=== PATIENT | male | born 1965 ===

== ENCOUNTER 2020-04-02 10:17 | Outpatient (REF) | payer MEDICAID, SELFPAY ==
[2020-04-02 12:33] LABS: MANUAL DIFF FLAG NO
[2020-04-02 12:41] LABS: Basophils Absolute Auto 0.1 X10*3/uL (0.0-0.2); Basophils Percent Auto 0.8 % (0-2); Hematocrit 38.9 % (42-52); Hemoglobin 12.7 g/dl (14.0-18.0); Imm Gran Abs Auto 0.01 X10*3/uL (0.00-0.03); Imm Gran Pct Auto 0.1 % (0.0-0.4); Lymphocytes Absolute Auto 1.6 X10*3/uL (1.2-4.9); Lymphocytes Percent Auto 20.4 % (20-40); Mean Corpuscular HGB Conc 32.6 g/dl (31.0-36.0); Mean Corpuscular Hemoglobin 30.5 pg (27.0-33.0); Mean Corpuscular Volume 93.3 fL (80-98); Mean Platelet Volume 11.7 fL (9.4-12.4); Monocytes Absolute Auto 0.5 X10*3/uL (0.1-1.2); Monocytes Percent Auto 5.9 % (2-11); Neutrophils Absolute Auto 5.5 X10*3/uL (2.0-8.3); Neutrophils Percent Auto 72.8 % (45-73); Platelet Count 186 X10*3/uL (160-400); Red Blood Count 4.17 X10*6/uL (4.60-5.80); Red Cell Distribution Width 13.4 % (11.0-16.0); White Blood Count 7.6 X10*3/uL (4.8-10.8)
== END 2020-04-02 10:18 | disposition home or self-care (01) ==
LOC: HO.LAB 10:17
PROVIDERS: PCP Internal Medicine Geriatric Medicine; Visit Provider Clinical Nurse Specialist Psychiatric/Mental Health, Adult
DX: Z79.899 Other long term (current) drug therapy (principal)
CPT/HCPCS: 36415; 85025

== ENCOUNTER 2020-05-02 11:16 | Outpatient (REF) | payer MEDICAID, SELFPAY ==
[2020-05-02 12:36] LABS: MANUAL DIFF FLAG NO
[2020-05-02 12:44] LABS: Basophils Absolute Auto 0.1 X10*3/uL (0.0-0.2); Basophils Percent Auto 1.1 % (0-2); Hemoglobin 13.2 g/dl (14.0-18.0); Imm Gran Abs Auto 0.01 X10*3/uL (0.00-0.03); Imm Gran Pct Auto 0.2 % (0.0-0.4); Lymphocytes Absolute Auto 1.4 X10*3/uL (1.2-4.9); Lymphocytes Percent Auto 29.2 % (20-40); Mean Corpuscular HGB Conc 31.4 g/dl (31.0-36.0); Mean Corpuscular Hemoglobin 29.4 pg (27.0-33.0); Mean Corpuscular Volume 93.5 fL (80-98); Mean Platelet Volume 10.8 fL (9.4-12.4); Monocytes Absolute Auto 0.4 X10*3/uL (0.1-1.2); Monocytes Percent Auto 7.6 % (2-11); Neutrophils Absolute Auto 2.9 X10*3/uL (2.0-8.3); Neutrophils Percent Auto 61.9 % (45-73); Platelet Count 219 X10*3/uL (160-400); Red Blood Count 4.49 X10*6/uL (4.60-5.80); Red Cell Distribution Width 13.6 % (11.0-16.0); White Blood Count 4.7 X10*3/uL (4.8-10.8)
== END 2020-05-02 11:17 | disposition home or self-care (01) ==
LOC: HO.LABR 11:16
PROVIDERS: PCP Internal Medicine Geriatric Medicine; Visit Provider Clinical Nurse Specialist Psychiatric/Mental Health, Adult
DX: Z79.899 Other long term (current) drug therapy (principal)
CPT/HCPCS: 36415; 85025

== ENCOUNTER 2020-06-18 10:05 | Outpatient (REF) | payer MEDICAID, SELFPAY ==
[2020-06-18 10:54] LABS: MANUAL DIFF FLAG NO
[2020-06-18 10:57] LABS: Basophils Absolute Auto 0.1 X10*3/uL (0.0-0.2); Hematocrit 41.7 % (42-52); Hemoglobin 13.3 g/dl (14.0-18.0); Imm Gran Abs Auto 0.01 X10*3/uL (0.00-0.03); Imm Gran Pct Auto 0.2 % (0.0-0.4); Lymphocytes Absolute Auto 1.8 X10*3/uL (1.2-4.9); Lymphocytes Percent Auto 30.4 % (20-40); Mean Corpuscular HGB Conc 31.9 g/dl (31.0-36.0); Mean Corpuscular Volume 94.1 fL (80-98); Mean Platelet Volume 11.3 fL (9.4-12.4); Monocytes Absolute Auto 0.4 X10*3/uL (0.1-1.2); Monocytes Percent Auto 7.1 % (2-11); Neut%MD 61.3 %; Neutrophils Absolute Auto 3.7 X10*3/uL (2.0-8.3); Neutrophils Percent Auto 61.3 % (45-73); Platelet Count 196 X10*3/uL (160-400); Red Blood Count 4.43 X10*6/uL (4.60-5.80); Red Cell Distribution Width 13.5 % (11.0-16.0)
== END 2020-06-18 10:06 | disposition home or self-care (01) ==
LOC: HO.LAB 10:05
PROVIDERS: PCP Internal Medicine Geriatric Medicine; Visit Provider Clinical Nurse Specialist Psychiatric/Mental Health, Adult
DX: Z79.899 Other long term (current) drug therapy (principal)
CPT/HCPCS: 36415; 85025; 85048

== ENCOUNTER 2020-07-25 16:29 | Outpatient (REF) | payer MEDICAID, SELFPAY ==
[2020-07-25 17:17] LABS: MANUAL DIFF FLAG NO
[2020-07-25 17:21] LABS: Basophils Absolute Auto 0.1 X10*3/uL (0.0-0.2); Basophils Percent Auto 0.8 % (0-2); Hematocrit 41.8 % (42-52); Hemoglobin 13.5 g/dl (14.0-18.0); Imm Gran Abs Auto 0.01 X10*3/uL (0.00-0.03); Imm Gran Pct Auto 0.1 % (0.0-0.4); Lymphocytes Absolute Auto 1.9 X10*3/uL (1.2-4.9); Lymphocytes Percent Auto 27.1 % (20-40); Mean Corpuscular HGB Conc 32.3 g/dl (31.0-36.0); Mean Corpuscular Hemoglobin 29.7 pg (27.0-33.0); Mean Corpuscular Volume 92.1 fL (80-98); Mean Platelet Volume 10.8 fL (9.4-12.4); Monocytes Absolute Auto 0.5 X10*3/uL (0.1-1.2); Monocytes Percent Auto 6.7 % (2-11); Neut%MD 65.3 %; Neutrophils Absolute Auto 4.6 X10*3/uL (2.0-8.3); Neutrophils Percent Auto 65.3 % (45-73); Platelet Count 200 X10*3/uL (160-400); Red Blood Count 4.54 X10*6/uL (4.60-5.80); Red Cell Distribution Width 13.4 % (11.0-16.0); WBCANC 7.1 X10*3/uL; White Blood Count 7.1 X10*3/uL (4.8-10.8)
== END 2020-07-25 16:30 | disposition home or self-care (01) ==
LOC: HO.LAB 16:29
PROVIDERS: Visit Provider Clinical Nurse Specialist Psychiatric/Mental Health, Adult
DX: Z79.899 Other long term (current) drug therapy (principal)
CPT/HCPCS: 36415; 85025; 85048

== ENCOUNTER 2020-08-29 10:17 | Outpatient (REF) | payer MEDICAID, SELFPAY ==
[2020-08-29 11:08] LABS: MANUAL DIFF FLAG NO
[2020-08-29 11:17] LABS: Basophils Absolute Auto 0.1 X10*3/uL (0.0-0.2); Basophils Percent Auto 0.9 % (0-2); Eosinophils Absolute Auto 0.1 X10*3/uL (0.0-0.4); Eosinophils Percent Auto 2.2 % (0-4); Hematocrit 41.3 % (42-52); Hemoglobin 13.3 g/dl (14.0-18.0); Imm Gran Abs Auto 0.01 X10*3/uL (0.00-0.03); Imm Gran Pct Auto 0.2 % (0.0-0.4); Lymphocytes Absolute Auto 1.7 X10*3/uL (1.2-4.9); Mean Corpuscular HGB Conc 32.2 g/dl (31.0-36.0); Mean Corpuscular Hemoglobin 29.7 pg (27.0-33.0); Mean Corpuscular Volume 92.2 fL (80-98); Mean Platelet Volume 10.8 fL (9.4-12.4); Monocytes Absolute Auto 0.4 X10*3/uL (0.1-1.2); Monocytes Percent Auto 6.8 % (2-11); Neut%MD 58.9 %; Neutrophils Absolute Auto 3.2 X10*3/uL (2.0-8.3); Neutrophils Percent Auto 58.9 % (45-73); Platelet Count 201 X10*3/uL (160-400); Red Blood Count 4.48 X10*6/uL (4.60-5.80); Red Cell Distribution Width 13.4 % (11.0-16.0); WBCANC 5.5 X10*3/uL; White Blood Count 5.5 X10*3/uL (4.8-10.8)
== END 2020-08-29 10:18 | disposition home or self-care (01) ==
LOC: HO.LABR 10:17
PROVIDERS: PCP Internal Medicine Geriatric Medicine; Visit Provider Clinical Nurse Specialist Psychiatric/Mental Health, Adult
DX: Z79.899 Other long term (current) drug therapy (principal)
CPT/HCPCS: 36415; 85025; 85048

== ENCOUNTER 2020-09-25 14:59 | Outpatient (REF) | payer MEDICAID, SELFPAY ==
[2020-09-25 15:46] LABS: MANUAL DIFF FLAG NO
[2020-09-25 15:53] LABS: Basophils Absolute Auto 0.1 X10*3/uL (0.0-0.2); Hematocrit 41.5 % (42-52); Hemoglobin 13.4 g/dl (14.0-18.0); Imm Gran Abs Auto 0.02 X10*3/uL (0.00-0.03); Imm Gran Pct Auto 0.3 % (0.0-0.4); Lymphocytes Absolute Auto 2.1 X10*3/uL (1.2-4.9); Lymphocytes Percent Auto 30.8 % (20-40); Mean Corpuscular HGB Conc 32.3 g/dl (31.0-36.0); Mean Corpuscular Hemoglobin 29.8 pg (27.0-33.0); Mean Corpuscular Volume 92.2 fL (80-98); Mean Platelet Volume 10.8 fL (9.4-12.4); Monocytes Absolute Auto 0.4 X10*3/uL (0.1-1.2); Monocytes Percent Auto 5.6 % (2-11); Neutrophils Absolute Auto 4.2 X10*3/uL (2.0-8.3); Neutrophils Percent Auto 62.3 % (45-73); Platelet Count 205 X10*3/uL (160-400); Red Cell Distribution Width 13.2 % (11.0-16.0); White Blood Count 6.8 X10*3/uL (4.8-10.8)
== END 2020-09-25 15:00 | disposition home or self-care (01) ==
LOC: HO.LABR 14:59
PROVIDERS: Visit Provider Clinical Nurse Specialist Psychiatric/Mental Health, Adult
DX: Z79.899 Other long term (current) drug therapy (principal)
CPT/HCPCS: 36415; 85025

== ENCOUNTER 2020-10-25 10:37 | Outpatient (REF) | payer MEDICAID, SELFPAY ==
[2020-10-25 11:30] LABS: MANUAL DIFF FLAG NO
[2020-10-25 11:42] LABS: Basophils Absolute Auto 0.1 X10*3/uL (0.0-0.2); Basophils Percent Auto 0.6 % (0-2); Hematocrit 40.4 % (42-52); Hemoglobin 13.2 g/dl (14.0-18.0); Imm Gran Abs Auto 0.02 X10*3/uL (0.00-0.03); Imm Gran Pct Auto 0.3 % (0.0-0.4); Lymphocytes Percent Auto 24.9 % (20-40); Mean Corpuscular HGB Conc 32.7 g/dl (31.0-36.0); Mean Corpuscular Volume 91.8 fL (80-98); Mean Platelet Volume 10.9 fL (9.4-12.4); Monocytes Absolute Auto 0.4 X10*3/uL (0.1-1.2); Monocytes Percent Auto 5.6 % (2-11); Neutrophils Absolute Auto 5.4 X10*3/uL (2.0-8.3); Neutrophils Percent Auto 68.6 % (45-73); Platelet Count 197 X10*3/uL (160-400); Red Cell Distribution Width 13.3 % (11.0-16.0); White Blood Count 7.8 X10*3/uL (4.8-10.8)
== END 2020-10-25 10:38 | disposition home or self-care (01) ==
LOC: HO.LABR 10:37
PROVIDERS: PCP Internal Medicine Geriatric Medicine; Visit Provider Clinical Nurse Specialist Psychiatric/Mental Health, Adult
DX: Z79.899 Other long term (current) drug therapy (principal)
CPT/HCPCS: 36415; 85025

== ENCOUNTER 2020-11-21 09:35 | Outpatient (REF) | payer MEDICAID, SELFPAY ==
[2020-11-21 10:08] LABS: MANUAL DIFF FLAG NO
[2020-11-21 10:18] LABS: Basophils Absolute Auto 0.1 X10*3/uL (0.0-0.2); Basophils Percent Auto 1.1 % (0-2); Eosinophils Absolute Auto 0.1 X10*3/uL (0.0-0.4); Eosinophils Percent Auto 2.1 % (0-4); Hematocrit 38.2 % (42-52); Hemoglobin 12.2 g/dl (14.0-18.0); Imm Gran Abs Auto 0.03 X10*3/uL (0.00-0.03); Imm Gran Pct Auto 0.5 % (0.0-0.4); Lymphocytes Absolute Auto 1.9 X10*3/uL (1.2-4.9); Lymphocytes Percent Auto 32.9 % (20-40); Mean Corpuscular HGB Conc 31.9 g/dl (31.0-36.0); Mean Corpuscular Hemoglobin 29.5 pg (27.0-33.0); Mean Corpuscular Volume 92.5 fL (80-98); Mean Platelet Volume 10.7 fL (9.4-12.4); Monocytes Absolute Auto 0.5 X10*3/uL (0.1-1.2); Monocytes Percent Auto 8.3 % (2-11); Neutrophils Absolute Auto 3.1 X10*3/uL (2.0-8.3); Neutrophils Percent Auto 55.1 % (45-73); Platelet Count 200 X10*3/uL (160-400); Red Blood Count 4.13 X10*6/uL (4.60-5.80); Red Cell Distribution Width 13.4 % (11.0-16.0); White Blood Count 5.7 X10*3/uL (4.8-10.8)
== END 2020-11-21 09:36 | disposition home or self-care (01) ==
LOC: HO.LABR 09:35
PROVIDERS: PCP Internal Medicine Geriatric Medicine; Visit Provider Clinical Nurse Specialist Psychiatric/Mental Health, Adult
DX: Z79.899 Other long term (current) drug therapy (principal)
CPT/HCPCS: 36415; 85025

== ENCOUNTER 2021-01-15 11:04 | Outpatient (REF) | payer MEDICAID, SELFPAY ==
[2021-01-15 11:29] LABS: MANUAL DIFF FLAG NO
[2021-01-15 11:38] LABS: Basophils Absolute Auto 0.1 X10*3/uL (0.0-0.2); Basophils Percent Auto 0.7 % (0-2); Hematocrit 41.8 % (42-52); Hemoglobin 13.6 g/dl (14.0-18.0); Imm Gran Abs Auto 0.02 X10*3/uL (0.00-0.03); Imm Gran Pct Auto 0.2 % (0.0-0.4); Lymphocytes Absolute Auto 2.3 X10*3/uL (1.2-4.9); Lymphocytes Percent Auto 27.4 % (20-40); Mean Corpuscular HGB Conc 32.5 g/dl (31.0-36.0); Mean Corpuscular Hemoglobin 29.6 pg (27.0-33.0); Mean Corpuscular Volume 91.1 fL (80-98); Mean Platelet Volume 10.9 fL (9.4-12.4); Monocytes Absolute Auto 0.5 X10*3/uL (0.1-1.2); Monocytes Percent Auto 6.3 % (2-11); Neutrophils Absolute Auto 5.4 X10*3/uL (2.0-8.3); Neutrophils Percent Auto 65.4 % (45-73); Platelet Count 221 X10*3/uL (160-400); Red Blood Count 4.59 X10*6/uL (4.60-5.80); Red Cell Distribution Width 13.4 % (11.0-16.0); White Blood Count 8.2 X10*3/uL (4.8-10.8)
== END 2021-01-15 11:05 | disposition home or self-care (01) ==
LOC: HO.LABR 11:04
PROVIDERS: PCP Internal Medicine Geriatric Medicine; Visit Provider Clinical Nurse Specialist Psychiatric/Mental Health, Adult
DX: Z79.899 Other long term (current) drug therapy (principal)
CPT/HCPCS: 36415; 85025

== ENCOUNTER 2021-02-12 11:49 | Outpatient (REF) | payer MEDICAID, SELFPAY ==
[2021-02-12 12:34] LABS: MANUAL DIFF FLAG NO
[2021-02-12 12:38] LABS: Basophils Absolute Auto 0.1 X10*3/uL (0.0-0.2); Basophils Percent Auto 0.8 % (0-2); Hematocrit 41.5 % (42-52); Hemoglobin 13.2 g/dl (14.0-18.0); Imm Gran Abs Auto 0.03 X10*3/uL (0.00-0.03); Imm Gran Pct Auto 0.4 % (0.0-0.4); Lymphocytes Absolute Auto 2.2 X10*3/uL (1.2-4.9); Lymphocytes Percent Auto 25.9 % (20-40); Mean Corpuscular HGB Conc 31.8 g/dl (31.0-36.0); Mean Corpuscular Hemoglobin 29.6 pg (27.0-33.0); Mean Platelet Volume 10.7 fL (9.4-12.4); Monocytes Absolute Auto 0.4 X10*3/uL (0.1-1.2); Monocytes Percent Auto 4.9 % (2-11); Neutrophils Absolute Auto 5.8 X10*3/uL (2.0-8.3); Platelet Count 197 X10*3/uL (160-400); Red Blood Count 4.46 X10*6/uL (4.60-5.80); Red Cell Distribution Width 13.7 % (11.0-16.0); White Blood Count 8.5 X10*3/uL (4.8-10.8)
== END 2021-02-12 11:50 | disposition home or self-care (01) ==
LOC: HO.LABR 11:49
PROVIDERS: PCP Internal Medicine Geriatric Medicine; Visit Provider Clinical Nurse Specialist Psychiatric/Mental Health, Adult
DX: Z79.899 Other long term (current) drug therapy (principal)
CPT/HCPCS: 36415; 85025

== ENCOUNTER 2021-03-14 09:31 | Outpatient (REF) | payer MEDICAID, SELFPAY ==
[2021-03-14 09:51] LABS: MANUAL DIFF FLAG NO
[2021-03-14 10:52] LABS: Basophils Absolute Auto 0.1 X10*3/uL (0.0-0.2); Basophils Percent Auto 0.6 % (0-2); Imm Gran Abs Auto 0.03 X10*3/uL (0.00-0.03); Imm Gran Pct Auto 0.4 % (0.0-0.4); Lymphocytes Absolute Auto 2.1 X10*3/uL (1.2-4.9); Lymphocytes Percent Auto 26.5 % (20-40); Mean Corpuscular HGB Conc 33.3 g/dl (31.0-36.0); Mean Corpuscular Hemoglobin 30.4 pg (27.0-33.0); Mean Corpuscular Volume 91.3 fL (80-98); Mean Platelet Volume 11.4 fL (9.4-12.4); Monocytes Absolute Auto 0.5 X10*3/uL (0.1-1.2); Monocytes Percent Auto 6.3 % (2-11); Neutrophils Absolute Auto 5.4 X10*3/uL (2.0-8.3); Neutrophils Percent Auto 66.2 % (45-73); Platelet Count 200 X10*3/uL (160-400); Red Blood Count 4.27 X10*6/uL (4.60-5.80); Red Cell Distribution Width 14.2 % (11.0-16.0); White Blood Count 8.1 X10*3/uL (4.8-10.8)
[2021-03-14 11:27] LABS: Alanine Aminotransferase 25 U/L (0-40); Albumin Level 3.9 g/dL (3.5-5.0); Alkaline Phosphatase 103 U/L (39-117); Anion Gap 11 (12-20); Aspartate Amino Transferase 25 U/L (5-37); Bilirubin Total 0.6 mg/dL (0.0-1.0); Blood Urea Nitrogen 10 mg/dL (9-16); Calcium 8.9 mg/dL (8.4-10.2); Carbon Dioxide 27 mmol/L (22-29); Chloride 106 mmol/L (96-108); Cholesterol 103 mg/dL; Estimated Glomerular Filt Rate > 60; Glucose Random 161 mg/dL (60-115); HDL Cholesterol 32 mg/dL; LDL Cholesterol Calculated 37 mg/dl; Potassium 4.2 mmol/L (3.3-5.1); Sodium 140 mmol/L (135-145); Total Protein 6.3 g/dL (6.5-8.0); Triglycerides 171 mg/dL
== END 2021-03-14 09:32 | disposition home or self-care (01) ==
LOC: HO.LAB 09:31
PROVIDERS: Absent Provider Internal Medicine Geriatric Medicine; PCP Internal Medicine Geriatric Medicine; Visit Provider Clinical Nurse Specialist Psychiatric/Mental Health, Adult
DX: E11.9 Type 2 diabetes mellitus without complications (principal); Z79.899 Other long term (current) drug therapy
CPT/HCPCS: 36415; 80053; 80061; 85025

== ENCOUNTER 2021-04-11 16:37 | Outpatient (REF) | payer MEDICAID, SELFPAY ==
[2021-04-11 16:47] LABS: MANUAL DIFF FLAG NO
[2021-04-11 17:53] LABS: Basophils Absolute Auto 0.1 X10*3/uL (0.0-0.2); Basophils Percent Auto 0.6 % (0-2); Hematocrit 40.7 % (42.0-52.0); Imm Gran Abs Auto 0.02 X10*3/uL (0.00-0.03); Imm Gran Pct Auto 0.3 % (0.0-0.4); Lymphocytes Absolute Auto 2.8 X10*3/uL (1.2-4.9); Lymphocytes Percent Auto 35.8 % (20-40); Mean Corpuscular HGB Conc 31.9 g/dl (31.0-36.0); Mean Corpuscular Hemoglobin 29.7 pg (27.0-33.0); Mean Corpuscular Volume 92.9 fL (80.0-98.0); Mean Platelet Volume 10.8 fL (9.4-12.4); Monocytes Absolute Auto 0.4 X10*3/uL (0.1-1.2); Monocytes Percent Auto 5.4 % (2-11); Neut%MD 57.9 %; Neutrophils Absolute Auto 4.5 x10*3/uL (2.0-8.3); Neutrophils Percent Auto 57.9 % (45-73); Platelet Count 226 X10*3/uL (160-400); Red Blood Count 4.38 X10*6/uL (4.60-5.80); Red Cell Distribution Width 13.8 % (11.0-16.0); WBCANC 7.7 X10*3/uL; White Blood Count 7.7 X10*3/uL (4.8-10.8)
== END 2021-04-11 16:38 | disposition home or self-care (01) ==
LOC: HO.LABR 16:37
PROVIDERS: PCP Internal Medicine Geriatric Medicine; Visit Provider Clinical Nurse Specialist Psychiatric/Mental Health, Adult
DX: Z79.899 Other long term (current) drug therapy (principal)
CPT/HCPCS: 36415; 85025

== ENCOUNTER 2021-05-07 10:13 | Outpatient (REF) | payer MEDICAID, SELFPAY ==
[2021-05-07 10:24] LABS: MANUAL DIFF FLAG NO
[2021-05-07 10:38] LABS: Basophils Absolute Auto 0.1 X10*3/uL (0.0-0.2); Basophils Percent Auto 0.9 % (0-2); Hematocrit 41.2 % (42.0-52.0); Hemoglobin 13.3 g/dl (14.0-18.0); Imm Gran Abs Auto 0.01 X10*3/uL (0.00-0.03); Imm Gran Pct Auto 0.1 % (0.0-0.4); Lymphocytes Absolute Auto 1.5 X10*3/uL (1.2-4.9); Lymphocytes Percent Auto 20.7 % (20-40); Mean Corpuscular HGB Conc 32.3 g/dl (31.0-36.0); Mean Corpuscular Volume 92.8 fL (80.0-98.0); Mean Platelet Volume 10.1 fL (9.4-12.4); Monocytes Absolute Auto 0.4 X10*3/uL (0.1-1.2); Neut%MD 72.3 %; Neutrophils Absolute Auto 5.3 x10*3/uL (2.0-8.3); Neutrophils Percent Auto 72.3 % (45-73); Platelet Count 216 X10*3/uL (160-400); Red Blood Count 4.44 X10*6/uL (4.60-5.80); WBCANC 7.4 X10*3/uL; White Blood Count 7.4 X10*3/uL (4.8-10.8)
== END 2021-05-07 10:14 | disposition home or self-care (01) ==
LOC: HO.LAB 10:13
PROVIDERS: Visit Provider Clinical Nurse Specialist Psychiatric/Mental Health, Adult
DX: Z79.899 Other long term (current) drug therapy (principal)
CPT/HCPCS: 36415; 85025

== ENCOUNTER 2021-07-09 09:26 | Outpatient (REF) | payer MEDICAID, SELFPAY ==
[2021-07-09 09:52] LABS: MANUAL DIFF FLAG NO
[2021-07-09 10:04] LABS: Basophils Absolute Auto 0.1 X10*3/uL (0.0-0.2); Basophils Percent Auto 0.9 % (0-2); Hematocrit 41.9 % (42.0-52.0); Hemoglobin 13.5 g/dl (14.0-18.0); Imm Gran Abs Auto 0.04 X10*3/uL (0.00-0.03); Imm Gran Pct Auto 0.4 % (0.0-0.4); Lymphocytes Absolute Auto 2.2 X10*3/uL (1.2-4.9); Lymphocytes Percent Auto 23.8 % (20-40); Mean Corpuscular HGB Conc 32.2 g/dl (31.0-36.0); Mean Corpuscular Hemoglobin 29.9 pg (27.0-33.0); Mean Corpuscular Volume 92.9 fL (80.0-98.0); Mean Platelet Volume 10.7 fL (9.4-12.4); Monocytes Absolute Auto 0.5 X10*3/uL (0.1-1.2); Monocytes Percent Auto 5.3 % (2-11); Neut%MD 69.6 %; Neutrophils Absolute Auto 6.4 x10*3/uL (2.0-8.3); Neutrophils Percent Auto 69.6 % (45-73); Platelet Count 200 X10*3/uL (160-400); Red Blood Count 4.51 X10*6/uL (4.60-5.80); Red Cell Distribution Width 13.5 % (11.0-16.0); WBCANC 9.1 X10*3/uL; White Blood Count 9.1 X10*3/uL (4.8-10.8)
== END 2021-07-09 09:27 | disposition home or self-care (01) ==
LOC: HO.LABR 09:26
PROVIDERS: PCP Internal Medicine Geriatric Medicine; Visit Provider Clinical Nurse Specialist Psychiatric/Mental Health, Adult
DX: Z79.899 Other long term (current) drug therapy (principal)
CPT/HCPCS: 36415; 85025

== ENCOUNTER 2021-08-04 09:51 | Outpatient (REF) | payer MEDICAID, SELFPAY ==
[2021-08-04 10:19] LABS: MANUAL DIFF FLAG NO
[2021-08-04 10:59] LABS: Basophils Absolute Auto 0.1 X10*3/uL (0.0-0.2); Basophils Percent Auto 1.1 % (0-2); Hematocrit 42.6 % (42.0-52.0); Hemoglobin 13.3 g/dl (14.0-18.0); Imm Gran Abs Auto 0.02 X10*3/uL (0.00-0.03); Imm Gran Pct Auto 0.3 % (0.0-0.4); Lymphocytes Absolute Auto 1.7 X10*3/uL (1.2-4.9); Lymphocytes Percent Auto 25.9 % (20-40); Mean Corpuscular HGB Conc 31.2 g/dl (31.0-36.0); Mean Corpuscular Hemoglobin 29.2 pg (27.0-33.0); Mean Corpuscular Volume 93.6 fL (80.0-98.0); Mean Platelet Volume 11.1 fL (9.4-12.4); Monocytes Absolute Auto 0.4 X10*3/uL (0.1-1.2); Neutrophils Absolute Auto 4.2 x10*3/uL (2.0-8.3); Neutrophils Percent Auto 66.7 % (45-73); Platelet Count 187 X10*3/uL (160-400); Red Blood Count 4.55 X10*6/uL (4.60-5.80); Red Cell Distribution Width 13.5 % (11.0-16.0); White Blood Count 6.4 X10*3/uL (4.8-10.8)
== END 2021-08-04 09:52 | disposition home or self-care (01) ==
LOC: HO.LABR 09:51
PROVIDERS: PCP Internal Medicine Geriatric Medicine; Visit Provider Clinical Nurse Specialist Psychiatric/Mental Health, Adult
DX: Z79.899 Other long term (current) drug therapy (principal)
CPT/HCPCS: 36415; 85025

== ENCOUNTER 2021-09-04 09:33 | Outpatient (REF) | payer MEDICAID, SELFPAY ==
[2021-09-04 09:56] LABS: MANUAL DIFF FLAG NO
[2021-09-04 10:17] LABS: Basophils Absolute Auto 0.1 X10*3/uL (0.0-0.2); Basophils Percent Auto 1.6 % (0-2); Hemoglobin 13.1 g/dl (14.0-18.0); Imm Gran Abs Auto 0.01 X10*3/uL (0.00-0.03); Imm Gran Pct Auto 0.2 % (0.0-0.4); Lymphocytes Absolute Auto 2.1 X10*3/uL (1.2-4.9); Lymphocytes Percent Auto 37.6 % (20-40); Mean Corpuscular Hemoglobin 29.1 pg (27.0-33.0); Mean Corpuscular Volume 91.1 fL (80.0-98.0); Mean Platelet Volume 10.7 fL (9.4-12.4); Monocytes Absolute Auto 0.4 X10*3/uL (0.1-1.2); Monocytes Percent Auto 7.5 % (2-11); Neutrophils Percent Auto 53.1 % (45-73); Platelet Count 190 X10*3/uL (160-400); Red Cell Distribution Width 13.5 % (11.0-16.0); White Blood Count 5.6 X10*3/uL (4.8-10.8)
== END 2021-09-04 09:34 | disposition home or self-care (01) ==
LOC: HO.LABR 09:33
PROVIDERS: PCP Internal Medicine Geriatric Medicine; Visit Provider Clinical Nurse Specialist Psychiatric/Mental Health, Adult
DX: Z79.899 Other long term (current) drug therapy (principal)
CPT/HCPCS: 36415; 85025

== ENCOUNTER 2021-10-17 09:33 | Outpatient (REF) | payer MEDICAID, SELFPAY ==
[2021-10-22 17:02] LABS: Clozapine (Clozaril) 673 mcg/L; Norclozapine 219 mcg/L (25-400)
== END 2021-10-17 09:34 | disposition home or self-care (01) ==
LOC: HO.LAB 09:33
PROVIDERS: PCP Internal Medicine Geriatric Medicine; Visit Provider Clinical Nurse Specialist Psychiatric/Mental Health, Adult
DX: Z79.899 Other long term (current) drug therapy (principal)
CPT/HCPCS: 36415; 80159

== ENCOUNTER 2021-11-05 10:25 | Outpatient (REF) | payer MEDICAID, SELFPAY ==
[2021-11-05 10:49] LABS: MANUAL DIFF FLAG NO
[2021-11-05 11:50] LABS: Basophils Absolute Auto 0.1 X10*3/uL (0.0-0.2); Hematocrit 41.2 % (42.0-52.0); Hemoglobin 13.2 g/dl (14.0-18.0); Imm Gran Abs Auto 0.02 X10*3/uL (0.00-0.03); Imm Gran Pct Auto 0.4 % (0.0-0.4); Lymphocytes Absolute Auto 1.7 X10*3/uL (1.2-4.9); Lymphocytes Percent Auto 35.2 % (20-40); Mean Corpuscular Hemoglobin 29.2 pg (27.0-33.0); Mean Corpuscular Volume 91.2 fL (80.0-98.0); Mean Platelet Volume 11.5 fL (9.4-12.4); Monocytes Absolute Auto 0.3 X10*3/uL (0.1-1.2); Monocytes Percent Auto 5.3 % (2-11); Neutrophils Absolute Auto 2.9 x10*3/uL (2.0-8.3); Neutrophils Percent Auto 58.1 % (45-73); Platelet Count 197 X10*3/uL (160-400); Red Blood Count 4.52 X10*6/uL (4.60-5.80); Red Cell Distribution Width 13.9 % (11.0-16.0)
== END 2021-11-05 10:26 | disposition home or self-care (01) ==
LOC: HO.LABR 10:25
PROVIDERS: PCP Internal Medicine Geriatric Medicine; Visit Provider Clinical Nurse Specialist Psychiatric/Mental Health, Adult
DX: Z79.899 Other long term (current) drug therapy (principal)
CPT/HCPCS: 36415; 85025

== ENCOUNTER 2021-12-02 16:29 | Outpatient (REF) | payer MEDICAID, SELFPAY ==
[2021-12-02 16:46] LABS: MANUAL DIFF FLAG NO
[2021-12-02 17:05] LABS: Basophils Absolute Auto 0.1 X10*3/uL (0.0-0.2); Basophils Percent Auto 0.9 % (0-2); Hematocrit 40.5 % (42.0-52.0); Hemoglobin 13.3 g/dl (14.0-18.0); Imm Gran Abs Auto 0.02 X10*3/uL (0.00-0.03); Imm Gran Pct Auto 0.2 % (0.0-0.4); Lymphocytes Percent Auto 24.8 % (20-40); Mean Corpuscular HGB Conc 32.8 g/dl (31.0-36.0); Mean Corpuscular Hemoglobin 29.5 pg (27.0-33.0); Mean Corpuscular Volume 89.8 fL (80.0-98.0); Mean Platelet Volume 10.8 fL (9.4-12.4); Monocytes Absolute Auto 0.5 X10*3/uL (0.1-1.2); Neutrophils Absolute Auto 5.5 x10*3/uL (2.0-8.3); Neutrophils Percent Auto 68.1 % (45-73); Platelet Count 189 X10*3/uL (160-400); Red Blood Count 4.51 X10*6/uL (4.60-5.80); Red Cell Distribution Width 13.7 % (11.0-16.0)
== END 2021-12-02 16:30 | disposition home or self-care (01) ==
LOC: HO.LABR 16:29
PROVIDERS: PCP Internal Medicine Geriatric Medicine; Visit Provider Clinical Nurse Specialist Psychiatric/Mental Health, Adult
DX: Z79.899 Other long term (current) drug therapy (principal)
CPT/HCPCS: 36415; 85025

== ENCOUNTER 2021-12-11 10:58 | Emergency (ER) | payer MEDICAID, SELFPAY ==
[2021-12-11 11:26] VITALS: BP 104/77; PULSE 95; RESP 18; TEMP 36.8; O2SAT 97; BMI 29.9
--- NOTE | 2021-12-11 14:15 | ED_ITS ---
HPI - Animal Bite General Chief Complaint: Animal Bite Stated Complaint: ? bit by bat Time Seen by Provider: 12/11/21 13:22 Source: patient Mode of arrival: ambulatory History of Present Illness HPI narrative: 56-year-old male with no significant past medical history presenting to the ED complaining of bad exposure 2-3 days ago. Reports about was flying around his home, denies known a bite/scratch. Patient admits he was able to kill the bat. Tetanus out of date MD complaint: possible animal exposure Onset (ago): day(s) Related Data Allergies Allergy/AdvReac Type Severity Reaction Status Date / Time No Known Allergies Allergy Mild NONE Verified 12/11/21 11:25 Review of Systems Review of Systems: Constitutional: No Fever, No Chills ENT/Mouth: No Ear Pain, No Nasal Congestion, No sore throat, No Rhinorrhea, No Swallowing Difficulty Cardiovascular: No Chest Pain, No SOB Respiratory: No Cough, No Sputum, No Wheezing Gastrointestinal: No Nausea, No Vomiting, No Diarrhea, No Constipation, No Abdominal pain Genitourinary: No Dysuria, No Urinary Frequency, No Hematuria Musculoskeletal: No joint pain, No Myalgias, No Joint Swelling Skin: No Skin Lesions, No rash Neuro: No Weakness, No Numbness, No Paresthesias Yes all other systems are reviewed and are negative Constitutional: Constitutional: Reports as per HPI [facility] Past Medical History Attestation statement: The following information was validated with the patient. Social History Social History Advance Directives: No Advance Directives Information Provided: No Physical Exam ED Vital Signs: Vital Signs - 24 hr 12/11/21 11:26 Temperature 98.2 F Pulse Rate 95 Respiratory Rate 18 Blood Pressure 104/77 Pulse Oximetry 97 Oxygen Delivery Method Room Air BMI result Body Mass Index 29.9 Const General: cooperative, healthy appearing and no acute distress Orientation/consciousness: patient oriented x3 Limitations: no limitations HENMT Head: Yes normal to inspection and Yes atraumatic Ears: hearing grossly normal bilaterally General nose exam: Normal external nose present Face and sinus: Yes normal facial exam Eyes General: appearance normal, both eyes and all related structures EOM: EOMs intact bilaterally Neck Neck: Yes normal visual inspection and Yes no meningeal signs Resp Effort & Inspection: normal respiratory effort and no respiratory distress Auscultation: clear to auscultation bilaterally Cardio Rate: regular rate Heart sounds: S1 normal heart sound present and S2 normal heart sound present Skin Rashes: no rashes Wounds: no wounds Neuro General: patient oriented x3, tone normal and no meningeal signs Gait exam (Neuro): Normal gait present Extrem General: Yes normal to inspection MDM - Animal Bite MDM Narrative Medical decision making narrative: 56-year-old male with no significant past medical history presenting to the ED complaining of bad exposure 2-3 days ago. On exam vital signs stable, NAD/nontoxic-appearing, asymptomatic at present. No appreciable bite wound. Will give rabies immune globulin, vaccine, and update tetanus Differential Diagnosis Differential diagnosis: Likely bite by animal and rabies contact Medical Records Attestation: I reviewed the patient's medical records. Lab Data Attestation: I reviewed the patient's lab results. Discharge Plan Discharge Clinical Impression: Bite by animal Patient Disposition: Home, Self-Care Instructions: Rabies (ED) Additional Instructions: You need to return to medical day stay on 12/14, 12/18, and 12/25 for the remainder your rabies vaccinations MEDICAL DAY STAY [phone] YOUR TETANUS WAS ALSO UPDATED TODAY IN THE EMERGENCY DEPARTMENT PLEASE FOLLOW-UP WITH HER DOCTOR NEEDED
[2021-12-11] MEDS: Diphth,Pertus(ACell),Tet Adult 0.5 ML SYRINGE IM (15:00)
[2021-12-11] MEDS: Rabies Vaccine (PCEC)/PF 1 ML VIAL IM (15:03)
[2021-12-11] MEDS: Rabies Immune Globulin/PF 900 UNIT/3 ML VIAL 1738 UNIT IM (15:06)
== END 2021-12-11 15:42 | disposition home or self-care (01) ==
PROVIDERS: Emergency Provider Emergency Medicine Emergency Medical Services; PCP Internal Medicine Geriatric Medicine
DX: T14.8XXA Other injury of unspecified body region, initial encounter (principal); W55.81XA Bitten by other mammals, initial encounter; Y93.9 Activity, unspecified; Y92.039 Unspecified place in apartment as the place of occurrence of the external cause; Y99.9 Unspecified external cause status; Z20.3 Contact with and (suspected) exposure to rabies
CPT/HCPCS: 90375; 90471; 90472; 90675; 90715; 96372; 99283; 99284

== ENCOUNTER 2021-12-15 13:55 | Outpatient (REF) | payer MEDICAID, SELFPAY | END 2021-12-15 13:56 | disposition home or self-care (01) | LOC: HO.MDS 13:55 | PROVIDERS: Visit Provider Physician Assistant | DX: Z29.14 Encounter for prophylactic rabies immune globulin (principal); Z20.3 Contact with and (suspected) exposure to rabies | CPT/HCPCS: 90471; 90675 ==

== ENCOUNTER 2021-12-19 14:23 | Outpatient (REF) | payer MEDICAID, SELFPAY | END 2021-12-19 14:24 | disposition home or self-care (01) | LOC: HO.MDS 14:23 | PROVIDERS: Visit Provider Physician Assistant | DX: Z29.14 Encounter for prophylactic rabies immune globulin (principal); T14.8XXD Other injury of unspecified body region, subsequent encounter; W53.81XD Bitten by other rodent, subsequent encounter; Z20.3 Contact with and (suspected) exposure to rabies | CPT/HCPCS: 90471; 90675 ==

== ENCOUNTER 2021-12-26 09:05 | Outpatient (REF) | payer MEDICAID, SELFPAY | END 2021-12-26 09:06 | disposition home or self-care (01) | LOC: HO.MDS 09:05 | PROVIDERS: Visit Provider Physician Assistant | DX: Z29.14 Encounter for prophylactic rabies immune globulin (principal); T14.8XXD Other injury of unspecified body region, subsequent encounter; W53.81XD Bitten by other rodent, subsequent encounter; Z20.3 Contact with and (suspected) exposure to rabies | CPT/HCPCS: 90471; 90675 ==

== ENCOUNTER 2022-01-22 12:29 | Outpatient (REF) | payer MEDICAID, SELFPAY ==
[2022-01-22 13:23] LABS: Basophils Absolute Auto 0.1 X10*3/uL (0.0-0.2); Basophils Percent Auto 1.1 % (0-2); Hematocrit 39.9 % (42.0-52.0); Hemoglobin 13.1 g/dl (14.0-18.0); Imm Gran Abs Auto 0.03 X10*3/uL (0.00-0.03); Imm Gran Pct Auto 0.3 % (0.0-0.4); Lymphocytes Absolute Auto 2.5 X10*3/uL (1.2-4.9); Lymphocytes Percent Auto 28.2 % (20-40); MANUAL DIFF FLAG NO; Mean Corpuscular HGB Conc 32.8 g/dl (31.0-36.0); Mean Corpuscular Hemoglobin 29.8 pg (27.0-33.0); Mean Corpuscular Volume 90.7 fL (80.0-98.0); Mean Platelet Volume 11.1 fL (9.4-12.4); Monocytes Absolute Auto 0.4 X10*3/uL (0.1-1.2); Monocytes Percent Auto 4.8 % (2-11); Neut%MD 65.6 %; Neutrophils Absolute Auto 5.9 x10*3/uL (2.0-8.3); Neutrophils Percent Auto 65.6 % (45-73); Platelet Count 179 X10*3/uL (160-400)
== END 2022-01-22 12:30 | disposition home or self-care (01) ==
LOC: HO.LABR 12:29
PROVIDERS: PCP Internal Medicine Geriatric Medicine; Visit Provider Clinical Nurse Specialist Psychiatric/Mental Health, Adult
DX: Z79.899 Other long term (current) drug therapy (principal)
CPT/HCPCS: 36415; 85025

== ENCOUNTER 2022-02-16 09:54 | Outpatient (REF) | payer MEDICAID, SELFPAY ==
[2022-02-16 10:07] LABS: MANUAL DIFF FLAG NO
[2022-02-16 10:55] LABS: Basophils Absolute Auto 0.1 X10*3/uL (0.0-0.2); Hematocrit 42.1 % (42.0-52.0); Hemoglobin 13.3 g/dl (14.0-18.0); Imm Gran Abs Auto 0.02 X10*3/uL (0.00-0.03); Imm Gran Pct Auto 0.3 % (0.0-0.4); Lymphocytes Absolute Auto 1.8 X10*3/uL (1.2-4.9); Lymphocytes Percent Auto 28.8 % (20-40); Mean Corpuscular HGB Conc 31.6 g/dl (31.0-36.0); Mean Corpuscular Hemoglobin 29.2 pg (27.0-33.0); Mean Corpuscular Volume 92.3 fL (80.0-98.0); Mean Platelet Volume 11.4 fL (9.4-12.4); Monocytes Absolute Auto 0.4 X10*3/uL (0.1-1.2); Monocytes Percent Auto 6.9 % (2-11); Platelet Count 191 X10*3/uL (160-400); Red Blood Count 4.56 X10*6/uL (4.60-5.80); Red Cell Distribution Width 13.8 % (11.0-16.0); WBCANC 6.3 X10*3/uL; White Blood Count 6.3 X10*3/uL (4.8-10.8)
== END 2022-02-16 09:55 | disposition home or self-care (01) ==
LOC: HO.LABR 09:54
PROVIDERS: PCP Internal Medicine Geriatric Medicine; Visit Provider Clinical Nurse Specialist Psychiatric/Mental Health, Adult
DX: Z79.899 Other long term (current) drug therapy (principal)
CPT/HCPCS: 36415; 85025

== ENCOUNTER 2022-03-24 09:27 | Outpatient (REF) | payer MEDICAID, SELFPAY ==
[2022-03-24 09:49] LABS: MANUAL DIFF FLAG NO
[2022-03-24 10:13] LABS: Basophils Absolute Auto 0.1 X10*3/uL (0.0-0.2); Basophils Percent Auto 1.1 % (0-2); Hematocrit 41.5 % (42.0-52.0); Hemoglobin 13.1 g/dl (14.0-18.0); Imm Gran Abs Auto 0.01 X10*3/uL (0.00-0.03); Imm Gran Pct Auto 0.2 % (0.0-0.4); Lymphocytes Absolute Auto 1.8 X10*3/uL (1.2-4.9); Lymphocytes Percent Auto 30.9 % (20-40); Mean Corpuscular HGB Conc 31.6 g/dl (31.0-36.0); Mean Corpuscular Hemoglobin 28.8 pg (27.0-33.0); Mean Corpuscular Volume 91.2 fL (80.0-98.0); Monocytes Absolute Auto 0.3 X10*3/uL (0.1-1.2); Monocytes Percent Auto 5.8 % (2-11); Neutrophils Absolute Auto 3.5 x10*3/uL (2.0-8.3); Platelet Count 186 X10*3/uL (160-400); Red Blood Count 4.55 X10*6/uL (4.60-5.80); Red Cell Distribution Width 13.8 % (11.0-16.0); White Blood Count 5.7 X10*3/uL (4.8-10.8)
== END 2022-03-24 09:28 | disposition home or self-care (01) ==
LOC: HO.LABR 09:27
PROVIDERS: PCP Internal Medicine Geriatric Medicine; Visit Provider Clinical Nurse Specialist Psychiatric/Mental Health, Adult
DX: Z79.899 Other long term (current) drug therapy (principal)
CPT/HCPCS: 36415; 85025

== ENCOUNTER 2022-04-23 09:20 | Outpatient (REF) | payer MEDICAID, SELFPAY ==
[2022-04-23 09:41] LABS: MANUAL DIFF FLAG NO
[2022-04-23 10:32] LABS: Basophils Absolute Auto 0.1 X10*3/uL (0.0-0.2); Basophils Percent Auto 1.1 % (0-2); Eosinophils Absolute Auto 0.1 X10*3/uL (0.0-0.4); Eosinophils Percent Auto 1.8 % (0-4); Hemoglobin 13.3 g/dl (14.0-18.0); Imm Gran Abs Auto 0.02 X10*3/uL (0.00-0.03); Imm Gran Pct Auto 0.4 % (0.0-0.4); Lymphocytes Absolute Auto 2.1 X10*3/uL (1.2-4.9); Lymphocytes Percent Auto 37.6 % (20-40); Mean Corpuscular HGB Conc 31.7 g/dl (31.0-36.0); Mean Corpuscular Hemoglobin 29.2 pg (27.0-33.0); Mean Corpuscular Volume 92.1 fL (80.0-98.0); Mean Platelet Volume 11.2 fL (9.4-12.4); Monocytes Absolute Auto 0.4 X10*3/uL (0.1-1.2); Monocytes Percent Auto 6.4 % (2-11); Neutrophils Absolute Auto 2.9 x10*3/uL (2.0-8.3); Neutrophils Percent Auto 52.7 % (45-73); Platelet Count 188 X10*3/uL (160-400); Red Blood Count 4.56 X10*6/uL (4.60-5.80); Red Cell Distribution Width 13.7 % (11.0-16.0); White Blood Count 5.5 X10*3/uL (4.8-10.8)
== END 2022-04-23 09:21 | disposition home or self-care (01) ==
LOC: HO.LABR 09:20
PROVIDERS: PCP Internal Medicine Geriatric Medicine; Visit Provider Clinical Nurse Specialist Psychiatric/Mental Health, Adult
DX: Z79.899 Other long term (current) drug therapy (principal)
CPT/HCPCS: 36415; 85025

== ENCOUNTER 2022-06-11 11:38 | Outpatient (REF) | payer MEDICAID, SELFPAY ==
[2022-06-11 11:53] LABS: MANUAL DIFF FLAG NO
[2022-06-11 12:40] LABS: Basophils Absolute Auto 0.1 X10*3/uL (0.0-0.2); Basophils Percent Auto 0.6 % (0-2); Hemoglobin 13.4 g/dl (14.0-18.0); Imm Gran Abs Auto 0.02 X10*3/uL (0.00-0.03); Imm Gran Pct Auto 0.3 % (0.0-0.4); Lymphocytes Absolute Auto 1.3 X10*3/uL (1.2-4.9); Lymphocytes Percent Auto 17.1 % (20-40); Mean Corpuscular HGB Conc 32.7 g/dl (31.0-36.0); Mean Corpuscular Hemoglobin 29.8 pg (27.0-33.0); Mean Corpuscular Volume 91.1 fL (80.0-98.0); Mean Platelet Volume 10.7 fL (9.4-12.4); Monocytes Absolute Auto 0.5 X10*3/uL (0.1-1.2); Monocytes Percent Auto 6.8 % (2-11); Neutrophils Absolute Auto 5.8 x10*3/uL (2.0-8.3); Neutrophils Percent Auto 75.2 % (45-73); Platelet Count 219 X10*3/uL (160-400); Red Cell Distribution Width 13.7 % (11.0-16.0); White Blood Count 7.8 X10*3/uL (4.8-10.8)
== END 2022-06-11 11:39 | disposition home or self-care (01) ==
LOC: HO.LAB 11:38
PROVIDERS: PCP Internal Medicine Geriatric Medicine; Visit Provider Clinical Nurse Specialist Psychiatric/Mental Health, Adult
DX: Z79.899 Other long term (current) drug therapy (principal)
CPT/HCPCS: 36415; 85025

== ENCOUNTER 2022-07-15 10:55 | Outpatient (REF) | payer MEDICAID, SELFPAY ==
[2022-07-15 11:15] LABS: MANUAL DIFF FLAG NO
[2022-07-15 11:16] LABS: Basophils Absolute Auto 0.1 X10*3/uL (0.0-0.2); Basophils Percent Auto 0.7 % (0-2); Hematocrit 41.1 % (42.0-52.0); Hemoglobin 13.5 g/dl (14.0-18.0); Imm Gran Abs Auto 0.03 X10*3/uL (0.00-0.03); Imm Gran Pct Auto 0.3 % (0.0-0.4); Lymphocytes Absolute Auto 1.9 X10*3/uL (1.2-4.9); Lymphocytes Percent Auto 19.9 % (20-40); Mean Corpuscular HGB Conc 32.8 g/dl (31.0-36.0); Mean Corpuscular Hemoglobin 29.8 pg (27.0-33.0); Mean Corpuscular Volume 90.7 fL (80.0-98.0); Mean Platelet Volume 10.2 fL (9.4-12.4); Monocytes Absolute Auto 0.5 X10*3/uL (0.1-1.2); Monocytes Percent Auto 5.1 % (2-11); Platelet Count 213 X10*3/uL (160-400); Red Blood Count 4.53 X10*6/uL (4.60-5.80); Red Cell Distribution Width 13.7 % (11.0-16.0); White Blood Count 9.4 X10*3/uL (4.8-10.8)
== END 2022-07-15 10:56 | disposition home or self-care (01) ==
LOC: HO.LABR 10:55
PROVIDERS: PCP Internal Medicine Geriatric Medicine; Visit Provider Clinical Nurse Specialist Psychiatric/Mental Health, Adult
DX: Z79.899 Other long term (current) drug therapy (principal)
CPT/HCPCS: 36415; 85025

== ENCOUNTER 2022-07-24 09:34 | Emergency (ER) | payer MEDICAID, SELFPAY ==
--- NOTE | ~2022-07-24 | XR_ITS ---
EXAMINATION: XR KNEE, RIGHT CLINICAL INFORMATION: Right knee pain. COMPARISON: None TECHNIQUE: Four views of the right knee. FINDINGS: Bones and soft tissues are normal. No fracture or joint effusion. Alignment is anatomic. Joint spaces are well maintained. No abnormal soft tissue calcification. XR/XR knee RT 4V IMPRESSION: Unremarkable right knee.
[2022-07-24 09:37] VITALS: BP 130/81; PULSE 101; RESP 18; TEMP 36.7; O2SAT 96; BMI 29.3
--- NOTE | 2022-07-24 10:41 | ED_ITS ---
HPI - General Adult General Chief complaint: Extremity Injury, Lower Stated complaint: R leg injury Time Seen by Provider: 07/24/22 10:40 Source: patient Mode of arrival: ambulatory Limitations: no limitations History of Present Illness HPI narrative: Patient is a 57 year old assigned male at with no reported medical history presenting to the emergency department today with right knee pain. Patient states that 4 days ago he slipped on some ice and his right knee has hurt ever since. Patient denies hitting his head and denies any loss of consciousness. Patient denies any dizziness, lightheadedness, abdominal pain, nausea, vomiting, fever, chills, blurry vision, double vision, loss of vision, chest pain, difficulty breathing, shortness of breath, back pain, night sweats, pain with urination, increased urinary frequency, increased urinary urgency, blood in his urine or stool, syncope or a near syncopal episode, bowel incontinence, bladder incontinence, bowel retention, bladder retention, or any other complaints at this time. Onset (ago): day(s) (4) Location: right and lower extremity Radiation: non-radiation Severity: mild Severity scale (1-10): 3 Quality: dull Pain Consistency: constant Relieving factors: none Exacerbating factors: movement Associated symptoms: denies other symptoms Treatments prior to arrival: none Related Data Previous Rx's Medication Instructions Recorded acetaminophen 500 mg tablet 500 mg PO Q6H PRN pain #14 tabs 07/24/22 ibuprofen 800 mg tablet 800 mg PO Q6H PRN pain #14 tabs 07/24/22 Allergies Allergy/AdvReac Type Severity Reaction Status Date / Time No Known Allergies Allergy Mild NONE Verified 12/11/21 11:25 Review of Systems Constitutional: Constitutional: Reports no additional constitutional complaints, Denies chills, Denies fever(s) and Denies night sweats Eyes: Eyes: Reports no additional eye complaints, Denies blurry vision, Denies change in vision, Denies diplopia, Denies eye discharge, Denies loss of vision and Denies eye pain ENT: Denies dizziness Cardiovascular: Cardiovascular: Reports no additional cardiovascular complaints, Denies chest pain, Denies lightheadedness, Denies Loss of Consciousness and Denies dyspnea Respiratory: Respiratory: Reports no additional respiratory complaints and Denies dyspnea Gastrointestinal: Gastrointestinal: Reports no additional gastrointestinal complaints, Denies abdominal pain, Denies melena, Denies hematochezia, Denies change in bowel habits and Denies change in stool character Genitourinary: Genitourinary: Reports no additional male genitourinary complaints, Denies hematuria, Denies oliguria, Denies difficulty urinating, Denies dysuria, Denies urinary frequency, Denies urinary hesitancy, Denies urinary incontinence and Denies urinary urgency Musculoskeletal: Musculoskeletal: Reports no additional musculoskeletal complaints, Denies numbness and Denies tingling Comments: right knee pain Neurologic: Denies dizziness, Denies loss of vision, Denies numbness and Denies tingling Psychiatric: Psychiatric: Reports no additional psychiatric complaints Endocrine: Endocrine: Reports no additional endocrine complaints Hematologic/Lymphatic: Hematologic/Lymphatic: Reports no additional hematologic/lymphatic complaints Allergic/Immunologic: Allergic/Immunologic: Reports no additional allergic/immunologic complaints PMFSH Past Medical History Attestation statement: The following information was validated with the patient. Source: old records reviewed and nursing notes reviewed Social History Social History Smoked in Last 30 Days: No Use of substances other than those prescribed or required for medical reasons: No Any prior treatment program specific to substance use: No Advance Directives: No Physical Exam ED Vital Signs: Vital Signs - 24 hr 07/24/22 09:37 Temperature 98.0 F Pulse Rate 101 H Respiratory Rate 18 Blood Pressure 130/81 Pulse Oximetry 96 Oxygen Delivery Method Room Air BMI result Body Mass Index 29.3 Const General: cooperative, no acute distress, alert and awake Nutritional Appearance: well nourished Orientation/consciousness: patient oriented x3 Limitations: no limitations [facility] Head: Yes normal to inspection and Yes atraumatic Ears: hearing grossly normal bilaterally and external ears normal General nose exam: Normal external nose present, no nasal discharge noted and no epistaxis Face and sinus: Yes normal facial exam, No abrasion and No laceration Mouth: Normal oral and palatal mucosa present, no drooling and no muffled voice Eyes General: appearance normal, both eyes and all related structures Periorbital: periorbital findings normal Eyelids: Yes eyelids normal Conjunctivae: conjunctivae normal Pupils: Equal, round and reactive pupils present EOM: EOMs intact bilaterally Neck Neck: Yes normal visual inspection, Yes full ROM and Yes no lymphadenopathy Chest Chest palpation & inspection: normal inspection of the chest Resp Effort & Inspection: normal respiratory effort and able to speak in complete sentences Auscultation: clear to auscultation bilaterally Cardio Rate: regular rate Rhythm: regular rhythm GI Inspection: Yes normal to inspection Palpation (GI): Soft to palpation, not firm, nontender, no guarding and not rigid Neuro General: patient oriented x3 and moves all extremities Cranial nerves: Yes Equal, round and reactive pupils present Cognition (Neuro): normal cognition Motor exam (neuro): 5/5 motor strength present throughout Sensory Exam: Normal double simultaneous stimulation for sensation Coordination: [id number] test normal Extrem Other: pain with anterior drawer test General: Yes normal to inspection, Yes full ROM and Yes capillary refill normal Psych Appearance: grossly normal Mental Status: mental status grossly normal Affect: normal affect Attitude: cooperative Thought process: Normal thought process present Thought content: Normal thought content present Insight: Good insight present (Psych) Procedures Orthopedic Splinting/Casting Injury #1: Side: right Lower Extremity Immobilizer: knee immobilizer Medical Decision Making Medical Decision Making MDM Narrative: Patient is a 57 year old assigned male at with no reported medical history presenting to the emergency department today with right knee pain. Patient's physical exam showed a positive right anterior drawer test. Patient's right knee x-ray showed no acute process. I explained my physical exam findings as well as all test results to the patient and the patient's caregiver. I answered all questions asked by the patient and the patient's caregiver. Patient's right knee was placed in an immobilzer, without incident. I stressed the importance of the patient taking his medication as prescribed. I stressed the importance of the patient following up with his primary care provider and an orthopedic provider. I stressed the importance of the patient returning to the emergency department immediately if his symptoms were to worsen or if he were to develop any dizziness, shortness of breath, difficulty breathing, chest pain, blurry vision, loss of vision, nausea, vomiting, abdominal pain, fever, chills, back pain, or any other complaints. Patient and the patient's caregiver verbalized agreement and understanding with this treatment plan and discharge. Differential Diagnosis Differential Diagnoses: The differential diagnosis associated with the presentation includes ACL injury, right knee pain Independent Interpretation I performed an independent interpretation of an: Plain X-Ray Interpretation: My interpretation is in agreement with the radiologist's impression of this imaging study. EXAMINATION: XR KNEE, RIGHT? CLINICAL INFORMATION: Right knee pain.? COMPARISON: None? TECHNIQUE: Four views of the right knee. FINDINGS: Bones and soft tissues are normal. No fracture or joint effusion. Alignment is anatomic. Joint spaces are well maintained. No abnormal soft tissue calcification.? XR/XR knee RT 4V IMPRESSION: Unremarkable right knee. Dictated By: Diogo Marcus MD Signed By: Electronically signed by Diogo Marcus MD 07/24/22 0187 Discharge Plan Discharge Clinical Impression: Acute knee pain Patient Disposition: Home, Self-Care Instructions: Crutch Instructions (ED), Knee Pain (ED) Additional Instructions: Follow up with your primary care provider and an orthopedic provider. Return to the emergency department immediately if your symptoms worsen or if you develop any dizziness, shortness of breath, difficulty breathing, chest pain, blurry vision, loss of vision, nausea, vomiting, abdominal pain, fever, chills, back pain, or any other complaints. Prescriptions: New acetaminophen 500 mg tablet 500 mg PO Q6H PRN (Reason: pain) Qty: 14 0RF ibuprofen 800 mg tablet 800 mg PO Q6H PRN (Reason: pain) Qty: 14 0RF Referrals: [facility] [Provider Group] (Call to establish and follow up with an orthopedic provider.) Lucien Morales MD [Primary Care Provider] - Interventions: ED Discharge Assessment Last Done: 07/24/22 11:55 Discharge Date/Time: 07/24/22 11:55 Print Language: [place]
== END 2022-07-24 11:55 | disposition home or self-care (01) ==
PROVIDERS: Emergency Provider Emergency Medicine Emergency Medical Services; PCP Internal Medicine Geriatric Medicine
DX: S89.91XA Unspecified injury of right lower leg, initial encounter (principal); X58.XXXA Exposure to other specified factors, initial encounter; Y93.9 Activity, unspecified; Y92.9 Unspecified place or not applicable; Y99.9 Unspecified external cause status
CPT/HCPCS: 29505; 73564; 99283; 99284

== ENCOUNTER 2022-08-27 16:14 | Outpatient (REF) | payer MEDICAID, SELFPAY ==
--- NOTE | ~2022-08-27 | US_ITS ---
EXAMINATION: US VENOUS ULTRASOUND WITH DOPPLER LOWER EXTREMITY, RIGHT CLINICAL INFORMATION: Edema COMPARISON: None available. TECHNIQUE: Ultrasound of the deep veins is performed from the hip to the calf with compression sonography and color and pulse Doppler assessment. Spectral analysis with color-flow imaging is performed. FINDINGS: Occlusive right lower extremity deep venous thrombus extending from the proximal femoral vein to the popliteal vein and into the posterior tibial veins of the calf. Mild right subcutaneous edema. The contralateral left common femoral vein demonstrates compressibility and normal respiratory variation. There are abnormally enlarged left inguinal nodes including a 2.2 x 1.3 x 1.9 cm rounded left inguinal node with loss of fatty hilum and a 3.1 x 1.1 x 1.3 cm irregular left inguinal node. US/US venous duplex LE RT IMPRESSION: 1. Occlusive right lower extremity deep venous thrombus extending from the proximal femoral vein to the popliteal vein and into the posterior tibial veins of the calf. 2. There are abnormally enlarged left inguinal nodes including a 2.2 cm rounded left inguinal node with loss of fatty hilum and a 3.1 cm irregular left inguinal node. Recommend further evaluation with contrast-enhanced CT abdomen pelvis. 3. Mild right subcutaneous edema. These critical results were discussed with ordering provider [facility] by telephone at 08/27/2022 5:25 PM and it was ascertained that the content and urgency of the report was understood at the time of direct communication.
== END 2022-08-27 16:15 | disposition home or self-care (01) ==
LOC: HO.US 16:14
PROVIDERS: Absent Provider Internal Medicine Geriatric Medicine; PCP Internal Medicine Geriatric Medicine; Visit Provider Registered Nurse
DX: R22.41 Localized swelling, mass and lump, right lower limb (principal)
CPT/HCPCS: 93971

== ENCOUNTER 2022-08-27 17:08 | Observation (INO) | payer MEDICAID, SELFPAY ==
--- NOTE | ~2022-08-27 | CT_ITS ---
EXAMINATION: CTA CHEST CT ABDOMEN AND PELVIS WITH CONTRAST CLINICAL INFORMATION: Lower extremity DVT. Concern for malignancy. COMPARISON: Chest x-ray 04/30/2017 TECHNIQUE: A noncontrast localizer was performed, followed by the administration of 85 mL Omnipaque [address] of the chest was then performed. Coronal and sagittal reformatted and 3-D technique MIP images of the chest were completed at the CT scanner and reviewed on the PACS workstation. No adverse effects were reported. Images were then performed through the abdomen and pelvis. Coronal and sagittal reformatted images performed at CT scanner by technologist. [This CT examination was performed using dose optimization techniques as appropriate, variously including the following: *Automated exposure control *Adjustment of mA and/or kV according to patient size (this includes techniques or standardized protocols for targeted exams where dose is matched to indication/reason for exam; i.e. extremities or head) *Use of iterative reconstruction technique] DLP: 915 mGy-cm. FINDINGS: CTA CHEST Vascular: The main pulmonary artery, secondary and tertiary branches of the pulmonary artery are normally opacified with no evidence of pulmonary embolism. The aorta and great vessels are unremarkable. Mediastinum: No mediastinal mass. No significant lymphadenopathy. There is no pericardial effusion. CORONARY ARTERIES: Volume of coronary calcification:None Lungs: The lungs are clear. No nodule or infiltrate. Central bronchial airways open. Fluid: There is no pericardial effusion. There is no pleural effusion. Axilla: No significant lymphadenopathy. CT SCAN ABDOMEN/PELVIS: Liver, Gallbladder and Biliary Tree: The liver is normal in size, shape, and attenuation. No focal hepatic lesion or biliary ductal dilatation is present. The gallbladder is unremarkable with no evidence of radiopaque gallstones, gallbladder wall thickening, or obvious pericholecystic inflammatory changes. Pancreas: There is fatty atrophy of the pancreas. There is edema and fluid surrounding the pancreatic head and uncinate process consistent with a mild to moderate pancreatitis. No pancreatic duct dilatation. No pancreatic calcification. Spleen: Unremarkable. Adrenal Glands: Unremarkable. Kidneys and Ureters: The kidneys are normal in size, shape, and attenuation. No hydronephrosis, hydroureter, or calculi seen. No perinephric stranding. Bladder: Unremarkable. Gastrointestinal Tract: The small and large bowel are unremarkable. The appendix is unremarkable. Abdominal Wall: No significant hernia is appreciated. Lymph Nodes: Normal. Vascular: Unremarkable. Pelvic Viscera: Unremarkable. Osseous Structures: Multilevel degenerative spondylosis of the spine. No acute osseous abnormality. CT/CT abdomen pelvis w IV con IMPRESSION: 1. No evidence of pulmonary embolism. No acute change of chest. 2. CT scan abdomen pelvis: Edema and fluid surrounding the pancreatic head and uncinate process consistent with a mild to moderate pancreatitis.
[2022-08-27 17:38] LABS: MANUAL DIFF FLAG NO
[2022-08-27 17:39] LABS: Basophils Absolute Auto 0.1 X10*3/uL (0.0-0.2); Hematocrit 37.3 % (42.0-52.0); Hemoglobin 11.9 g/dl (14.0-18.0); Imm Gran Abs Auto 0.02 X10*3/uL (0.00-0.03); Imm Gran Pct Auto 0.3 % (0.0-0.4); Lymphocytes Absolute Auto 2.5 X10*3/uL (1.2-4.9); Mean Corpuscular HGB Conc 31.9 g/dl (31.0-36.0); Mean Corpuscular Hemoglobin 28.7 pg (27.0-33.0); Mean Corpuscular Volume 89.9 fL (80.0-98.0); Mean Platelet Volume 9.9 fL (9.4-12.4); Monocytes Absolute Auto 0.4 X10*3/uL (0.1-1.2); Monocytes Percent Auto 5.4 % (2-11); Neutrophils Absolute Auto 4.2 x10*3/uL (2.0-8.3); Neutrophils Percent Auto 58.3 % (45-73); Platelet Count 229 X10*3/uL (160-400); Red Blood Count 4.15 X10*6/uL (4.60-5.80); Red Cell Distribution Width 13.3 % (11.0-16.0); White Blood Count 7.2 X10*3/uL (4.8-10.8)
[2022-08-27 17:47] VITALS: BP 148/92; PULSE 92; RESP 20; TEMP 36.9; O2SAT 98; BMI 28.7
[2022-08-27 17:47] LABS: Prothrombin Time 11.2 SEC (10.0-13.1)
[2022-08-27 17:49] LABS: Partial Thromboplastin Time 38.6 SEC (26.0-36.4)
[2022-08-27 18:00] LABS: Alanine Aminotransferase 18 U/L (0-40); Albumin Level 3.7 g/dL (3.5-5.0); Alkaline Phosphatase 131 U/L (39-117); Anion Gap 14 (12-20); Aspartate Amino Transferase 20 U/L (5-37); Bilirubin Direct < 0.2 mg/dL (0.0-0.5); Bilirubin Total 0.5 mg/dL (0.0-1.0); Blood Urea Nitrogen 8 mg/dL (9-16); Calcium 8.8 mg/dL (8.4-10.2); Carbon Dioxide 27 mmol/L (22-29); Chloride 106 mmol/L (96-108); Creatinine Clr Calc Pharmacy 116.7; Estimated Glomerular Filt Rate > 60; Glucose Random 107 mg/dL (60-115); Magnesium 1.8 mg/dL (1.6-2.6); Potassium 4.5 mmol/L (3.3-5.1); Sodium 142 mmol/L (135-145); Total Protein 6.4 g/dL (6.5-8.0)
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
[2022-08-27] MEDS: Enoxaparin Sodium 100 MG/ML SYRINGE 90 MG SUBCUT (20:33)
[2022-08-27] MEDS: iohexoL 350 MG/ML 100 ML INFUS..BTL IV (21:27)
[2022-08-27 21:54] VITALS: BP 128/83; PULSE 86; RESP 17; TEMP 36.9; O2SAT 98
[2022-08-27 22:23] LABS: COVID-19 Test Negative (Negative); IDNOW Serial# 55D5AD1C
--- NOTE | 2022-08-27 23:05 | PM.IMHP ---
History of Present Illness Date of Service: 08/27/22 Chief Complaint: Leg swelling 57-year-old male with past medical history of intellectual disability, GERD, diabetes, daily smoker, presents to the hospital with complaints of right lower extremity swelling that is been going on for the past 3-4 weeks. Reports the leg has progressively worsened in swelling, not painful, no recent injury or trauma. No recent immobility. Patient denies any chest pain, no shortness of breast, no palpitations, no fever chills, no abdominal pain nausea or vomiting, no diarrhea constipation, no urinary symptoms. States being hungry and he is wants to eat. On arrival to the ED patient hemodynamically stable no significant abnormal vitals Labs are significant for WBC count of 7.2, labs otherwise unremarkable, Venous duplex shows occlusive right lower extremity deep venous thrombus extending from the proximal femoral vein to the popliteal vein and into the posterior tibial veins of the calf There is also abnormally enlarged left inguinal nodes including a 2.2 cm rounded left inguinal node with loss of fatty hilum and a 3.1 cm irregular left inguinal node. This was discussed with vascular surgery who recommended CT angiogram of the abdomen pelvic, as well as chest, as well as starting on Lovenox and admitting for further evaluation Review of Systems Review of Systems: Yes all other systems are reviewed and are negative [facility] Medical History (Updated 08/27/22 @ 23:34 by CLAIRE Gregorio) Intellectual disability Social History Advance Directives: No Advance Directives Information Provided: Yes Meds Allergies Allergy/AdvReac Type Severity Reaction Status Date / Time No Known Allergies Allergy Mild NONE Verified 12/11/21 11:25 Home Medications Medication Instructions Recorded Confirmed Last Taken Type aspirin 81 mg tablet,delayed 81 mg PO DAILY 08/27/22 08/27/22 Unknown History release atorvastatin 20 mg tablet 20 mg PO DAILY 08/27/22 08/27/22 Unknown History clonazepam 1 mg tablet 1 mg PO BID 08/27/22 08/27/22 Unknown History clozapine 100 mg tablet See Rx Instructions .Route .COMPLEX 08/27/22 08/27/22 Unknown History docusate sodium 100 mg capsule 100 mg PO DAILY PRN Constipation 08/27/22 08/27/22 Unknown History metformin 850 mg tablet 850 mg PO BID 08/27/22 08/27/22 Unknown History montelukast 10 mg tablet 10 mg PO QPM 08/27/22 08/27/22 Unknown History omeprazole 20 mg capsule,delayed 20 mg PO DAILY 08/27/22 08/27/22 Unknown History release Physical Exam Vital Signs and Narrative: Vital Signs: Last Vital Signs Temp 98.4 F 08/27/22 21:54 Pulse 86 08/27/22 21:54 Resp 17 08/27/22 21:54 BP 128/83 08/27/22 21:54 Pulse Ox 98 08/27/22 21:54 O2 Del Method Room Air 08/27/22 21:54 BMI result Body Mass Index 28.7 Const: Other: Patient is alert and oriented to self and place Answers questions appropriately General: cooperative and no acute distress Eyes: General: appearance normal, both eyes and all related structures Resp: Effort & Inspection: normal respiratory effort Auscultation: clear to auscultation bilaterally Cardio: Rate: regular rate Rhythm: regular rhythm GI: Palpation (GI): Soft to palpation Auscultation: normal bowel sounds Skin: General skin exam: no rashes or lesions noted Neuro: Cognition (Neuro): normal cognition Extrem: Other: Right lower extremity swelling of to the thigh area, no tenderness erythema General: Yes edema Results Labs 08/27/22 17:31 08/27/22 17:31 Labs: Laboratory Results - last 24 hr 08/27/22 08/27/22 08/27/22 17:31 17:31 17:31 MCV 89.9 MCH 28.7 MCHC 31.9 RDW 13.3 Plt Count 229 MPV 9.9 Immature Gran % (Auto) 0.3 Neut % (Auto) 58.3 Lymph % (Auto) 35.0 [place] % (Auto) 5.4 Eos % (Auto) 0.0 Baso % (Auto) 1.0 Lymph # (Auto) 2.5 [place] # (Auto) 0.4 Eos # (Auto) 0.0 Baso # (Auto) 0.1 Abs Immat Gran (auto) 0.02 Absolute Neuts (auto) 4.2 Absolute Nucleated RBC 0.000 Nucleated RBC % (auto) 0.0 PT 11.2 INR 1.0 APTT 38.6 H Anion Gap 14 Estim Creat Clear Calc 116.7 Estimated GFR > 60 Random Glucose 107 Calcium 8.8 Magnesium 1.8 Total Bilirubin 0.5 Direct Bilirubin < 0.2 AST 20 ALT 18 Alkaline Phosphatase 131 H Total Protein 6.4 L Albumin 3.7 COVID-19 (MARY) COVID-19 Clin Com 08/27/22 22:00 MCV MCH MCHC RDW Plt Count MPV Immature Gran % (Auto) Neut % (Auto) Lymph % (Auto) [place] % (Auto) Eos % (Auto) Baso % (Auto) Lymph # (Auto) [place] # (Auto) Eos # (Auto) Baso # (Auto) Abs Immat Gran (auto) Absolute Neuts (auto) Absolute Nucleated RBC Nucleated RBC % (auto) PT INR APTT Anion Gap Estim Creat Clear Calc Estimated GFR Random Glucose Calcium Magnesium Total Bilirubin Direct Bilirubin AST ALT Alkaline Phosphatase Total Protein Albumin COVID-19 (MARY) Negative COVID-19 Clin Com See Note Assessment and Plan (1) Acute DVT (deep venous thrombosis): Status: Acute (2) Enlarged lymph nodes: Status: Acute Plan 57-year-old male with past medical history of intellectual disability, presents with right leg swelling found to have extensive DVT # DVT right lower extremity acute - no evidence of PE - hemodynamically stable - vascular surgery wants patient to be treated with Lovenox given the extensive thrombus and further workup for underlying etiology including abdominal pelvic CT -will start patient on Lovenox 1 mg b.i.d. - monitor respiratory status # enlarged lymph nodes - venous duplex showed enlarged lymph nodes - no evidence of acute malignancy in the abdomen CT nor chest CT - will need further follow-up outpatient possible biopsy # diabetes - hold metformin - low-dose sliding scale insulin - diabetic diet # continue home medications DVT prophylaxis: Lovenox Time Spent With Patient Time: Total time managing care of this patient today ____ minutes. Quality Stroke Does the patient have a stroke diagnosis?: No VTE Prior VTE?: No VTE Risk Level:: Medical - moderate - high VTE Device Contraindication: Treatment Not Indicated VTE Drug Contraindication: N/A - Med Ordered
[2022-08-27 23:50] LABS: Lipase 40 U/L (8-78)
[2022-08-28 00:27] VITALS: BP 116/77; PULSE 78; RESP 20; O2SAT 97
[2022-08-28] MEDS: Montelukast Sodium 10 MG TABLET PO (00:49)
[2022-08-28] MEDS: clonazePAM 1 MG TABLET PO ×2 (00:49→08:07)
[2022-08-28] MEDS: cloZAPine 100 MG TABLET 500 MG PO (00:58)
[2022-08-28 02:48] VITALS: BP 128/80; PULSE 90; RESP 15; TEMP 36.7; O2SAT 95
[2022-08-28 03:19] LABS: Glucose, Whole Blood 91 mg/dL (60-115)
--- NOTE | 2022-08-28 03:58 | MHC.EDTECH ---
pt came over from [facility], pt saying he doesnt need to be here that in the morning he wants breakfast and to see the doctor so he can be discharged, i said ok, vitals were taken a urinal was given and a pitcher of water, he is resting
[2022-08-28 06:12] LABS: Alanine Aminotransferase 17 U/L (0-40); Albumin Level 3.3 g/dL (3.5-5.0); Alkaline Phosphatase 123 U/L (39-117); Anion Gap 12 (12-20); Aspartate Amino Transferase 17 U/L (5-37); Bilirubin Total 0.4 mg/dL (0.0-1.0); Blood Urea Nitrogen 11 mg/dL (9-16); Calcium 8.6 mg/dL (8.4-10.2); Carbon Dioxide 25 mmol/L (22-29); Chloride 109 mmol/L (96-108); Estimated Glomerular Filt Rate > 60; Glucose Random 92 mg/dL (60-115); Potassium 4.1 mmol/L (3.3-5.1); Sodium 142 mmol/L (135-145); Total Protein 5.9 g/dL (6.5-8.0)
[2022-08-28 06:13] LABS: Prothrombin Time 11.9 SEC (10.0-13.1)
--- NOTE | 2022-08-28 06:17 | MHC.EDTECH ---
pt is resting still inquiring about his breakfast and the doctor so he can leave
[2022-08-28 07:10] LABS: Glucose, Whole Blood 104 mg/dL (60-115)
--- NOTE | 2022-08-28 07:38 | PHA.MEDREC ---
Addendum entered by Gretchen Cruz [facility] 08/28/22 07:55: Patient got last dose of Clozaril yesterday morning, spoke to dee with [facility]. Original Note: Pharmacy Consult ? Medication Reconciliation Pharmacy has reviewed the medication reconciliation completed by Kaur. Destiney Finn, KarleneD
[2022-08-28] MEDS: Atorvastatin Calcium 20 MG TABLET PO (08:06)
[2022-08-28] MEDS: Omeprazole 20 MG CAPSULE.DR PO (08:07)
[2022-08-28] MEDS: Aspirin Enteric Coated 81 MG TABLET.DR PO (08:07)
[2022-08-28] MEDS: 0.9 % Sodium Chloride Flush 3 ML SYRINGE IVFLUSH (08:08)
[2022-08-28] MEDS: cloZAPine 100 MG TABLET 200 MG PO (08:17)
[2022-08-28] MEDS: Nicotine 14 MG PATCH.TD24 TRANSDERMA (08:17)
[2022-08-28 08:34] VITALS: BP 136/72; PULSE 83; RESP 20; TEMP 36.6; O2SAT 96
[2022-08-28] MEDS: Enoxaparin Sodium 100 MG/ML SYRINGE 90 MG SUBCUT (09:47)
[2022-08-28 10:01] VITALS: BMI 28.6
[2022-08-28 10:04] VITALS: BMI 28.6
--- NOTE | 2022-08-28 10:40 | MHC.CM.PN ---
Addendum entered by Alexandra Padilla 08/28/22 15:03: Pt medically cleared for D/C home, no services, [facility] will continue to follow pt in the community. [facility] will transport pt home. Original Note: MARTINEZ delivered 08/28. Pt arrived to ED with concern for DVT. Pt lives in apt alone, followed by [facility]. Pt eager to return home. [facility] Mariano and nurse Teresa updated by this CM and are aware of D/C plan. Pt to D/C today with elikay (coupon given to pt). [facility] to transport pt back to his apt. No HCP, pt declined. PCP: Lucien Name Vax: rudi x 1, pfizer x 1
--- NOTE | 2022-08-28 10:49 | P.CONGS_ITS ---
History of Present Illness Consult details Consult date: 08/28/22 Reason for consult: other (DVT) Narrative: Pleasant 57-year-old gentleman presents to the hospital with acute swelling of the right lower extremity. He reports that this had been actually going on for few weeks. He attributes the swelling toe fall. At the current time he denies any pain discomfort and in general feels fairly well. He is anxious to go home. He has been maintained on anticoagulation since his admission. Reports no discomfort no shortness of breath peer Review of Systems Review of Systems: Yes all other systems are reviewed and are negative Constitutional: Constitutional: Reports no additional constitutional complaints ENT: Reports Normal hearing present Cardiovascular: Cardiovascular: Denies chest pain, Denies chest pain at rest, Denies chest pain with activity and Denies pedal edema Respiratory: Respiratory: Denies cough Gastrointestinal: Gastrointestinal: Denies abdominal pain Musculoskeletal: Musculoskeletal: Denies abnormal gait, Denies muscle cramps and Denies radiating pain into limb Integumentary/Breasts: Skin/Breast: Denies skin ulcer and Denies wounds Neurologic: Reports Normal hearing present and Denies abnormal gait Psychiatric: Psychiatric: Reports no additional psychiatric complaints [facility] Past Medical History Medical History (Updated 08/27/22 @ 23:34 by CLAIRE Gregorio) Intellectual disability Social History Social History Household Members: None Housing: Apartment Do you presently have visiting nurse or other home services: No Patient Tobacco Use Status: Current someday Tobacco user Tobacco use type: Cigarette Smoked in Last 30 Days: Yes e-Cigarette/Vaping Use: Currently Using Patient Interested in Nicotine Replacement: Yes Patient Given Instructions on How to Stop Smoking: Yes Date Education Initiated: 08/28/22 Second Hand Smoke Exposure: Yes Use of substances other than those prescribed or required for medical reasons: No Currently Displaying Signs/Symptoms of Drug Intoxication Withdrawal: No Any prior treatment program specific to substance use: No Have you been hit, kicked, punched, or otherwise hurt by someone within the past year? If so, by whom?: No Do you feel safe in your current relationship?: Yes Is there a partner from a previous relationship who is making you feel unsafe now?: No Are you made to feel afraid or neglected: No Advance Directives: No Advance Directives Information Provided: Yes Do you have thoughts of harming others: None Do you have a plan to hurt others: No Plan Recently lost weight without trying: No Eating poorly because of decreased appetite: No Nutrition Risks: No Nutritional Risk Poor oral hygiene: No service: No Current occupational status: disabled Meds Allergies Allergy/AdvReac Type Severity Reaction Status Date / Time No Known Allergies Allergy Mild NONE Verified 12/11/21 11:25 Active Medications: Current Medications Acetaminophen (Acetaminophen 325 Mg Tablet) 650 mg PO Q6H PRN PRN Reason: Pain, Mild (Pain Scale 1-3) Aspirin (Aspirin Enteric Coated 81 Mg Tablet.) 81 mg PO DAILY [facility] Last Admin: 08/28/22 08:07 Dose: 81 mg Atorvastatin Calcium (Atorvastatin Calcium 20 Mg Tablet) 20 mg PO DAILY [facility] Last Admin: 08/28/22 08:06 Dose: 20 mg Clonazepam (Clonazepam 1 Mg Tablet) 1 mg PO BID [facility] Last Admin: 08/28/22 08:07 Dose: 1 mg Clozapine (Clozapine 100 Mg Tablet) 200 mg PO DAILY [facility] Last Admin: 08/28/22 08:17 Dose: 200 mg Clozapine (Clozapine 100 Mg Tablet) 500 mg PO BEDTIME [facility] Docusate Sodium (Docusate Sodium 100 Mg Capsule) 100 mg PO DAILY PRN PRN Reason: Constipation Docusate Sodium (Docusate Sodium 100 Mg Capsule) 100 mg PO DAILY PRN PRN Reason: Constipation Enoxaparin Sodium (Enoxaparin Sodium 100 Mg/Ml Syringe) 90 mg 1 mg/kg (90 mg) SUBCUT Q12H [facility] Last Admin: 08/28/22 09:47 Dose: 90 mg Glucose (Glucose Gel 15 Gm Gel..Gram.) 15 gm PO Q15M PRN; Protocol PRN Reason: per Hypoglycemia Standing Ord. Dextrose (D10) 250 mls @ 750 mls/hr IV Q15M PRN; Protocol PRN Reason: per Hypoglycemia Standing Ord. Insulin Human Lispro (Insulin Lispro 100 Unit/Ml 3 Ml Vial) 0.1 - 10 unit SUBCUT QIDACHS [facility]; Protocol Last Admin: 08/28/22 07:34 Dose: Not Given Montelukast Sodium (Montelukast Sodium 10 Mg Tablet) 10 mg PO BEDTIME [facility] Last Admin: 08/28/22 00:49 Dose: 10 mg Nicotine (Nicotine 14 Mg Patch.Td24) 14 mg TRANSDERMA DAILY [facility] Last Admin: 08/28/22 08:17 Dose: 14 mg Omeprazole (Omeprazole 20 Mg Capsule.) 20 mg PO DAILY [facility] Last Admin: 08/28/22 08:07 Dose: 20 mg Ondansetron HCl (Ondansetron Hcl 4 Mg/2 Ml Vial) 4 mg IVPUSH Q8H PRN PRN Reason: Nausea and Vomiting Pharmacy Consult (Consult Rx Perform Med Rec) 1 each MISCELLANE ONCE PRN PRN Reason: Consult order Sodium Chloride (0.9 % Sodium Chloride Flush 3 Ml Syringe) 3 ml IVFLUSH QSHIFT [facility] Last Admin: 08/28/22 08:08 Dose: 3 ml Home Medications Medication Instructions Recorded Confirmed Last Taken Type aspirin 81 mg tablet,delayed 81 mg PO DAILY 08/27/22 08/27/22 Unknown History release atorvastatin 20 mg tablet 20 mg PO DAILY 08/27/22 08/27/22 Unknown History clonazepam 1 mg tablet 1 mg PO BID 08/27/22 08/27/22 Unknown History clozapine 100 mg tablet See Rx Instructions .Route .COMPLEX 08/27/22 08/27/22 Unknown History docusate sodium 100 mg capsule 100 mg PO DAILY PRN Constipation 08/27/22 08/27/22 Unknown History metformin 850 mg tablet 850 mg PO BID 08/27/22 08/27/22 Unknown History montelukast 10 mg tablet 10 mg PO QPM 08/27/22 08/27/22 Unknown History omeprazole 20 mg capsule,delayed 20 mg PO DAILY 08/27/22 08/27/22 Unknown History release Physical Exam Vital Signs: Vital Signs: Last Vital Signs Temp 98 F 08/28/22 08:34 Pulse 83 08/28/22 08:34 Resp 20 08/28/22 08:34 BP 136/72 08/28/22 08:34 Pulse Ox 96 08/28/22 08:34 O2 Del Method Room Air 08/28/22 08:34 BMI result Body Mass Index 28.6 Const: General: cooperative, healthy appearing and comfortable Orientation/consciousness: oriented to person, oriented to place and oriented to time HEENT: Head: Yes normal to inspection Neck: Neck: Yes normal visual inspection Carotids: no bruits Chest: Chest palpation & inspection: normal inspection of the chest Resp: Effort & Inspection: normal respiratory effort and able to speak in complete sentences Auscultation: clear to auscultation bilaterally, no crackles, no rales, no rhonchi and no wheezes Cardio: Rate: regular rate Rhythm: regular rhythm Heart sounds: S1 normal heart sound present and S2 normal heart sound present Bruits: no carotid bruits Peripheral pulses: Peripheral pulses 2+ throughout GI: Inspection: Yes normal to inspection Skin: Wounds: no wounds Hair: normal Neuro: General: oriented to person, oriented to place and oriented to time Cranial nerves: Yes CN's II-XII intact bilaterally and Yes Normal hearing present Cognition (Neuro): normal cognition Motor exam (neuro): 5/5 motor strength present throughout Extrem: Other: venous exam: +1 edema of the right lower extremity General: No clubbing, No cyanosis and Yes edema Psych: Appearance: grossly normal Mental Status: mental status grossly normal Speech and movement: Normal speech and movement present Results Labs 08/27/22 17:31 08/28/22 05:46 Labs: Abnormal lab results 08/27/22 08/27/22 08/27/22 Range/Units 17:31 17:31 17:31 RBC 4.15 L (4.60-5.80) X10*6/uL Hgb 11.9 L (14.0-18.0) g/dl Hct 37.3 L (42.0-52.0) % APTT 38.6 H (26.0-36.4) SEC Chloride (96-108) mmol/L BUN 8 L (9-16) mg/dL Alkaline Phosphatase 131 H (39-117) U/L Total Protein 6.4 L (6.5-8.0) g/dL Albumin (3.5-5.0) g/dL 08/28/22 Range/Units 05:46 RBC (4.60-5.80) X10*6/uL Hgb (14.0-18.0) g/dl Hct (42.0-52.0) % APTT (26.0-36.4) SEC Chloride 109 H (96-108) mmol/L BUN (9-16) mg/dL Alkaline Phosphatase 123 H (39-117) U/L Total Protein 5.9 L (6.5-8.0) g/dL Albumin 3.3 L (3.5-5.0) g/dL Short CBC 08/27/22 Range/Units 17:31 WBC 7.2 (4.8-10.8) X10*3/uL Hgb 11.9 L (14.0-18.0) g/dl Hct 37.3 L (42.0-52.0) % Plt Count 229 (160-400) X10*3/uL BMP 08/27/22 08/28/22 17:31 05:46 Sodium 142 142 Potassium 4.5 4.1 Chloride 106 109 H Carbon Dioxide 27 25 BUN 8 L 11 Creatinine 0.81 0.75 Calcium 8.8 8.6 Liver Function 08/27/22 08/28/22 Range/Units 17:31 05:46 Total Bilirubin 0.5 0.4 (0.0-1.0) mg/dL Direct Bilirubin < 0.2 (0.0-0.5) mg/dL AST 20 17 (5-37) U/L ALT 18 17 (0-40) U/L Alkaline Phosphatase 131 H 123 H (39-117) U/L Albumin 3.7 3.3 L (3.5-5.0) g/dL All other labs normal. Imaging Additional studies: Venous ultrasound of the right lower extremity demonstrates DVT from the femoral on down to the popliteal with some concern of tibial vein clot. Assessment and Plan (1) Acute DVT (deep venous thrombosis): Status: Acute Plan In short patient has new onset DVT. Unclear etiology of this. I would recommend formal anticoagulation. I do not believe this is occlusive and does not have an iliofemoral component to this. In addition he was not on anticoagulation at the time of clot. He is currently asymptomatic from this. I would recommend formal anticoagulation with no intervention at this time. We did discuss the importance of staying on his anticoagulants and the importance of ambulation. He can follow up with us on an as-needed basis. He does not require office follow-up with us. Thank you for allowing us to assist in his care. If there are any questions or concerns please do not hesitate to contact us. Time Spent With Patient Time: Total time managing care of this patient today ____ minutes. Procedures Date of Service Date of Service: 08/28/22
[2022-08-28 11:56] LABS: Glucose, Whole Blood 120 mg/dL (60-115)
--- NOTE | 2022-08-28 15:35 | PM.DS ---
DS: Providers Provider Date of Service: 08/28/22 Date of admission: 08/27/22 22:56 Primary care physician: Lucien Morales MD Consults: 08/28/22 07:40 Consult to Vascular Surgery Routine Consulting Provider: Sammy Cota Reason for consultation: extensive dvt DS: Diagnosis Discharge Diagnosis (1) Acute DVT (deep venous thrombosis): Status: Acute DS: Summary Hospital Course Hospital Course: Date of Service: 08/27/22 Chief Complaint: Leg swelling 57-year-old male with past medical history of intellectual disability,? GERD, diabetes, daily smoker, presents to the hospital with complaints of right lower extremity swelling that is been going on for the past 3-4 weeks.? Reports the leg has progressively worsened in swelling, not painful, no recent injury or trauma.? No recent immobility.? Patient denies any chest pain, no shortness of breast, no palpitations, no fever chills, no abdominal pain nausea or vomiting, no diarrhea constipation, no urinary symptoms.? States being hungry and he is wants to eat.? On arrival to the ED patient hemodynamically stable no significant abnormal vitals Labs are significant for WBC count of 7.2, labs otherwise unremarkable, Venous duplex shows occlusive right lower extremity deep venous thrombus extending from the proximal femoral vein to the popliteal vein and into the posterior tibial veins of the calf There is also abnormally enlarged left inguinal nodes including a 2.2 cm rounded left inguinal node with loss of fatty hilum and a 3.1 cm irregular left inguinal node. ?This was discussed with vascular surgery who recommended CT angiogram of the abdomen pelvic, as well as chest, as well as starting on Lovenox and admitting for further evaluation 57-year-old male with past medical history of intellectual disability, presents with right leg swelling found to have extensive DVT # admitted to medical floor with a diagnosis of DVT right lower extremity new onset of unclear etiology, no evidence of PE, hemodynamically stable on arrival, initially treated with Lovenox due to extensive thrombus, subsequently seen by vascular surgery Dr. Cota he did not recommend any acute intervention recommended oral anticoagulation , since patient denies any discomfort feeling better denies shortness of breath, no chest pain Will discharge him home with strong recommendation to follow-up with PCP-recommended complete abstinence from smoking # enlarged lymph nodes - venous duplex showed enlarged left inguinal lymph nodes, no evidence of acute malignancy in the abdomen CT, nor chest CT recommend outpatient follow-up with primary care physician with repeat imaging studies biopsy if needed # diabetes continue home medication and diabetic diet Time Spent with Patient Time attestation: Total time managing care of this patient today ____ minutes. Discharge coordination time: Greater than 30 minutes Quality: Safe Use of Opioids Does Pt have an Active Cancer Diagnosis on the Problem List?: No Quality: Stroke Does the patient have a stroke diagnosis?: No Physical Exam Vital Signs: Vital Signs: Last Vital Signs Temp 98 F 08/28/22 08:34 Pulse 83 08/28/22 08:34 Resp 20 08/28/22 08:34 BP 136/72 08/28/22 08:34 Pulse Ox 96 08/28/22 08:34 O2 Del Method Room Air 08/28/22 08:34 BMI result Body Mass Index 28.6 Const: Other: General awake alert, in no acute distress. Neck supple, no JVD. CVS regular rate rhythm, Respiratory lungs clear to auscultation, no respiratory distress, no wheeze, no rhonchi. Gastrointestinal abdomen soft, nontender, bowel sounds audible, no no guarding , no rigidity. Extremities right lower extremity edema. Neuro nonfocal Skin no rash DS: Data Data Completed and Pending Labs on day of discharge: Laboratory Results - last 24 hr 08/27/22 08/27/22 08/27/22 17:31 17:31 17:31 WBC 7.2 RBC 4.15 L Hgb 11.9 L Hct 37.3 L MCV 89.9 MCH 28.7 MCHC 31.9 RDW 13.3 Plt Count 229 MPV 9.9 Immature Gran % (Auto) 0.3 Neut % (Auto) 58.3 Lymph % (Auto) 35.0 [place] % (Auto) 5.4 Eos % (Auto) 0.0 Baso % (Auto) 1.0 Lymph # (Auto) 2.5 [place] # (Auto) 0.4 Eos # (Auto) 0.0 Baso # (Auto) 0.1 Abs Immat Gran (auto) 0.02 Absolute Neuts (auto) 4.2 Absolute Nucleated RBC 0.000 Nucleated RBC % (auto) 0.0 PT 11.2 INR 1.0 APTT 38.6 H Sodium 142 Potassium 4.5 Chloride 106 Carbon Dioxide 27 Anion Gap 14 BUN 8 L Creatinine 0.81 Estim Creat Clear Calc 116.7 Estimated GFR > 60 POC Glucose Random Glucose 107 Calcium 8.8 Magnesium 1.8 Total Bilirubin 0.5 Direct Bilirubin < 0.2 AST 20 ALT 18 Alkaline Phosphatase 131 H Total Protein 6.4 L Albumin 3.7 Lipase 40 COVID-19 ([facility]) COVID-19 [employer] 08/27/22 08/28/22 08/28/22 22:00 03:15 05:46 WBC RBC Hgb Hct MCV MCH MCHC RDW Plt Count MPV Immature Gran % (Auto) Neut % (Auto) Lymph % (Auto) [place] % (Auto) Eos % (Auto) Baso % (Auto) Lymph # (Auto) [place] # (Auto) Eos # (Auto) Baso # (Auto) Abs Immat Gran (auto) Absolute Neuts (auto) Absolute Nucleated RBC Nucleated RBC % (auto) PT 11.9 INR 1.0 APTT Sodium Potassium Chloride Carbon Dioxide Anion Gap BUN Creatinine Estim Creat Clear Calc Estimated GFR POC Glucose 91 Random Glucose Calcium Magnesium Total Bilirubin Direct Bilirubin AST ALT Alkaline Phosphatase Total Protein Albumin Lipase COVID-19 ([facility]) Negative COVID-19 [employer] See Note 08/28/22 08/28/22 08/28/22 05:46 07:04 11:35 WBC RBC Hgb Hct MCV MCH MCHC RDW Plt Count MPV Immature Gran % (Auto) Neut % (Auto) Lymph % (Auto) [place] % (Auto) Eos % (Auto) Baso % (Auto) Lymph # (Auto) [place] # (Auto) Eos # (Auto) Baso # (Auto) Abs Immat Gran (auto) Absolute Neuts (auto) Absolute Nucleated RBC Nucleated RBC % (auto) PT INR APTT Sodium 142 Potassium 4.1 Chloride 109 H Carbon Dioxide 25 Anion Gap 12 BUN 11 Creatinine 0.75 Estim Creat Clear Calc 126.0 Estimated GFR > 60 POC Glucose 104 120 H Random Glucose 92 Calcium 8.6 Magnesium Total Bilirubin 0.4 Direct Bilirubin AST 17 ALT 17 Alkaline Phosphatase 123 H Total Protein 5.9 L Albumin 3.3 L Lipase COVID-19 ([facility]) COVID-19 Clin Com Discharge Plan Discharge Patient Disposition: Home, Self-Care Discharge Diagnosis: Acute right lower extremity DVT Enlarged left inguinal lymph nodes Referrals: Name,MD Lucien [Primary Care Provider] - 1 Week Discharge Medications: New nicotine 14 mg/24 hr Patch 24 Hour 14 mg transdermal DAILY Qty: 30 0RF Eliquis 5 mg tablet 5 mg PO BID Qty: 60 0RF Rx Instructions: Take Eliquis 5 mg 2 tablets twice daily for 7 days Then take Eliquis 5 mg 1 tablet twice daily. Continued acetaminophen 500 mg tablet 500 mg PO Q6H PRN (Reason: pain) Qty: 14 0RF atorvastatin 20 mg tablet 20 mg PO DAILY clozapine 100 mg tablet See Rx Instructions .ROUTE .COMPLEX Rx Instructions: take two (2) tablets by mouth every morning and take five (5) tablets by mouth at bedtime. clonazepam 1 mg tablet 1 mg PO BID docusate sodium 100 mg capsule 100 mg PO DAILY PRN (Reason: Constipation) omeprazole 20 mg capsule,delayed release(DR/EC) 20 mg PO DAILY montelukast 10 mg tablet 10 mg PO QPM Held metformin 850 mg tablet 850 mg PO BID Hold Instructions: Resume on 08/30/22. Discontinued ibuprofen 800 mg tablet 800 mg PO Q6H PRN (Reason: pain) Qty: 14 0RF aspirin 81 mg tablet,delayed release (DR/EC) 81 mg PO DAILY Discharge Orders: Discharge Order (Routine); Ordered 08/28/22 Ordered By: Edmar Ventura Diet: Low fat, low cholesterol Activity on Discharge: As tolerated Stand Alone Forms: Patient Portal Discharge page Care Plan Goals: Left inguinal lymph nodes, recommend full follow-up with PCP, CTA chest and CT abdomen and pelvis showed no abnormality Take Eliquis 5 mg 2 tablets twice daily for 7 days followed by Eliquis 5 mg 1 tablet twice daily Strongly recommend to abstain from smoking use nicotine patch Activity as tolerated Return to check with worsening swelling shortness of breath lightheadedness or dizziness Health Concerns: Take all home medications ,stop aspirin Plan of Treatment: Follow-up with primary care physician call for appointment in next 1-2 weeks Assessment: As above Discharge Date/Time: 08/28/22 14:00
== END 2022-08-28 14:00 | disposition home or self-care (01) ==
LOC: HO.ED 22:23 → HO.EDOVER 23:40 → HO.IMC 08-28 07:27
PROVIDERS: Physician Assistant; Admitting Provider Internal Medicine; Emergency Provider Emergency Medicine; PCP Internal Medicine Geriatric Medicine; Visit Provider Hospitalist
DX: I82.401 Acute embolism and thrombosis of unspecified deep veins of right lower extremity (principal); R59.9 Enlarged lymph nodes, unspecified; I10 Essential (primary) hypertension; E11.9 Type 2 diabetes mellitus without complications; F17.200 Nicotine dependence, unspecified, uncomplicated; F79 Unspecified intellectual disabilities; Z20.822 Contact with and (suspected) exposure to COVID-19
CPT/HCPCS: 36415; 71275; 74177; 80048; 80053; 80076; 82947; 83690; 83735; 85025; 85610; 85730; 87635; 96372; 99222; 99284; J1650; Q9967

== ENCOUNTER 2022-10-07 09:53 | Outpatient (REF) | payer MEDICAID, SELFPAY ==
[2022-10-07 10:16] LABS: MANUAL DIFF FLAG NO
[2022-10-07 10:44] LABS: Basophils Absolute Auto 0.1 X10*3/uL (0.0-0.2); Basophils Percent Auto 1.1 % (0-2); Eosinophils Percent Auto 0.2 % (0-4); Hematocrit 38.6 % (42.0-52.0); Hemoglobin 12.3 g/dl (14.0-18.0); Imm Gran Abs Auto 0.02 X10*3/uL (0.00-0.03); Imm Gran Pct Auto 0.4 % (0.0-0.4); Lymphocytes Absolute Auto 1.9 X10*3/uL (1.2-4.9); Lymphocytes Percent Auto 35.4 % (20-40); Mean Corpuscular HGB Conc 31.9 g/dl (31.0-36.0); Mean Corpuscular Hemoglobin 28.6 pg (27.0-33.0); Mean Corpuscular Volume 89.8 fL (80.0-98.0); Monocytes Absolute Auto 0.4 X10*3/uL (0.1-1.2); Monocytes Percent Auto 6.6 % (2-11); Neutrophils Percent Auto 56.3 % (45-73); Platelet Count 158 X10*3/uL (160-400); Red Cell Distribution Width 14.1 % (11.0-16.0); White Blood Count 5.3 X10*3/uL (4.8-10.8)
== END 2022-10-07 09:54 | disposition home or self-care (01) ==
LOC: HO.LAB 09:53
PROVIDERS: Visit Provider Clinical Nurse Specialist Psychiatric/Mental Health, Adult
DX: Z79.899 Other long term (current) drug therapy (principal)
CPT/HCPCS: 36415; 85025

== ENCOUNTER 2022-11-11 11:00 | Outpatient (REF) | payer MEDICAID, SELFPAY ==
[2022-11-11 13:26] LABS: Neutrophils Absolute Auto 3.1 x10*3/uL (2.0-8.3); White Blood Count 6.1 X10*3/uL (4.8-10.8)
== END 2022-11-11 11:01 | disposition home or self-care (01) ==
LOC: HO.LABR 11:00
PROVIDERS: PCP Internal Medicine Geriatric Medicine; Referring Provider Internal Medicine Geriatric Medicine; Visit Provider Clinical Nurse Specialist Psychiatric/Mental Health, Adult
DX: R59.9 Enlarged lymph nodes, unspecified (principal); Z79.899 Other long term (current) drug therapy
CPT/HCPCS: 36415; 85048; 99202

== ENCOUNTER 2022-12-01 13:28 | Outpatient (REF) | payer MEDICAID, SELFPAY ==
[2022-12-01 13:45] LABS: MANUAL DIFF FLAG NO
[2022-12-01 14:07] LABS: Basophils Absolute Auto 0.1 X10*3/uL (0.0-0.2); Eosinophils Absolute Auto 0.1 X10*3/uL (0.0-0.4); Eosinophils Percent Auto 1.8 % (0-4); Hematocrit 40.8 % (42.0-52.0); Hemoglobin 12.8 g/dl (14.0-18.0); Imm Gran Abs Auto 0.01 X10*3/uL (0.00-0.03); Imm Gran Pct Auto 0.2 % (0.0-0.4); Lymphocytes Absolute Auto 2.6 X10*3/uL (1.2-4.9); Lymphocytes Percent Auto 42.7 % (20-40); Mean Corpuscular HGB Conc 31.4 g/dl (31.0-36.0); Mean Corpuscular Hemoglobin 28.3 pg (27.0-33.0); Mean Corpuscular Volume 90.3 fL (80.0-98.0); Mean Platelet Volume 12.7 fL (9.4-12.4); Monocytes Absolute Auto 0.3 X10*3/uL (0.1-1.2); Monocytes Percent Auto 5.3 % (2-11); Platelet Count 138 X10*3/uL (160-400); Red Blood Count 4.52 X10*6/uL (4.60-5.80); Red Cell Distribution Width 14.6 % (11.0-16.0); White Blood Count 6.1 X10*3/uL (4.8-10.8)
[2022-12-01 18:41] LABS: Prostate Specific Antigen 0.71 ng/mL (<0.05-4.0)
== END 2022-12-01 13:29 | disposition home or self-care (01) ==
LOC: HO.LABR 13:28
PROVIDERS: Internal Medicine Geriatric Medicine; Visit Provider Clinical Nurse Specialist Psychiatric/Mental Health, Adult
DX: Z12.5 Encounter for screening for malignant neoplasm of prostate (principal); Z79.899 Other long term (current) drug therapy
CPT/HCPCS: 36415; 84153; 85025

== ENCOUNTER 2023-02-15 10:36 | Outpatient (REF) | payer MEDICAID, SELFPAY ==
[2023-02-15 10:49] LABS: MANUAL DIFF FLAG NO
[2023-02-15 11:07] LABS: Basophils Percent Auto 0.6 % (0-2); Hematocrit 41.3 % (42.0-52.0); Hemoglobin 13.4 g/dl (14.0-18.0); Imm Gran Abs Auto 0.02 X10*3/uL (0.00-0.03); Imm Gran Pct Auto 0.3 % (0.0-0.4); Lymphocytes Absolute Auto 1.9 X10*3/uL (1.2-4.9); Lymphocytes Percent Auto 29.4 % (20-40); Mean Corpuscular HGB Conc 32.4 g/dl (31.0-36.0); Mean Corpuscular Hemoglobin 30.1 pg (27.0-33.0); Mean Corpuscular Volume 92.8 fL (80.0-98.0); Mean Platelet Volume 11.5 fL (9.4-12.4); Monocytes Absolute Auto 0.4 X10*3/uL (0.1-1.2); Monocytes Percent Auto 5.5 % (2-11); Neutrophils Absolute Auto 4.2 x10*3/uL (2.0-8.3); Neutrophils Percent Auto 64.2 % (45-73); Platelet Count 194 X10*3/uL (160-400); Red Blood Count 4.45 X10*6/uL (4.60-5.80); Red Cell Distribution Width 14.7 % (11.0-16.0); White Blood Count 6.6 X10*3/uL (4.8-10.8)
== END 2023-02-15 10:37 | disposition home or self-care (01) ==
LOC: HO.LABR 10:36
PROVIDERS: Visit Provider Clinical Nurse Specialist Psychiatric/Mental Health, Adult
DX: Z79.899 Other long term (current) drug therapy (principal)
CPT/HCPCS: 36415; 85025

== ENCOUNTER 2023-03-13 12:43 | Emergency (ER) | payer MEDICAID, SELFPAY ==
--- NOTE | ~2023-03-13 | XR_ITS ---
EXAMINATION: Left foot 3 views Left ankle 3 views CLINICAL INFORMATION: Pain status post injury COMPARISON: None. TECHNIQUE: 3 views of the left ankle 3 views of the left foot FINDINGS: Left ankle: Mild lateral soft tissue swelling. The ankle mortise is intact. No discrete fracture. Left foot: Mild lateral soft tissue swelling no discrete fracture. No ankle joint effusion. Calcaneal spurs. XR/XR foot LT min 3V IMPRESSION: Mild lateral soft tissue swelling along the ankle and foot without discrete fracture.
--- NOTE | ~2023-03-13 | XR_ITS ---
EXAMINATION: Left foot 3 views Left ankle 3 views CLINICAL INFORMATION: Pain status post injury COMPARISON: None. TECHNIQUE: 3 views of the left ankle 3 views of the left foot FINDINGS: Left ankle: Mild lateral soft tissue swelling. The ankle mortise is intact. No discrete fracture. Left foot: Mild lateral soft tissue swelling no discrete fracture. No ankle joint effusion. Calcaneal spurs. XR/XR ankle LT min 3V IMPRESSION: Mild lateral soft tissue swelling along the ankle and foot without discrete fracture.
[2023-03-13 13:30] VITALS: BP 131/89; PULSE 86; RESP 16; TEMP 36.9; O2SAT 96; BMI 22.0
--- NOTE | 2023-03-13 14:05 | ED.GENADULT ---
HPI - General Adult General Chief complaint: General Medical Stated complaint: SEC 12 BY [facility] D/T PT UNABLE TO URINE & L FOOT LAC Time Seen by Provider: 03/13/23 13:55 Source: patient, EMS and other (N) Mode of arrival: EMS Limitations: altered mental status History of Present Illness HPI narrative: 57 yo male with history of schizoaffective disorder, bipolar disorder, who presents to the ER on a section 12 from [facility] for concerns of inability to care for self. [facility] reports they were concerned he was not eating at home and he was having difficultly urinating. Patient states he has been compliant with his psych meds, they are in a box and he takes them BID. He denies any urinary issues or issues with PO intake. He states he has plenty of food at home and goes to the grocery store regularly. No SI, HI, AH, VH. Patient's only complaint is left ankle and foot pain. He states he sprained it a couple of days ago. MD complaint: left ankle pain Onset (ago): day(s) Severity: moderate Quality: aching Pain Consistency: intermittent Relieving factors: rest Exacerbating factors: movement Associated symptoms: denies other symptoms Treatments prior to arrival: none Related Data Home Medications Medication Instructions Recorded Confirmed atorvastatin 20 mg tablet 20 mg PO DAILY 08/27/22 11/11/22 clonazepam 1 mg tablet 1 mg PO BID 08/27/22 11/11/22 clozapine 100 mg tablet See Rx Instructions .Route .COMPLEX 08/27/22 11/11/22 docusate sodium 100 mg capsule 100 mg PO DAILY PRN Constipation 08/27/22 11/11/22 metformin 850 mg tablet 850 mg PO BID 08/27/22 11/11/22 montelukast 10 mg tablet 10 mg PO QPM 08/27/22 11/11/22 omeprazole 20 mg capsule,delayed 20 mg PO DAILY 08/27/22 11/11/22 release Previous Rx's Medication Instructions Recorded acetaminophen 500 mg tablet 500 mg PO Q6H PRN pain #14 tabs 07/24/22 apixaban 5 mg tablet (Eliquis) 5 mg PO BID #60 tabs 08/28/22 nicotine 14 mg/24 hr daily 14 mg transdermal DAILY #30 ea 08/28/22 transdermal patch Allergies Allergy/AdvReac Type Severity Reaction Status Date / Time No Known Allergies Allergy Mild NONE Verified 11/11/22 11:20 Review of Systems Review of Systems: Yes all other systems are reviewed and are negative [facility] Past Medical History Medical History (Updated 03/13/23 @ 16:22 by CLAIRE Burks) Intellectual disability Social History Social History Household Members: None Housing: Apartment Do you presently have visiting nurse or other home services: No Patient Tobacco Use Status: Current someday Tobacco user Tobacco use type: Cigarette Smoked in Last 30 Days: Yes e-Cigarette/Vaping Use: Currently Using Second Hand Smoke Exposure: Yes Use of substances other than those prescribed or required for medical reasons: No Advance Directives: No service: No Current occupational status: disabled Physical Exam ED Vital Signs: Vital Signs - 24 hr 03/13/23 13:30 03/13/23 16:02 Temperature 98.5 F Pulse Rate 86 87 Respiratory Rate 16 16 Blood Pressure 131/89 130/74 Pulse Oximetry 96 97 Oxygen Delivery Method Room Air Room Air BMI result Body Mass Index 22.0 Appearance: Alert. Oriented X3. No acute distress. Head: normocephalic, atraumatic. Eyes: Pupils equal, round and reactive to light. ENT: Pharynx normal. No tonsillar swelling or exudate. Neck: Normal inspection. Neck supple. CVS: Normal heart rate and rhythm. Pulses normal. Respiratory: No respiratory distress. Breath sounds normal. Abdomen: Soft and nontender. +BS x4 Skin: Skin warm and dry. Normal skin color. Normal skin turgor. No rashes. Extremities: Left lateral ankle and top of the foot with moderate soft tissue swellign and tenderness. normal ROM of the foot and ankle. NV intact. Neuro/psych: Oriented X 3. No motor deficit. No sensory deficit. CN II-XII intact. Normal speech and cognition. Well kempt. appropriate thought process, makes eye contact. Medical Decision Making Medical Decision Making MDM Narrative: 57-year-old male with history of schizoaffective presenting to the ER on a Section 12 for concerns of caring for self. There was concerns in the community for issues with nausea, decreased p.o. intake, difficulty urinating. Patient urinated here without any issue. He is eating and drinking well. He states he has not had any nausea or vomiting at home. He has plenty of food in his home and goes to the grocery store regularly. He states his only complaint is left ankle and foot pain and swelling after he sprained it a couple of days ago. X-rays performed chart show any acute fractures. Basic lab workup was unremarkable. U tox and alcohol are negative. He denies any and all substance use. He reports compliance to the psych meds. He has outpatient follow-up. He is not in crisis at this time. No need to continue a section 12. At this time stable for discharge home with outpatient follow-up Differential Diagnosis Differential Diagnoses: The differential diagnosis associated with the presentation includes Ankle sprain, ankle fracture, foot contusion, foot fracture No evidence of acute decompensated psychiatric disease such as decompensated schizoaffective disorder or bipolar disorder, not in crisis, not suicidal or homicidal. Admission/Observation Consideration of admission/observation: Escalation of care including admission/observation considered Lab Data MDM Lab Attestation statement: I reviewed the patient's lab results. 03/13/23 14:27 03/13/23 14:27 Labs: Lab Results 03/13/23 03/13/23 Range/Units 14:17 14:27 WBC 4.3 L (4.8-10.8) X10*3/uL RBC 4.22 L (4.60-5.80) X10*6/uL Hgb 12.7 L (14.0-18.0) g/dl Hct 39.1 L (42.0-52.0) % MCV 92.7 (80.0-98.0) fL MCH 30.1 (27.0-33.0) pg MCHC 32.5 (31.0-36.0) g/dl RDW 14.6 (11.0-16.0) % Plt Count 178 (160-400) X10*3/uL MPV 10.6 (9.4-12.4) fL Immature Gran % (Auto) 0.2 (0.0-0.4) % Neut % (Auto) 47.3 (45-73) % Lymph % (Auto) 45.1 H (20-40) % [place] % (Auto) 6.5 (2-11) % Eos % (Auto) 0.0 (0-4) % Baso % (Auto) 0.9 (0-2) % Lymph # (Auto) 1.9 (1.2-4.9) X10*3/uL [place] # (Auto) 0.3 (0.1-1.2) X10*3/uL Eos # (Auto) 0.0 (0.0-0.4) X10*3/uL Baso # (Auto) 0.0 (0.0-0.2) X10*3/uL Abs Immat Gran (auto) 0.01 (0.00-0.03) X10*3/uL Absolute Neuts (auto) 2.0 (2.0-8.3) x10*3/uL Absolute Nucleated RBC 0.000 (0.0-0.012) X10*3/uL Nucleated RBC % (auto) 0.0 (0.0-0.2) /100WBC Sodium 139 (135-145) mmol/L Potassium 4.0 (3.3-5.1) mmol/L Chloride 105 (96-108) mmol/L Carbon Dioxide 26 (22-29) mmol/L Anion Gap 12 (12-20) BUN 7 L (9-16) mg/dL Creatinine 0.74 (0.5-1.4) mg/dL Estim Creat Clear Calc 107.6 Estimated GFR > 60 POC Glucose 100 (60-115) mg/dL Random Glucose 88 (60-115) mg/dL Calcium 8.4 (8.4-10.2) mg/dL Magnesium 1.5 L (1.6-2.6) mg/dL Total Bilirubin 0.4 (0.0-1.0) mg/dL Direct Bilirubin 0.3 (0.0-0.5) mg/dL AST 38 H (5-37) U/L ALT 33 (0-40) U/L Alkaline Phosphatase 140 H (39-117) U/L Total Protein 5.4 L (6.5-8.0) g/dL Albumin 2.7 L (3.5-5.0) g/dL Urine Color Yellow Urine Appearance Clear Urine pH 6.5 (5.0-9.0) Ur Specific [place] 1.010 (1.005-1.025) Urine Protein Negative (Neg-Trace) mg/dL Urine Glucose (UA) >=1000 H (Negative) mg/dL Urine Ketones Negative (Negative) mg/dL Urine Blood Negative (Negative) Urine Nitrite Negative (Negative) Ur Leukocyte Esterase Trace H (Negative) Urine RBC 0-2 (0-2) /HPF Urine WBC 0-5 (0-5) /HPF Ur Squamous Epith Cells 0-2 (0-2) /HPF Urine Bacteria None Seen (None Seen) Hyaline Casts 0-2 (0-2) /LPF Urine Opiates Screen Not Detected (Not Detect) Urine Fentanyl Screen Not Detected (Not Detect) Ur Barbiturates Screen Not Detected (Not Detect) Ur Phencyclidine Scrn Not Detected (Not Detect) Ur Amphetamines Screen Not Detected (Not Detect) U Benzodiazepines Scrn Not Detected (Not Detect) Urine Cocaine Screen Not Detected (Not Detect) U Marijuana (THC) Screen Not Detected (Not Detect) Ethyl Alcohol < 10 mg/dL Independent Interpretation I performed an independent interpretation of an: Plain X-Ray Interpretation: No evidence of acute fracture, agree with radiologist read Radiology Impression Discussion of test interpretation with radiology: I have reviewed the radiologist's reading. Radiologist Impression: EXAMINATION: Left foot 3 views Left ankle 3 views CLINICAL INFORMATION: Pain status post injury COMPARISON: None. TECHNIQUE: 3 views of the left ankle 3 views of the left foot FINDINGS: Left ankle: Mild lateral soft tissue swelling. The ankle mortise is intact. No discrete fracture. Left foot: Mild lateral soft tissue swelling no discrete fracture. No ankle joint effusion. Calcaneal spurs. XR/XR ankle LT min 3V IMPRESSION: Mild lateral soft tissue swelling along the ankle and foot without discrete fracture. Independent Historian Clinical information obtained from an independent historian. History obtained from or confirmed by: EMS Prescription Management I considered prescription management with: Pain Medication Chronic Conditions Patient?s care impacted by: Other (Schizoaffective disorder) Social Determinants Patient?s care significantly limited by Social Determinants of Health including: Other Social Determinant of Health Critical Care Time Critical Care Time Critical Care Time: No Discharge Plan Discharge Clinical Impression: Ankle sprain Qualifiers: Encounter type: initial encounter Involved ligament of ankle: unspecified ligament Laterality: left Qualified Code(s): S93.402A - Sprain of unspecified ligament of left ankle, initial encounter Patient Disposition: Home, Self-Care Instructions: Ankle Sprain (DC) Additional Instructions: Your x-ray today did not show any broken bones Rest your ankle and elevate your foot when possible. Recommend EMILIANO wrap for support and compression. Use ice several times per day for the next 48 hours. You may bear weight as tolerated. Take Motrin and/or Tylenol as needed for pain. Follow up with your doctor as soon as possible If you develop new or worsening symptoms call 911 or come back to the ER for further evaluation. Prescriptions: No Action acetaminophen 500 mg tablet 500 mg PO Q6H PRN (Reason: pain) Qty: 14 0RF atorvastatin 20 mg tablet 20 mg PO DAILY clozapine 100 mg tablet See Rx Instructions .ROUTE .COMPLEX Rx Instructions: take two (2) tablets by mouth every morning and take five (5) tablets by mouth at bedtime. clonazepam 1 mg tablet 1 mg PO BID metformin 850 mg tablet 850 mg PO BID Hold Instructions: Resume on 08/30/22. docusate sodium 100 mg capsule 100 mg PO DAILY PRN (Reason: Constipation) omeprazole 20 mg capsule,delayed release(DR/EC) 20 mg PO DAILY montelukast 10 mg tablet 10 mg PO QPM nicotine 14 mg/24 hr Patch 24 Hour 14 mg transdermal DAILY Qty: 30 0RF Eliquis 5 mg tablet 5 mg PO BID Qty: 60 0RF Rx Instructions: Take Eliquis 5 mg 2 tablets twice daily for 7 days Then take Eliquis 5 mg 1 tablet twice daily.
[2023-03-13 14:21] LABS: Glucose, Whole Blood 100 mg/dL (60-115)
[2023-03-13 14:31] LABS: MANUAL DIFF FLAG NO
[2023-03-13 14:32] LABS: Basophils Percent Auto 0.9 % (0-2); Hematocrit 39.1 % (42.0-52.0); Hemoglobin 12.7 g/dl (14.0-18.0); Imm Gran Abs Auto 0.01 X10*3/uL (0.00-0.03); Imm Gran Pct Auto 0.2 % (0.0-0.4); Lymphocytes Absolute Auto 1.9 X10*3/uL (1.2-4.9); Lymphocytes Percent Auto 45.1 % (20-40); Mean Corpuscular HGB Conc 32.5 g/dl (31.0-36.0); Mean Corpuscular Hemoglobin 30.1 pg (27.0-33.0); Mean Corpuscular Volume 92.7 fL (80.0-98.0); Mean Platelet Volume 10.6 fL (9.4-12.4); Monocytes Absolute Auto 0.3 X10*3/uL (0.1-1.2); Monocytes Percent Auto 6.5 % (2-11); Neutrophils Percent Auto 47.3 % (45-73); Platelet Count 178 X10*3/uL (160-400); Red Blood Count 4.22 X10*6/uL (4.60-5.80); Red Cell Distribution Width 14.6 % (11.0-16.0); White Blood Count 4.3 X10*3/uL (4.8-10.8)
[2023-03-13 14:38] LABS: Appearance Urine Clear; Color Urine Yellow; Glucose Urine UA >=1000 mg/dL (Negative); Leukocyte Esterase Urine Trace (Negative); Nitrite Urine Negative (Negative); PH 6.5 (5.0-9.0); UMIC TRIGGER UACC YES; Urine Blood Negative (Negative); Urine Ketones Negative (Negative); Urine Protein Negative (Neg-Trace)
--- NOTE | 2023-03-13 14:38 | PC.NURSE ---
giorgi degroot pa came to bed to eval- pt answering all questions appropriately still, aox4. states he has been eating this week and voiding w/o issues. pt voided in urinal 300cc- sample sent. +VS on monitor. talks w/o distress. blood sent to lab. pa aware section 12 expires at 1430 from yesterday. no si/hi/ah/vh/ch/self harm behaviors.
[2023-03-13 14:43] LABS: Bacteria Urine None Seen (None Seen); Hyaline Casts Urine 0-2 /LPF (0-2); RBC Urine 0-2 /HPF (0-2); Squamous Epithelial Cell Urine 0-2 /HPF (0-2); WBC Urine 0-5 /HPF (0-5)
--- NOTE | 2023-03-13 14:53 | PC.NURSE ---
pt remains aox4. eating/drinking po fluids well. no distress noted. bladder scanned 0 cc s/p void 200cc clear yellow urine w/o odor.
[2023-03-13 14:56] LABS: Amphetamine Screen Urine Not Detected (Not Detect); Barbiturates, Urine Not Detected (Not Detect); Benzodiazepines Screen Urine Not Detected (Not Detect); Cannabinoid Screen Urine Not Detected (Not Detect); Cocaine Screen Urine Not Detected (Not Detect); Fentanyl, urine Not Detected (Not Detect); Opiate Screen Urine Not Detected (Not Detect); Phencyclidine Screen Urine Not Detected (Not Detect)
[2023-03-13 15:18] LABS: Alanine Aminotransferase 33 U/L (0-40); Albumin Level 2.7 g/dL (3.5-5.0); Alkaline Phosphatase 140 U/L (39-117); Anion Gap 12 (12-20); Aspartate Amino Transferase 38 U/L (5-37); Bilirubin Direct 0.3 mg/dL (0.0-0.5); Bilirubin Total 0.4 mg/dL (0.0-1.0); Blood Urea Nitrogen 7 mg/dL (9-16); Calcium 8.4 mg/dL (8.4-10.2); Carbon Dioxide 26 mmol/L (22-29); Chloride 105 mmol/L (96-108); Creatinine Clr Calc Pharmacy 107.6; Estimated Glomerular Filt Rate > 60; Ethanol < 10 mg/dL; Glucose Random 88 mg/dL (60-115); Magnesium 1.5 mg/dL (1.6-2.6); Sodium 139 mmol/L (135-145); Total Protein 5.4 g/dL (6.5-8.0)
[2023-03-13 16:02] VITALS: BP 130/74; PULSE 87; RESP 16; O2SAT 97
== END 2023-03-13 16:43 | disposition home or self-care (01) ==
PROVIDERS: Physician Assistant; Emergency Provider Internal Medicine
DX: S93.402A Sprain of unspecified ligament of left ankle, initial encounter (principal); X58.XXXA Exposure to other specified factors, initial encounter; F25.0 Schizoaffective disorder, bipolar type; F17.210 Nicotine dependence, cigarettes, uncomplicated; Z86.718 Personal history of other venous thrombosis and embolism; Y93.9 Activity, unspecified; Y92.9 Unspecified place or not applicable; Y99.9 Unspecified external cause status; Z79.84 Long term (current) use of oral hypoglycemic drugs; Z79.899 Other long term (current) drug therapy; Z79.01 Long term (current) use of anticoagulants
CPT/HCPCS: 36415; 73610; 73630; 80048; 80076; 80307; 81001; 82947; 83735; 85025; 99283; 99284

== ENCOUNTER 2023-05-13 10:07 | Outpatient (REF) | payer MEDICAID, SELFPAY ==
[2023-05-13 10:21] LABS: MANUAL DIFF FLAG NO
[2023-05-13 10:44] LABS: Basophils Absolute Auto 0.1 X10*3/uL (0.0-0.2); Basophils Percent Auto 1.2 % (0-2); Hematocrit 41.2 % (42.0-52.0); Hemoglobin 13.5 g/dl (14.0-18.0); Imm Gran Abs Auto 0.01 X10*3/uL (0.00-0.03); Imm Gran Pct Auto 0.2 % (0.0-0.4); Lymphocytes Absolute Auto 2.8 X10*3/uL (1.2-4.9); Lymphocytes Percent Auto 55.7 % (20-40); Mean Corpuscular HGB Conc 32.8 g/dl (31.0-36.0); Mean Corpuscular Hemoglobin 30.1 pg (27.0-33.0); Mean Corpuscular Volume 91.8 fL (80.0-98.0); Mean Platelet Volume 11.7 fL (9.4-12.4); Monocytes Absolute Auto 0.4 X10*3/uL (0.1-1.2); Monocytes Percent Auto 6.9 % (2-11); Neutrophils Absolute Auto 1.8 x10*3/uL (2.0-8.3); Platelet Count 160 X10*3/uL (160-400); Red Blood Count 4.49 X10*6/uL (4.60-5.80); Red Cell Distribution Width 16.6 % (11.0-16.0); White Blood Count 5.1 X10*3/uL (4.8-10.8)
== END 2023-05-13 10:08 | disposition home or self-care (01) ==
LOC: HO.LAB 10:07
PROVIDERS: Visit Provider Clinical Nurse Specialist Psychiatric/Mental Health, Adult
DX: Z79.899 Other long term (current) drug therapy (principal)
CPT/HCPCS: 36415; 85025

== ENCOUNTER 2023-06-28 08:03 | Outpatient (REF) | payer MEDICAID, SELFPAY ==
--- NOTE | ~2023-06-28 | CT_ITS ---
EXAMINATION: CT ABDOMEN AND PELVIS WITH CONTRAST CLINICAL INFORMATION: Chronic vomiting and severe weight loss. COMPARISON: CT abdomen and pelvis dated 08/27/2022. TECHNIQUE: Multidetector volumetric images were obtained from the superior aspect of the liver through the pubic symphysis following administration 85 mL of Omnipaque 350 intravenous contrast. Sagittal and coronal reformatted images were obtained on the technologist's workstation. Oral contrast: Yes This CT examination was performed using dose optimization techniques as appropriate, variously including the following: *Automated exposure control *Adjustment of mA and/or kV according to patient size (this includes techniques or standardized protocols for targeted exams where dose is matched to indication/reason for exam; i.e. extremities or head) *Use of iterative reconstruction technique DLP: 270 mGy-cm FINDINGS: LUNG BASES: The visualized lung bases are unremarkable. LIVER, GALLBLADDER, AND BILIARY TREE: The liver is normal in size, shape and markedly diminished in attenuation, with pericholecystic sparing. No focal hepatic lesion or biliary ductal dilatation is present. The gallbladder is unremarkable with no evidence of radiopaque gallstones, gallbladder wall thickening, or obvious pericholecystic inflammatory changes. PANCREAS: Unremarkable. SPLEEN: Unremarkable. ADRENAL GLANDS: Unremarkable. KIDNEYS AND URETERS: The kidneys are normal in size, shape, and attenuation. No hydronephrosis, hydroureter, or calculi seen. No perinephric stranding. BLADDER: Unremarkable. GASTROINTESTINAL TRACT: There is a large stool burden, suggesting possible constipation. No obstruction, free intraperitoneal air or abscess is seen. There is no focal bowel wall thickening. The vermiform appendix appears normal. ABDOMINAL WALL: No significant hernia is appreciated. LYMPH NODES: Normal. VASCULAR: There is mild aortoiliac atherosclerotic calcification. No abdominal aortic aneurysm or dissection is seen. PELVIC VISCERA: The prostate and seminal vesicles are unremarkable. There are coarse central prostate calcifications. OSSEOUS STRUCTURES: There is multi-level thoracolumbar spondylosis. There are degenerative changes of the hips. No acute or aggressive osseous finding is noted. CT/CT abdomen pelvis w IV con IMPRESSION: 1. Findings suggest constipation. No bowel obstruction, free intraperitoneal air or abscess is seen. 2. There is no urinary calculus or obstruction. 3. No abdominopelvic mass, free fluid or lymphadenopathy is seen. 4. There is diffuse hepatic steatosis. 5. There are degenerative changes of the spine and hips. No acute or aggressive osseous finding is seen. Fleischner guidelines were followed.
[2023-06-28] MEDS: iohexoL 350 MG/ML 75 ML INFUS..BTL 85 ML IV (10:57)
[2023-06-28] MEDS: Barium Sulfate Oral (Mocha) 450 ML ORAL.SUSP 900 ML PO (10:57)
[2023-06-29 08:51] LABS: Creatinine POC 0.7 mg/dL (0.5-1.4); GFR POC > 60
== END 2023-06-28 08:04 | disposition home or self-care (01) ==
LOC: HO.CT 08:03
PROVIDERS: PCP Internal Medicine Geriatric Medicine; Visit Provider Internal Medicine Geriatric Medicine
DX: R11.10 Vomiting, unspecified (principal); R63.4 Abnormal weight loss
CPT/HCPCS: 74177; 82565; Q9967

== ENCOUNTER 2023-07-15 10:22 | Outpatient (REF) | payer MEDICAID, SELFPAY ==
--- NOTE | ~2023-07-15 | XR_ITS ---
EXAMINATION: XR chest 2V CLINICAL INFORMATION: Reason for Exam unintentional wt loss, smoker, abdominal ct negative , recent hx of dvt COMPARISON: 04/30/2017 TECHNIQUE: 2 views of the chest FINDINGS: Clear lungs. No pneumothorax or pleural effusion. Normal cardiomediastinal silhouette. XR/XR chest 2V Impression: * Clear lungs.
[2023-07-15 10:41] LABS: MANUAL DIFF FLAG NO
[2023-07-15 11:40] LABS: Basophils Absolute Auto 0.1 X10*3/uL (0.0-0.2); Basophils Percent Auto 1.4 % (0-2); Hematocrit 39.1 % (42.0-52.0); Hemoglobin 12.9 g/dl (14.0-18.0); Imm Gran Abs Auto 0.01 X10*3/uL (0.00-0.03); Imm Gran Pct Auto 0.2 % (0.0-0.4); Lymphocytes Absolute Auto 2.3 X10*3/uL (1.2-4.9); Mean Corpuscular Hemoglobin 31.2 pg (27.0-33.0); Mean Corpuscular Volume 94.7 fL (80.0-98.0); Mean Platelet Volume 11.8 fL (9.4-12.4); Monocytes Absolute Auto 0.3 X10*3/uL (0.1-1.2); Monocytes Percent Auto 7.3 % (2-11); Neut%MD 40.1 %; Neutrophils Absolute Auto 1.8 x10*3/uL (2.0-8.3); Neutrophils Percent Auto 40.1 % (45-73); Platelet Count 145 X10*3/uL (160-400); Red Blood Count 4.13 X10*6/uL (4.60-5.80); Red Cell Distribution Width 16.7 % (11.0-16.0); WBCANC 4.4 X10*3/uL; White Blood Count 4.4 X10*3/uL (4.8-10.8)
[2023-07-15 12:32] LABS: Prostate Specific Antigen 0.62 ng/mL (<0.05-4.0)
== END 2023-07-15 10:23 | disposition home or self-care (01) ==
LOC: HO.LAB 10:22
PROVIDERS: Absent Provider Internal Medicine Geriatric Medicine; PCP Internal Medicine Geriatric Medicine; Referring Provider Clinical Nurse Specialist Psychiatric/Mental Health, Adult; Visit Provider Nurse Practitioner Family
DX: R63.4 Abnormal weight loss (principal); Z12.5 Encounter for screening for malignant neoplasm of prostate; Z79.899 Other long term (current) drug therapy
CPT/HCPCS: 36415; 71046; 84153; 85025

== ENCOUNTER 2023-08-03 14:20 | Outpatient (REF) | payer MEDICAID, SELFPAY ==
[2023-08-03 16:53] LABS: Estimated Average Glucose 105 mg/dL; Hemoglobin A1c % 5.3 % (<6.0)
[2023-08-03 17:40] LABS: Alanine Aminotransferase 50 U/L (0-40); Albumin Level 2.7 g/dL (3.5-5.0); Alkaline Phosphatase 181 U/L (39-117); Anion Gap 8 (12-20); Aspartate Amino Transferase 54 U/L (5-37); Bilirubin Direct 0.3 mg/dL (0.0-0.5); Bilirubin Total 0.7 mg/dL (0.0-1.0); Blood Urea Nitrogen 12 mg/dL (9-16); Calcium 8.2 mg/dL (8.4-10.2); Carbon Dioxide 27 mmol/L (22-29); Chloride 109 mmol/L (96-108); Estimated Glomerular Filt Rate > 60; Glucose Random 111 mg/dL (60-115); Iron 73 mcg/dL (45-160); Percent Iron Saturation 44 % (15-50); Sodium 140 mmol/L (135-145); Total Iron Binding Capacity 166 mcg/dL (228-428); Total Protein 5.5 g/dL (6.5-8.0); Unsaturated Iron Binding 93 ug/dL
[2023-08-04 04:30] LABS: Hepatitis A Antibody IgM 0.24 Index (0-0.79); ~Hepatitis A Antibody IgM Nonreactive (Nonreactive)
[2023-08-04 04:55] LABS: HBS Num1 0.01 mIU/mL (0-7.99); HBc Num1 0.07 S/CO (0.00-0.79); HBsAGNum1 0.46 S/CO (0.00-0.99); HIV AB/AG Nonreactive (Nonreactive); Hepatitis B Core Antibody Nonreactive (Nonreactive); Hepatitis B Surface Antigen Negative (Negative); ~HepC Num1 0.11 S/CO (0.00-0.79); ~Hepatitis B Surface Antibody NONREACTIVE (Nonreactive); ~Hepatitis C Antibody Nonreactive (Nonreactive)
== END 2023-08-03 14:21 | disposition home or self-care (01) ==
LOC: HO.LAB 14:20
PROVIDERS: PCP Internal Medicine Geriatric Medicine; Visit Provider Nurse Practitioner Family
DX: R63.4 Abnormal weight loss (principal); R74.01 Elevation of levels of liver transaminase levels; K21.9 Gastro-esophageal reflux disease without esophagitis; R79.89 Other specified abnormal findings of blood chemistry; E11.9 Type 2 diabetes mellitus without complications; R11.0 Nausea; Z79.01 Long term (current) use of anticoagulants; K62.89 Other specified diseases of anus and rectum; D50.9 Iron deficiency anemia, unspecified; K66.0 Peritoneal adhesions (postprocedural) (postinfection); R10.9 Unspecified abdominal pain
CPT/HCPCS: 36415; 80053; 82248; 83036; 83540; 84134; 86704; 86706; 86709; 86803; 87340; 87389; 99212

== ENCOUNTER 2023-08-03 14:20 | Outpatient (AMB) | payer MEDICAID, SELFPAY ==
--- NOTE | 2023-08-03 14:26 | A.OFFVIS_ITS ---
Intake Vital Signs 08/03/23 14:44 Height 5 ft 9 in Weight 129 lb 3.054 oz BMI 19.1 BP 122/66 Blood Pressure Location Rt brachial Position Sitting Pulse 101 H Pulse Source Pulse Oximeter Intake Visit Reasons: 30 lb weight loss, nausea Intake Note: Pt presents to the office today for a new patient visit for 30lb weight loss and nausea. Pt is accompanied by his precision layout worker from [facility]. She states that he had issues with nausea/vomiting/ and diarrhea months ago that he would complain about it but she states he hasn't complained about it lately. They are mostly concerned about his weight loss. Allergies No Known Allergies Allergy (Mild, Verified 08/03/23 14:45) NONE HPI 30 lb weight loss, nausea HPI Details 58 years old male with past medical hist ory of DVT, currently on Eliquis, hyperlipidemia, anxiety, diabetes, GERD, lymphadenopathy is here today for initial consultation. Patient was sent to us for evaluating of his recent unintentional weight loss. Per patient staff patient has lost about 30 lb in past few weeks. Patient is alert and oriented to self, lives alone however has staff looking after him from [facility]. Patient's PCP thought that this could be related to Jardiance so currently this is on hold. Patient was having nausea and vomiting, however since the medication was stopped patient is not having any more nausea or vomiting, however he continues to lose weight. Patient reports that he eats 3 meals a day. Drinks plenty fluids. Patient's concern today is rectal pain. Patient reports that he has rectal pain and is unable to sit for a long period of time. Patient denies any fever or chills. Denies any melena or hematochezia. Patient is taking stool softener on as needed basis to help him go to the bathroom. Patient denies any dyspepsia, dysphagia or odynophagia. [facility] Medical History Intellectual disability Social History (Updated 08/03/23 @ 14:49 by Evelia Abreu MA) Household Members: None Housing: Apartment Do you presently have visiting nurse or other home services: No Patient Tobacco Use Status: Current someday Tobacco user Tobacco use type: Cigarette Cigarettes Per Day: 10 e-Cigarette/Vaping Use: Currently Using Second Hand Smoke Exposure: Yes service: No Current occupational status: disabled Physical Exam Vital Signs: Last Vital Signs Pulse 101 H 08/03/23 14:44 BP 122/66 08/03/23 14:44 BMI result Body Mass Index 19.1 Const General: no acute distress Nutritional Appearance: underweight Orientation/consciousness: patient oriented x3 Resp Effort & Inspection: normal respiratory effort, able to speak in complete sentences, no tracheal deviation and symmetric chest movement Auscultation: clear to auscultation bilaterally Cardio Rate: regular rate GI Inspection: No distended Palpation (GI): Soft to palpation, not firm, nontender and No hepatosplenomegaly present Auscultation: normal bowel sounds Rectal Exam - Male: Yes other (Coccyx Adhesions) General: Yes no CVA tenderness Back/Spine/Pelvis Back: no CVA tenderness Skin General skin exam: elasticity normal, turgor normal and dry skin Neuro General: patient oriented x3 Psych Appearance: grossly normal Assessment & Plan Assessment & Plan (1) Weight loss, unintentional: Code(s): R63.4 - Abnormal weight loss (2) Anemia: Code(s): D64.9 - Anemia, unspecified Qualifiers: Iron deficiency anemia type: unspecified iron deficiency Anemia type: iron deficiency Qualified Code(s): D50.9 - Iron deficiency anemia, unspecified (3) Perirectal adhesions: Code(s): K66.0 - Peritoneal adhesions (postprocedural) (postinfection) Plan Patient is very hyper focused on his rectal pain. After exam noted adhesion on his coccyx area not close to his rectum. Patient will be sent for evaluation by General surgery. Patient will continue taking Colace daily. Will send her for abdominal ultrasound, more lab work. He will return in 3 weeks and we will discuss going for colonoscopy. In the past patient has refused colonoscopy. Was sent for colonoscopy by his PCP 1 year ago. Patient never had colonoscopy in the past. Patient was encouraged to drink protein shakes in between meals. Both patient and his precision layout worker are agreeable to plan of care and verbalizes understanding of instructions. They were given patient has and all questions answered. Thank you for allowing me to participate in his care Orders: Orders HIV Ab/Ag Today R79.89 - Other specified abnormal findings of blood chemistry Hemoglobin A1c Today E11.9 - Type 2 diabetes mellitus without complications IRON PROFILE Today D64.9 - Anemia, unspecified Hepatitis A,B,C Profile Today R79.89 - Other specified abnormal findings of blood chemistry Liver Panel Today R74.01 - Elevation of levels of liver transaminase levels US abdomen complete Today R10.9 - Unspecified abdominal pain Comprehensive Met. Panel Today K21.9 - Gastro-esophageal reflux disease without esophagitis Prealbumin Today D64.9 - Anemia, unspecified, R63.4 - Abnormal weight loss Referrals General Surgery Referral K66.0 - Peritoneal adhesions (postprocedural) (postinfection) Coding Level of Care Code New Pt Level 4 (19357) Diagnoses Weight loss, unintentional R63.4 Iron deficiency anemia, unspecified iron deficiency anemia type D50.9 Iron deficiency anemia type: unspecified iron deficiency Anemia type: iron deficiency Perirectal adhesions K66.0 Time Spent (min) 45 Comment 30 minutes spent with patient and additional 15 minutes spent reviewing his records
[2023-08-03 14:44] VITALS: BP 122/66; PULSE 101; BMI 19.1
== END 2023-08-03 15:20 | disposition home or self-care (01) ==
PROVIDERS: PCP Internal Medicine Geriatric Medicine; Visit Provider Nurse Practitioner Family
DX: R63.4 Abnormal weight loss (principal); D50.9 Iron deficiency anemia, unspecified; K66.0 Peritoneal adhesions (postprocedural) (postinfection)
CPT/HCPCS: 99204

== ENCOUNTER 2023-08-11 10:19 | Outpatient (REF) | payer MEDICAID, SELFPAY ==
[2023-08-11 10:38] LABS: MANUAL DIFF FLAG NO
[2023-08-11 10:58] LABS: Basophils Absolute Auto 0.1 X10*3/uL (0.0-0.2); Basophils Percent Auto 2.1 % (0-2); Hematocrit 36.7 % (42.0-52.0); Hemoglobin 12.2 g/dl (14.0-18.0); Imm Gran Abs Auto 0.01 X10*3/uL (0.00-0.03); Imm Gran Pct Auto 0.3 % (0.0-0.4); Lymphocytes Absolute Auto 1.5 X10*3/uL (1.2-4.9); Lymphocytes Percent Auto 40.1 % (20-40); Mean Corpuscular HGB Conc 33.2 g/dl (31.0-36.0); Mean Corpuscular Volume 96.3 fL (80.0-98.0); Monocytes Absolute Auto 0.3 X10*3/uL (0.1-1.2); Monocytes Percent Auto 6.9 % (2-11); Neut%MD 48.9 %; Neutrophils Absolute Auto 1.9 x10*3/uL (2.0-8.3); Neutrophils Percent Auto 50.6 % (45-73); Platelet Count 148 X10*3/uL (160-400); Red Blood Count 3.81 X10*6/uL (4.60-5.80); Red Cell Distribution Width 15.3 % (11.0-16.0); White Blood Count 3.8 X10*3/uL (4.8-10.8)
[2023-08-11 11:36] LABS: Alanine Aminotransferase 47 U/L (0-40); Albumin Level 2.6 g/dL (3.5-5.0); Alkaline Phosphatase 168 U/L (39-117); Anion Gap 12 (12-20); Aspartate Amino Transferase 45 U/L (5-37); Bilirubin Total 0.6 mg/dL (0.0-1.0); Blood Urea Nitrogen 10 mg/dL (9-16); Calcium 8.1 mg/dL (8.4-10.2); Carbon Dioxide 25 mmol/L (22-29); Chloride 107 mmol/L (96-108); Estimated Glomerular Filt Rate > 60; Glucose Random 162 mg/dL (60-115); Potassium 4.1 mmol/L (3.3-5.1); Sodium 140 mmol/L (135-145); Total Protein 5.1 g/dL (6.5-8.0)
[2023-08-11 11:52] LABS: TSH reflex Free T4 0.76 uIU/mL (0.32-4.0)
[2023-08-11 11:53] LABS: HIV AB/AG Nonreactive (Nonreactive); HIV Num 1 0.07 S/CO (0.00-0.99); ~HepC Num1 0.11 S/CO (0.00-0.79); ~Hepatitis C Antibody Nonreactive (Nonreactive)
== END 2023-08-11 10:20 | disposition home or self-care (01) ==
LOC: HO.LABR 10:19
PROVIDERS: Nurse Practitioner Family; PCP Internal Medicine Geriatric Medicine; Visit Provider Clinical Nurse Specialist Psychiatric/Mental Health, Adult
DX: R63.4 Abnormal weight loss (principal); Z79.899 Other long term (current) drug therapy
CPT/HCPCS: 36415; 80053; 84443; 85025; 85048; 86803; 87389

== ENCOUNTER 2023-08-19 10:16 | Emergency (ER) | payer MEDICAID, SELFPAY ==
--- NOTE | 2023-08-19 | ECG_ITS ---
Test Reason : DIZZENESS Blood Pressure : / mmHG Vent. Rate : 099 BPM Atrial Rate : 099 BPM P-R Int : 128 ms QRS Dur : 084 ms QT Int : 342 ms P-R-T Axes : 081 070 061 degrees QTc Int : 438 ms Normal sinus rhythm Normal ECG When compared with ECG of 09-JAN-2009 17:32, Questionable change in QRS duration Referred By: Generic ED Physician Electronically Signed By:Isra Clifton
--- NOTE | ~2023-08-19 | XR_ITS ---
EXAMINATION: XR CHEST CLINICAL INFORMATION: Weakness COMPARISON: None available. TECHNIQUE: 2 views of the chest were obtained. FINDINGS: The lungs are hyperinflated but clear of acute process. The heart size and pulmonary vascularity is normal. No gross bony abnormality seen. XR/XR chest 2V IMPRESSION: Hyperinflated lungs without acute process.
[2023-08-19 10:28] VITALS: BP 96/63; PULSE 103; RESP 16; TEMP 37.2; O2SAT 100; BMI 18.2
[2023-08-19 10:52] LABS: MANUAL DIFF FLAG NO
[2023-08-19 10:59] LABS: Basophils Absolute Auto 0.1 X10*3/uL (0.0-0.2); Basophils Percent Auto 1.4 % (0-2); Hematocrit 36.8 % (42.0-52.0); Hemoglobin 12.4 g/dl (14.0-18.0); Imm Gran Abs Auto 0.01 X10*3/uL (0.00-0.03); Imm Gran Pct Auto 0.2 % (0.0-0.4); Lymphocytes Percent Auto 46.3 % (20-40); Mean Corpuscular HGB Conc 33.7 g/dl (31.0-36.0); Mean Corpuscular Hemoglobin 31.9 pg (27.0-33.0); Mean Corpuscular Volume 94.6 fL (80.0-98.0); Mean Platelet Volume 11.2 fL (9.4-12.4); Monocytes Absolute Auto 0.3 X10*3/uL (0.1-1.2); Monocytes Percent Auto 6.1 % (2-11); Platelet Count 136 X10*3/uL (160-400); Red Blood Count 3.89 X10*6/uL (4.60-5.80); Red Cell Distribution Width 15.3 % (11.0-16.0); White Blood Count 4.4 X10*3/uL (4.8-10.8)
[2023-08-19 11:09] LABS: Anion Gap 11 (12-20); Bilirubin Total 0.5 mg/dL (0.0-1.0); Blood Urea Nitrogen 15 mg/dL (9-16); Calcium 7.9 mg/dL (8.4-10.2); Carbon Dioxide 28 mmol/L (22-29); Chloride 106 mmol/L (96-108); Creatinine Clr Calc Pharmacy 93.3; Estimated Glomerular Filt Rate > 60; Glucose Random 156 mg/dL (60-115); Potassium 4.1 mmol/L (3.3-5.1); Sodium 141 mmol/L (135-145)
[2023-08-19 11:10] LABS: Alanine Aminotransferase 37 U/L (0-40); Albumin Level 2.5 g/dL (3.5-5.0); Alkaline Phosphatase 167 U/L (39-117); Aspartate Amino Transferase 42 U/L (5-37); Total Protein 5.1 g/dL (6.5-8.0)
[2023-08-19 11:58] LABS: Troponin-I High Sensitivity < 2.7 ng/L (<3.5-35.0)
[2023-08-19 12:33] VITALS: BP 96/67; PULSE 105; RESP 16; TEMP 37.3; O2SAT 100
--- NOTE | 2023-08-19 12:33 | ED_ITS ---
HPI - General Adult General Chief complaint: General Medical Stated complaint: Low BP, dizziness - sent by PCP Time Seen by Provider: 08/19/23 22:01 Source: patient, RN notes reviewed and old records reviewed Mode of arrival: ambulatory Limitations: no limitations History of Present Illness HPI narrative: 58-year-old male past medical history significant for DVT on Eliquis, asthma, tobacco dependence, GERD, diabetes presents for evaluation of weight loss Patient arrives from [facility] with a nurse staff member from [facility] Apparently the patient has had intermittent dizziness over the last few days. His blood pressure yesterday was ?80/60. Currently the patient denies any complaints or concerns He denies any pain or dizziness The nurse with the patient states the patient has had a 40 lb weight loss in the last 6 months He reports he has been eating and denies nausea vomiting He has no other complaints or concerns at this time Related Data Home Medications Medication Instructions Recorded Confirmed atorvastatin 20 mg tablet 20 mg PO DAILY 08/27/22 11/11/22 clonazepam 1 mg tablet 1 mg PO BID 08/27/22 11/11/22 docusate sodium 100 mg capsule 100 mg PO DAILY PRN Constipation 08/27/22 11/11/22 metformin 850 mg tablet 850 mg PO BID 08/27/22 11/11/22 montelukast 10 mg tablet 10 mg PO QPM 08/27/22 11/11/22 omeprazole 20 mg capsule,delayed 20 mg PO DAILY 08/27/22 11/11/22 release clonazepam 1 mg tablet (Klonopin) 1 mg PO BID 08/03/23 clozapine 100 mg tablet (Clozaril) 200 mg PO QAM 08/03/23 Previous Rx's Medication Instructions Recorded acetaminophen 500 mg tablet 500 mg PO Q6H PRN pain #14 tabs 07/24/22 apixaban 5 mg tablet (Eliquis) 5 mg PO BID #60 tabs 08/28/22 nicotine 14 mg/24 hr daily 14 mg transdermal DAILY #30 ea 08/28/22 transdermal patch Allergies Allergy/AdvReac Type Severity Reaction Status Date / Time No Known Allergies Allergy Mild NONE Verified 08/19/23 10:36 Review of Systems 2 Constitutional: Constitutional: Denies body ache(s), Denies chills, Denies fever(s) and Reports weight loss Eyes: Eyes: Denies blurry vision ENT: Denies sinus pain and Denies sore throat Cardiovascular: Cardiovascular: Denies chest pain and Denies dyspnea Respiratory: Respiratory: Denies cough and Denies dyspnea Gastrointestinal: Gastrointestinal: Denies abdominal pain, Denies nausea and Denies vomiting Musculoskeletal: Musculoskeletal: Denies back pain and Denies myalgias Integumentary/Breasts: Skin/Breast: Denies rash PMFSH Past Medical History Medical History Intellectual disability Social History Social History (Updated 08/03/23 @ 14:49 by Evelia Abreu MA) Household Members: None Housing: Apartment Do you presently have visiting nurse or other home services: No Patient Tobacco Use Status: Current someday Tobacco user Tobacco use type: Cigarette Cigarettes Per Day: 10 e-Cigarette/Vaping Use: Currently Using Second Hand Smoke Exposure: Yes Advance Directives: Yes Advance Directives Information Provided: No Advance Directives on File: No service: No Current occupational status: disabled Physical Exam ED Vital Signs: Vital Signs - 24 hr 08/19/23 10:28 08/19/23 12:33 08/19/23 21:35 Temperature 98.9 F 99.2 F 98.3 F Pulse Rate 103 H 105 H 86 Respiratory Rate 16 16 18 Blood Pressure 96/63 96/67 122/88 Pulse Oximetry 100 100 100 Oxygen Delivery Method Room Air Room Air Room Air 08/20/23 01:00 08/20/23 01:00 08/20/23 01:00 Temperature Pulse Rate 89 93 104 H Respiratory Rate Blood Pressure 130/90 H 102/75 83/53 L Pulse Oximetry Oxygen Delivery Method BMI result Body Mass Index 18.2 Const General: healthy appearing, comfortable, no acute distress, alert and awake Nutritional Appearance: thin and underweight Orientation/consciousness: patient oriented x3 HENMT Head: Yes normocephalic and Yes atraumatic Throat: Yes posterior oropharynx normal Eyes Eyelids: Yes eyelids normal Conjunctivae: conjunctivae normal Sclerae: sclerae normal Corneas: corneas normal Pupils: Equal, round and reactive pupils present EOM: EOMs intact bilaterally Neck Neck: Yes full ROM Resp Effort & Inspection: normal respiratory effort, able to speak in complete sentences, no audible wheezes and not labored Auscultation: clear to auscultation bilaterally Cardio Rate: regular rate Rhythm: regular rhythm GI Inspection: No distended Palpation (GI): Soft to palpation, not firm, nontender, no guarding and not rigid Skin General skin exam: elasticity normal Neuro General: patient oriented x3 Cranial nerves: Yes Equal, round and reactive pupils present and Yes Bilaterally intact EOM present Cognition (Neuro): normal cognition Extrem Other: Moving all extremities well without any obvious deformities Course Course Course Narrative: RME:?58 yo male hx of intellectual disability, current daily smoker, HTN, DM here for evaluation of rhys pain and dizziness x1 wk. [facility] nurse states patient has complained of chest pain and dizziness this past week. while at psychiatrist appointment yesterday he felt dizzy and his BP was noted to be 80/60s. bp noted to be low today prompting nurse to bring him in. denies known sick contacts. BP 96/63 in triage. nontoxic appearing. ambulating w/ steady gait. labs, trop, ekg, dimer ordered. Full HPI, ROS and PE to be performed by the primary ED provider. Reevaluation(s) Reevaluation #1: Patient's workup largely unremarkable, but he was orthostatic, plan for IV fluids and likely discharge Time: 01:30 Medications Administered Discontinued Medications Generic Name Dose Route Start Last Admin Trade Name Freq PRN Reason Stop Dose Admin Sodium Chloride 1,000 mls @ 999 mls/hr 08/20/23 00:15 08/20/23 00:56 Ns IV 08/20/23 01:15 999 mls/hr .Q1H1M ALICIA Administration Medical Decision Making Medical Decision Making [facility] Narrative: 58-year-old male presents for evaluation of intermittent dizziness and weight loss. This has been going on for approximately 6 months. The patient has no other specific complaints. Denies any chest pain, shortness of breath, abdominal pain nausea vomiting, rashes. He is a smoker so I chest x-ray will be ordered to evaluate for concerning lesions. Patient's labs are significant for chronic pancytopenia consistent with his baseline dating back to February of last year. The patient's glucose is elevated but he has a history of diabetes, he has no anion gap and his CO2 is normal at 28. His calcium is low at 7.9, he has a mild transaminitis in his total protein and albumin are both decreased which likely related to malnutrition. The patient has no abdominal pain, tenderness or GI symptoms to warrant advanced imaging at this time. Despite the reported hypotension in the community, the patient's blood pressures have been stable here during his 12 hour stay in the ER Differential Diagnosis Differential Diagnoses: The differential diagnosis associated with the presentation includes Weight loss Dehydration Orthostasis Malignancy Lab Data MDM Lab Attestation statement: I reviewed the patient's lab results. See above 08/19/23 10:48 08/19/23 10:48 Labs: Lab Results 08/19/23 08/19/23 Range/Units 10:48 14:24 WBC 4.4 L (4.8-10.8) X10*3/uL RBC 3.89 L (4.60-5.80) X10*6/uL Hgb 12.4 L (14.0-18.0) g/dl Hct 36.8 L (42.0-52.0) % MCV 94.6 (80.0-98.0) fL MCH 31.9 (27.0-33.0) pg MCHC 33.7 (31.0-36.0) g/dl RDW 15.3 (11.0-16.0) % Plt Count 136 L (160-400) X10*3/uL MPV 11.2 (9.4-12.4) fL Immature Gran % (Auto) 0.2 (0.0-0.4) % Neut % (Auto) 46.0 (45-73) % Lymph % (Auto) 46.3 H (20-40) % Hoke % (Auto) 6.1 (2-11) % Eos % (Auto) 0.0 (0-4) % Baso % (Auto) 1.4 (0-2) % Lymph # (Auto) 2.0 (1.2-4.9) X10*3/uL Hoke # (Auto) 0.3 (0.1-1.2) X10*3/uL Eos # (Auto) 0.0 (0.0-0.4) X10*3/uL Baso # (Auto) 0.1 (0.0-0.2) X10*3/uL Abs Immat Gran (auto) 0.01 (0.00-0.03) X10*3/uL Absolute Neuts (auto) 2.0 (2.0-8.3) x10*3/uL Absolute Nucleated RBC 0.000 (0.0-0.012) X10*3/uL Nucleated RBC % (auto) 0.0 (0.0-0.2) /100WBC PT 12.9 (11.1-13.3) SEC INR 1.1 (0.9-1.1) D-Dimer High Sensitivty 214 NG/ML Sodium 141 (135-145) mmol/L Potassium 4.1 (3.3-5.1) mmol/L Chloride 106 (96-108) mmol/L Carbon Dioxide 28 (22-29) mmol/L Anion Gap 11 L (12-20) BUN 15 (9-16) mg/dL Creatinine 0.72 (0.5-1.4) mg/dL Estim Creat Clear Calc 93.3 Estimated GFR > 60 Random Glucose 156 H (60-115) mg/dL Calcium 7.9 L (8.4-10.2) mg/dL Total Bilirubin 0.5 (0.0-1.0) mg/dL AST 42 H (5-37) U/L ALT 37 (0-40) U/L Alkaline Phosphatase 167 H (39-117) U/L Troponin I High Sens < 2.7 (<3.5-35.0) ng/L Total Protein 5.1 L (6.5-8.0) g/dL Albumin 2.5 L (3.5-5.0) g/dL Independent Interpretation I performed an independent interpretation of an: EKG (Sinus rhythm rate of [address] segment elevations or depressions. Previous EKG is from 2008 with no significant changes) and Plain X-Ray (No focal infiltrates or masses) Discharge Plan Discharge Clinical Impression: Recent weight loss, Orthostatic hypotension Patient Disposition: Home, Self-Care Instructions: Failure to Thrive (ED), Dizziness (ED) Additional Instructions: Your workup in the ER today was reassuring. Your blood pressure when resting was adequate, however you had orthostatic hypotension which is likely indicative of dehydration You were given IV fluids I recommend that you continue to increase fluid intake and follow-up with your primary doctor Take all of your medications as prescribed, follow-up with your primary doctor and return for new or worsening symptoms Prescriptions: No Action acetaminophen 500 mg tablet 500 mg PO Q6H PRN (Reason: pain) Qty: 14 0RF atorvastatin 20 mg tablet 20 mg PO DAILY clonazepam 1 mg tablet 1 mg PO BID metformin 850 mg tablet 850 mg PO BID Hold Instructions: Resume on 08/30/22. docusate sodium 100 mg capsule 100 mg PO DAILY PRN (Reason: Constipation) omeprazole 20 mg capsule,delayed release(DR/EC) 20 mg PO DAILY montelukast 10 mg tablet 10 mg PO QPM nicotine 14 mg/24 hr Patch 24 Hour 14 mg transdermal DAILY Qty: 30 0RF Eliquis 5 mg tablet 5 mg PO BID Qty: 60 0RF Rx Instructions: Take Eliquis 5 mg 2 tablets twice daily for 7 days Then take Eliquis 5 mg 1 tablet twice daily. clonazepam [Klonopin] 1 mg tablet 1 mg PO BID clozapine [Clozaril] 100 mg tablet 200 mg PO QAM
[2023-08-19 14:34] LABS: INTERNATIONAL NORM RATIO 1.1 (0.9-1.1); Prothrombin Time 12.9 SEC (11.1-13.3)
[2023-08-19 14:36] LABS: D Dimer High Sensitivity 214 NG/ML
[2023-08-19 21:35] VITALS: BP 122/88; PULSE 86; RESP 18; TEMP 36.8; O2SAT 100
[2023-08-20] MEDS: 0.9 % Sodium Chloride 1,000 ML 999 ML IV (00:56)
[2023-08-20 01:00] VITALS: BP 102/75; BP 130/90; BP 83/53; PULSE 104; PULSE 89; PULSE 93
[2023-08-20 03:07] VITALS: BP 115/82; PULSE 95; RESP 18; TEMP 36.4; O2SAT 95
== END 2023-08-20 02:30 | disposition home or self-care (01) ==
PROVIDERS: Nurse Practitioner Family; Physician Assistant Medical; Emergency Provider Emergency Medicine; PCP Internal Medicine Geriatric Medicine
DX: I95.1 Orthostatic hypotension (principal); R63.4 Abnormal weight loss; E11.9 Type 2 diabetes mellitus without complications; I10 Essential (primary) hypertension; F17.200 Nicotine dependence, unspecified, uncomplicated; Z86.718 Personal history of other venous thrombosis and embolism; Z79.01 Long term (current) use of anticoagulants
CPT/HCPCS: 36415; 71046; 80053; 84484; 85025; 85379; 85610; 93005; 99284

== ENCOUNTER → 2023-08-19 10:43 | Outpatient (BNV) | payer MEDICAID, SELFPAY | PROVIDERS: PCP Internal Medicine Geriatric Medicine; Visit Provider Internal Medicine Cardiovascular Disease | DX: R42 Dizziness and giddiness (principal) | CPT/HCPCS: 93010 ==

== ENCOUNTER 2023-08-20 09:57 | Outpatient (REF) | payer MEDICAID, SELFPAY ==
[2023-08-20 11:48] LABS: Alanine Aminotransferase 36 U/L (0-40); Albumin Level 2.4 g/dL (3.5-5.0); Alkaline Phosphatase 160 U/L (39-117); Anion Gap 11 (12-20); Aspartate Amino Transferase 39 U/L (5-37); Bilirubin Total 0.6 mg/dL (0.0-1.0); Blood Urea Nitrogen 12 mg/dL (9-16); Calcium 8.1 mg/dL (8.4-10.2); Carbon Dioxide 25 mmol/L (22-29); Chloride 109 mmol/L (96-108); Estimated Glomerular Filt Rate > 60; Glucose Random 155 mg/dL (60-115); Potassium 3.9 mmol/L (3.3-5.1); Sodium 141 mmol/L (135-145)
[2023-08-20 12:04] LABS: TSH reflex Free T4 0.97 uIU/mL (0.32-4.0)
[2023-08-24 04:29] LABS: Norclozapine 564 mcg/L (25-400)
[2023-08-24 07:48] LABS: Clozapine (Clozaril) 1574
== END 2023-08-20 09:58 | disposition home or self-care (01) ==
LOC: HO.LAB 09:57
PROVIDERS: Visit Provider Clinical Nurse Specialist Psychiatric/Mental Health, Adult
DX: Z79.899 Other long term (current) drug therapy (principal)
CPT/HCPCS: 36415; 80053; 80159; 84443

== ENCOUNTER 2023-08-26 10:23 | Outpatient (REF) | payer MEDICAID, SELFPAY ==
[2023-08-30 23:39] LABS: Clozapine (Clozaril) 207 mcg/L; Norclozapine 185 mcg/L (25-400)
== END 2023-08-26 10:24 | disposition home or self-care (01) ==
LOC: HO.LAB 10:23
PROVIDERS: PCP Internal Medicine Geriatric Medicine; Visit Provider Clinical Nurse Specialist Psychiatric/Mental Health, Adult
DX: Z79.899 Other long term (current) drug therapy (principal)
CPT/HCPCS: 36415; 80159

== ENCOUNTER 2023-08-31 09:41 | Outpatient (REF) | payer MEDICAID, SELFPAY ==
--- NOTE | ~2023-08-31 | US_ITS ---
EXAMINATION: US ABDOMEN COMPLETE CLINICAL INFORMATION: Unspecified abdominal pain. COMPARISON: CT abdomen and pelvis 06/28/2023. TECHNIQUE: Real-time imaging of the abdominal viscera. FINDINGS: PANCREAS: Normal. ABDOMINAL AORTA: There are atherosclerotic calcifications. The proximal, mid and distal segments are nonaneurysmal. INFERIOR VENA CAVA: Visualized portions are normal. LIVER: The liver is normal in size. The liver contour is normal. There is diffuse increased liver parenchymal echogenicity. No focal hepatic lesion. There is no intrahepatic biliary duct dilatation seen. GALLBLADDER: The gallbladder appears contracted without evidence of stones, sludge, wall thickening or pericholecystic fluid. A 3 mm nonmobile polyp is seen. COMMON BILE DUCT: Normal in caliber measuring 0.3 cm in diameter. RIGHT KIDNEY: Normal. No hydronephrosis. No renal calculi or focal parenchymal lesions. The kidney measures 9.4 cm in maximum dimension. LEFT KIDNEY: Normal. No hydronephrosis. No renal calculi or focal parenchymal lesions. The kidney measures 9.7 cm in maximum dimension. SPLEEN: The spleen measures 5.6 cm in maximum dimension. FREE FLUID: None. US/US abdomen complete IMPRESSION: 1. There is generalized increase in hepatic echotexture, consistent with fatty infiltration or hepatocellular disease. Please correlate clinically. No focal hepatic mass or intrahepatic biliary dilatation is seen. 2. A 3 mm nonmobile gallbladder polyp is incidentally noted.
== END 2023-08-31 09:42 | disposition home or self-care (01) ==
LOC: HO.US 09:41
PROVIDERS: PCP Internal Medicine Geriatric Medicine; Visit Provider Nurse Practitioner Family
DX: R10.9 Unspecified abdominal pain (principal)
CPT/HCPCS: 76700

== ENCOUNTER 2023-09-02 12:27 | Outpatient (AMB) | payer MEDICAID, SELFPAY ==
--- NOTE | 2023-09-02 12:41 | MHC.OFFVIS ---
Vital Signs 09/02/23 12:52 Weight 127 lb 13.89 oz BP 83/53 L Blood Pressure Location Lt brachial Position Sitting Pulse 107 H Intake Visit Reasons: 3 week follow up Intake Note: Jesús presents in the office as a 3 week follow up. CC: He had an ultrasound done recently so here for the results. Investment Strategist Required: No Allergies No Known Allergies Allergy (Mild, Verified 09/10/23 12:59) NONE HPI HPI 3 week follow up: Details: LAST VISIT: Weight loss, unintentional Anemia Perirectal adhesions Plan Patient is very hyper focused on his rectal pain. After exam noted adhesion on his coccyx area not close to his rectum. Patient will be sent for evaluation by General surgery. Patient will continue taking Colace daily. Will send her for abdominal ultrasound, more lab work. He will return in 3 weeks and we will discuss going for colonoscopy. In the past patient has refused colonoscopy. Was sent for colonoscopy by his PCP 1 year ago. Patient never had colonoscopy in the past. Patient was encouraged to drink protein shakes in between meals. Both patient and his structural worker are agreeable to plan of care and verbalizes understanding of instructions. They were given patient has and all questions answered. ? Thank you for allowing me to participate in his care Orders Orders HIV Ab/Ag Today R79.89 Hemoglobin A1c Today E11.9 IRON PROFILE Today D64.9 Hepatitis A,B,C Profile Today R79.89 Liver Panel Today R74.01 US abdomen complete Today R10.9 Comprehensive Met. Panel Today K21.9 Prealbumin Today D64.9, R63.4 Referrals General Surgery Referral K66.0 TODAY'S VISIT Patient is here today for follow-up and to discuss going for colonoscopy. Patient is here with structural worker. He does not want to go for colonoscopy but is agreeing to do so. Patient reports that he is experiencing chest pain and shortness of breath. History of smoking, diabetes and hypercholesteremia. Patient will need to be evaluated by Cardiology before going for procedure. Has not seen citizenship instructor yet. Denies melena, hematochezia. Patient denies any nausea or vomiting. Denies any dyspepsia, dysphagia or odynophagia. Patient is on omeprazole daily [facility] Medical History (Updated 09/10/23 @ 16:44 by Dominguez Rendon MD) Diabetes Schizophrenia Skin lesions Intellectual disability Social History (Updated 09/10/23 @ 12:58 by Kike Everett) Household Members: None Housing: Apartment Do you presently have visiting nurse or other home services: No Alcohol intake: never Patient Tobacco Use Status: Current someday Tobacco user Tobacco use type: Cigarette e-Cigarette/Vaping Use: Currently Using Second Hand Smoke Exposure: Yes Use of substances other than those prescribed or required for medical reasons: No Have you been hit, kicked, punched, or otherwise hurt by someone within the past year? If so, by whom?: No Do you feel safe in your current relationship?: Yes Do you have thoughts of harming others: None Do you have a plan to hurt others: No Plan service: No Current occupational status: disabled Review of Systems Const Denies weight gain and Denies weight loss ENT Reports no additional complaints, Denies dysphagia and Denies odynophagia Card Reports no additional complaints Resp Reports no additional complaints GI Denies abdominal pain, Denies belching, Denies melena, Denies bloating, Denies change in bowel habits, Denies dysphagia, Denies excessive flatus, Denies dyspepsia, Denies heartburn, Denies diarrhea, Denies loose stools, Denies nausea, Denies odynophagia and Denies vomiting Reports no additional complaints Musc Reports no additional complaints Neuro Reports no additional complaints Psych Reports no additional complaints Endo Reports no additional complaints Physical Exam Vital Signs: Last Vital Signs Pulse 107 H 09/02/23 12:52 BP 83/53 L 09/02/23 12:52 Const General: no acute distress Nutritional Appearance: underweight Orientation/consciousness: oriented to person and oriented to place Resp Effort & Inspection: normal respiratory effort, able to speak in complete sentences, no tracheal deviation and symmetric chest movement Auscultation: clear to auscultation bilaterally Cardio Rate: regular rate GI Inspection: No distended Palpation (GI): Soft to palpation, not firm, nontender and No hepatosplenomegaly present Auscultation: normal bowel sounds Rectal Exam - Male: Yes other (Coccyx Adhesions) General: Yes no CVA tenderness Back/Spine/Pelvis Back: no CVA tenderness Skin General skin exam: elasticity normal, turgor normal and dry skin Neuro General: oriented to person and oriented to place Psych Appearance: grossly normal Results Reviewed Results Reviewed: Laboratory Tests 08/03/23 08/19/23 08/20/23 15:36 10:48 10:15 RBC 3.89 L Hgb 12.4 L Hct 36.8 L AST 39 H ALT 36 Alkaline Phosphatase 160 H Total Protein 5.0 L Albumin 2.4 L TSH 0.97 Hepatitis A IgM Ab Nonreactive Hep Bs Antigen Negative Hep Bs Antibody NONREACTIVE Hep B Core Total Ab Nonreactive Hepatitis C Ab (EIA) Nonreactive HIV 1&2 Ab/P24 Ag 4thGn Nonreactive Assessment & Plan Assessment & Plan (1) Weight loss, unintentional: Code(s): R63.4 - Abnormal weight loss (2) Anemia: Code(s): D64.9 - Anemia, unspecified Qualifiers: Anemia type: iron deficiency Iron deficiency anemia type: unspecified iron deficiency Qualified Code(s): D50.9 - Iron deficiency anemia, unspecified (3) Perirectal adhesions: Code(s): K66.0 - Peritoneal adhesions (postprocedural) (postinfection) Plan Referral to Cardiology for shortness of breath and chest pressure and dietitian for unintentional weight loss. Patient is unable to focus on instructions of prepping. We will schedule colonoscopy today and patient will schedule appointment with glove turner to get cleared. Discussed with structural worker about getting patient protein shakes with 20-30 g of protein. We did discuss about patient has no patient's and does not like to drink large volumes of liquid. Will try Dulcolax tablets with magnesium citrate. Patient will return in 2 months to go over the prep again and to make sure that he is cleared for the procedure patient is agreeing to this plan. coating line worker is verbalizing understanding of instructions. She was given the opportunity to ask questions and all questions answered. Thank you for allowing me to participate in his care Orders: Referrals Mail Handler Equipment Operator Nutrition Referral R63.4 - Abnormal weight loss Cardiology Referral Z01.810 - Encounter for preprocedural cardiovascular examination Medications: New bisacodyl (Dulcolax (bisacodyl)) take 4 tabs at noon the day before your colonoscopy 20 mg (4 x 5 mg) PO ONCE 4 tabs 0RF 1 day Z12.11 - Encounter for screening for malignant neoplasm of colon magnesium citrate 150 mL PO DAILY 296 mL 2RF constipation Z12.11 - Encounter for screening for malignant neoplasm of colon
[2023-09-02 12:52] VITALS: BP 83/53; PULSE 107
== END 2023-09-02 13:30 | disposition home or self-care (01) ==
PROVIDERS: PCP Internal Medicine Geriatric Medicine; Visit Provider Nurse Practitioner Family
DX: R63.4 Abnormal weight loss (principal); D50.9 Iron deficiency anemia, unspecified; K66.0 Peritoneal adhesions (postprocedural) (postinfection)
CPT/HCPCS: 99213

== ENCOUNTER → 2023-09-02 12:27 | Outpatient (BNVA) | payer MEDICAID, SELFPAY | PROVIDERS: PCP Internal Medicine Geriatric Medicine; Visit Provider Nurse Practitioner Family | DX: R63.4 Abnormal weight loss (principal); K66.0 Peritoneal adhesions (postprocedural) (postinfection); D50.9 Iron deficiency anemia, unspecified | CPT/HCPCS: 99212 ==

== ENCOUNTER 2023-09-08 14:36 | Outpatient (AMB) | payer MEDICAID, SELFPAY ==
--- NOTE | 2023-09-08 15:16 | A.OFFVIS_ITS ---
Intake Vital Signs 09/08/23 15:25 Weight 132 lb BP 106/75 Blood Pressure Location Rt brachial Position Sitting Pulse 94 Intake Visit Reasons: Peritoneal adhesions post procedure & infection Intake Note: This patient presents for an assessment for Peritoneal adhesions post procedure & infection. Pt c/o; reports non healing wound. 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 Required: No Accompanied by: Isara[facility] Allergies No Known Allergies Allergy (Mild, Verified 09/08/23 15:26) NONE Medication List - Last Reconciled 09/08/23 by Pasha Farris MD acetaminophen 500 mg PO Q6H PRN albuterol sulfate 90 mcg/actuation (Ventolin HFA) 2 puffs inhalation Q6H PRN ammonium lactate 12% topical BEDTIME apixaban (Eliquis) 5 mg PO BID atorvastatin 20 mg PO DAILY bisacodyl (Dulcolax (bisacodyl)) 20 mg (4 x 5 mg) PO ONCE 1 day clonazepam (Klonopin) 1 mg PO BID clozapine (Clozaril) 200 mg PO QAM docusate sodium 100 mg PO DAILY PRN magnesium citrate 150 mL PO DAILY metformin 850 mg PO BID montelukast 10 mg PO QPM nicotine 14 mg transdermal DAILY omeprazole 20 mg PO DAILY polyethylene glycol 3350 (Gavilax) 17 grams PO QAM HPI Peritoneal adhesions post procedure & infection HPI Details He says that he is here to have lesions on the area of the tailbone removed. He said he has had this for several years. He says this bothers him when he is lying down in bed because of pain and discomfort. He denies any drainage. The patient apparently lives alone but is being cared for by a mental health counselor because of behavioral health issues. [facility] Medical History (Updated 09/08/23 @ 15:35 by Pasha Farris MD) Skin lesions Intellectual disability Social History Household Members: None Housing: Apartment Do you presently have visiting nurse or other home services: No Alcohol intake: never Patient Tobacco Use Status: Current someday Tobacco user Tobacco use type: Cigarette Cigarettes Per Day: 10 e-Cigarette/Vaping Use: Currently Using Second Hand Smoke Exposure: Yes service: No Current occupational status: disabled Review of Systems Const Denies chills and Denies fever(s) Card Denies chest pain, Denies dyspnea and Denies dyspnea on exertion Resp Denies cough, Denies dyspnea and Denies dyspnea on exertion GI Denies hematochezia and Denies change in bowel habits Denies hematuria and Denies difficulty urinating Musc Denies back pain and Denies limited range of motion Neuro Denies focal weakness and Denies convulsions Psych Denies depression and Denies mood swings Physical Exam Vital Signs: Last Vital Signs Pulse 94 09/08/23 15:25 BP 106/75 09/08/23 15:25 Const General: comfortable and no acute distress Orientation/consciousness: patient oriented x3 Neck Neck: Yes no lymphadenopathy Resp Auscultation: clear to auscultation bilaterally Cardio Rhythm: regular rhythm GI Palpation (GI): Soft to palpation, nontender and no guarding Back/Spine/Pelvis Other: At the sacrococcygeal area - 2 elevated pigmented skin lesions, well-defined, about 5 mm each in diameter, these 2 lesions are adjacent to each other, Neuro General: patient oriented x3 Assessment & Plan Assessment & Plan (1) Skin lesions: Code(s): L98.9 - Disorder of the skin and subcutaneous tissue, unspecified Plan: He has skin lesions on the sacrococcygeal area as described above. He wants to proceed with excision. I explained the technique of excision under local anesthesia. I reviewed the risks including but not limited to bleeding and i nfections, as well as the benefits and alternatives. He understands and wants to proceed He will be scheduled for excision of these area in the office under local anesthesia. Coding Level of Care Code Est Pt Level 3 (74747) Diagnoses Skin lesions L98.9
[2023-09-08 15:25] VITALS: BP 106/75; PULSE 94
== END 2023-09-08 15:32 | disposition home or self-care (01) ==
PROVIDERS: PCP Internal Medicine Geriatric Medicine; Referring Provider Internal Medicine Geriatric Medicine; Visit Provider Surgery
DX: L98.9 Disorder of the skin and subcutaneous tissue, unspecified (principal)
CPT/HCPCS: 99213

== ENCOUNTER → 2023-09-08 14:36 | Outpatient (BNVA) | payer MEDICAID, SELFPAY | PROVIDERS: PCP Internal Medicine Geriatric Medicine; Visit Provider Surgery | DX: L98.9 Disorder of the skin and subcutaneous tissue, unspecified (principal) | CPT/HCPCS: 99212 ==

== ENCOUNTER → 2023-09-10 13:00 | Outpatient (BNV) | payer MEDICAID, SELFPAY | PROVIDERS: PCP Internal Medicine Geriatric Medicine; Referring Provider Internal Medicine Geriatric Medicine; Visit Provider Internal Medicine Medical Oncology | DX: D64.9 Anemia, unspecified (principal) | CPT/HCPCS: 99204; 99213 ==

== ENCOUNTER 2023-10-05 09:55 | Outpatient (REF) | payer MEDICAID, SELFPAY ==
[2023-10-05 10:08] LABS: MANUAL DIFF FLAG NO
[2023-10-05 11:16] LABS: Basophils Absolute Auto 0.1 X10*3/uL (0.0-0.2); Basophils Percent Auto 1.2 % (0-2); Hematocrit 37.3 % (42.0-52.0); Hemoglobin 12.2 g/dl (14.0-18.0); Lymphocytes Absolute Auto 2.4 X10*3/uL (1.2-4.9); Lymphocytes Percent Auto 55.9 % (20-40); Mean Corpuscular HGB Conc 32.7 g/dl (31.0-36.0); Mean Corpuscular Hemoglobin 31.6 pg (27.0-33.0); Mean Corpuscular Volume 96.6 fL (80.0-98.0); Mean Platelet Volume 11.4 fL (9.4-12.4); Monocytes Absolute Auto 0.4 X10*3/uL (0.1-1.2); Monocytes Percent Auto 9.3 % (2-11); Neutrophils Absolute Auto 1.4 x10*3/uL (2.0-8.3); Neutrophils Percent Auto 33.6 % (45-73); Platelet Count 180 X10*3/uL (160-400); Red Blood Count 3.86 X10*6/uL (4.60-5.80); White Blood Count 4.3 X10*3/uL (4.8-10.8)
== END 2023-10-05 09:56 | disposition home or self-care (01) ==
LOC: HO.LABR 09:55
PROVIDERS: PCP Internal Medicine Geriatric Medicine; Visit Provider Clinical Nurse Specialist Psychiatric/Mental Health, Adult
DX: Z79.899 Other long term (current) drug therapy (principal)
CPT/HCPCS: 36415; 85025

== ENCOUNTER 2023-10-13 10:02 | Outpatient (REF) | payer MEDICAID, SELFPAY ==
[2023-10-13 10:13] LABS: MANUAL DIFF FLAG NO
[2023-10-13 10:39] LABS: Basophils Absolute Auto 0.1 X10*3/uL (0.0-0.2); Basophils Percent Auto 1.3 % (0-2); Hematocrit 38.1 % (42.0-52.0); Hemoglobin 12.6 g/dl (14.0-18.0); Imm Gran Abs Auto 0.02 X10*3/uL (0.00-0.03); Imm Gran Pct Auto 0.3 % (0.0-0.4); Lymphocytes Absolute Auto 2.8 X10*3/uL (1.2-4.9); Lymphocytes Percent Auto 45.2 % (20-40); Mean Corpuscular HGB Conc 33.1 g/dl (31.0-36.0); Mean Corpuscular Hemoglobin 31.9 pg (27.0-33.0); Mean Corpuscular Volume 96.5 fL (80.0-98.0); Mean Platelet Volume 10.9 fL (9.4-12.4); Monocytes Absolute Auto 0.4 X10*3/uL (0.1-1.2); Monocytes Percent Auto 6.8 % (2-11); Neutrophils Absolute Auto 2.9 x10*3/uL (2.0-8.3); Neutrophils Percent Auto 46.4 % (45-73); Platelet Count 228 X10*3/uL (160-400); Red Blood Count 3.95 X10*6/uL (4.60-5.80); Red Cell Distribution Width 13.6 % (11.0-16.0); White Blood Count 6.2 X10*3/uL (4.8-10.8)
== END 2023-10-13 10:03 | disposition home or self-care (01) ==
LOC: HO.LABR 10:02
PROVIDERS: Visit Provider Clinical Nurse Specialist Psychiatric/Mental Health, Adult
DX: Z79.899 Other long term (current) drug therapy (principal)
CPT/HCPCS: 36415; 85025; 97802

== ENCOUNTER 2023-10-13 10:21 | Outpatient (AMB) | payer MEDICAID, SELFPAY ==
[2023-10-13 10:30] VITALS: BMI 19.0
--- NOTE | 2023-10-13 10:30 | MHC.AMNUTRGE ---
VS Expanded 10/13/23 10:30 10/13/23 11:38 Height 5 ft 10 in 5 ft 10 in Weight 132 lb 11.492 oz 133 lb BMI 19.0 19.1 Intake Visit Reasons: Abnormal Weightloss/CONFIRMED Allergies No Known Allergies Allergy (Mild, Verified 09/10/23 12:59) NONE Nutrition Presentation Details: Pt presents for MNT for underweight . Pt was referred by GI specialist Lucyna. Samuels. Pt is accompanied by staff from [facility] [place] Pt reports having lack of appetite and feeling full fast, he reports sometimes having one meal a day distributed throughout the day. Meals may consist of rice/aguila/chicken or bowl of cereal with whole milk and coffee with cream and sugar Pt reports doing better with liquids due to feeling tired. Pt has hx of anemia (labs on 08/2023 : tot protein 5.4, albumin 2.8mg/dl, H/H 12.2/36.8) Wt hx 199 lbs in 08/2022 Pt has no teeth, needs to choose soft foods Pt reports having enough money for foods, has fam member that lives close by and offers foods but feels tired and lack of appetite smokes 1 1/2 ppd , coughing has no dentures = for years BS Monitoring Most Recent Diabetes Results: Creatinine 0.70 mg/dL (0.5-1.4) 09/10/23 Blood Urea Nitrogen 11 mg/dL (9-16) 09/10/23 Sodium 142 mmol/L (135-145) 09/10/23 Potassium 4.1 mmol/L (3.3-5.1) 09/10/23 Chloride 109 mmol/L (96-108) H 09/10/23 Carbon Dioxide 28 mmol/L (22-29) 09/10/23 Calcium 8.3 mg/dL (8.4-10.2) L 09/10/23 AST 34 U/L (5-37) 09/10/23 ALT 35 U/L (0-40) 09/10/23 Total Protein 5.4 g/dL (6.5-8.0) L 09/10/23 Albumin 2.8 g/dL (3.5-5.0) L 09/10/23 ZGA-Ixeusow-Kw.Jeor Equation Height: 5 ft 10 in Weight: 133 lb Resting Metabolic Rate: 1443.40 Diagnosis Nutrition problem #1: unintended weight loss As related to (etiology) #1: decreased appetite, inadequate oral intake, increased energy needs and increased PRO needs As evidenced by (sign/symptom) #1: poor PO intake and wasting (Pt underweight BMI at 19 today (approx 60 lbs wt loss in a year's time, with anemia, and coughing) ) Monitoring/Goals Nutrition problem monitoring: total PRO intake and weight Outcome progress: verbalized understanding Learning/Education Readiness to learn: poor PFSH Medical History (Updated 10/13/23 @ 11:43 by Krystal Diaz, RD, LDN) Diabetes Schizophrenia Skin lesions Intellectual disability Social History (Updated 09/10/23 @ 12:58 by Kike Everett) Household Members: None Housing: Apartment Do you presently have visiting nurse or other home services: No Alcohol intake: never Patient Tobacco Use Status: Current someday Tobacco user Tobacco use type: Cigarette e-Cigarette/Vaping Use: Currently Using Second Hand Smoke Exposure: Yes service: No Current occupational status: disabled Assessment & Plan Assessment & Plan (1) Abnormal weight loss: Code(s): R63.4 - Abnormal weight loss Category: Medical Plan: Recommend prescription for high protein ensure 3 a day which will provide a total of 480 calories and 48 g of protein) Pt prefers chocolate flavor Patient Instructions: Have 3 meals a day choose soft foods, easy to eat (cereal with whole milk, pasta/ground meat/mashed root vegetables and ground meat/fish/eggs Breakfast: bowl of cereal with whole milk and banana snack: protein shake and crackers Lunch: ground beef or tuna with olive oil /valenzuela and potato or mashed root vegetables, glass of whole milk snack: protein shake and peanut butter sandwich dinner: rice /beans and ground chicken or beef or pork, glass of whole milk snack: protein shake and pudding or donut Coding Level of Care Code Nutr Indiv Intake (97217) Diagnoses Abnormal weight loss R63.4 Time Spent (min) 30
[2023-10-13 11:38] VITALS: BMI 19.1
== END 2023-10-13 10:59 | disposition home or self-care (01) ==
PROVIDERS: PCP Internal Medicine Geriatric Medicine; Referring Provider Dietitian, Registered; Visit Provider Dietitian, Registered
DX: R63.4 Abnormal weight loss (principal)

== ENCOUNTER 2023-10-19 14:29 | Outpatient (AMB) | payer MEDICAID, SELFPAY ==
--- NOTE | 2023-10-19 14:46 | MHC.OFFVIS ---
Vital Signs 10/19/23 14:47 Height 5 ft 10 in Weight 134 lb 14.766 oz BMI 19.4 BP 82/62 L Blood Pressure Location Lt brachial Position Sitting Pulse 98 Pulse Source Monitor Intake Visit Reasons: pre-op/robbi/ Doper Required: No Lithographic Camera Operator: Lithographic Camera Operator Present Allergies No Known Allergies Allergy (Mild, Verified 10/25/23 11:43) NONE Medication List - Last Reconciled 10/19/23 by EMILI Gilbert acetaminophen 500 mg PO Q6H PRN albuterol sulfate 90 mcg/actuation (Ventolin HFA) 2 puffs inhalation Q6H PRN ammonium lactate 12% 12 appl topical BEDTIME apixaban (Eliquis) 5 mg PO BID atorvastatin 20 mg PO DAILY clonazepam (Klonopin) 1 mg PO BID clozapine (Clozaril) 200 mg PO QAM docusate sodium 100 mg PO DAILY PRN food supplemt, lactose-reduced (Ensure Plus High Protein) 1 ea PO TID magnesium citrate 150 mL PO DAILY metformin 850 mg PO BID montelukast 10 mg PO QPM nicotine 14 mg transdermal DAILY omeprazole magnesium (Prilosec OTC) 20 mg PO DAILY HPI HPI pre-op/robbi/: Details: Jesús is a 58-year-old male with past medical history of hypertension, diabetes, smoking, GERD, DVT, now on Eliquis, weight loss who [place] [facility] [place] with light[place]ness. He was found to have low blood pressures and orthostatic hypotension. He was treated with IV fluids. He was referred to Cardiology in follow-up. Today he presents for cardiac consultation. He denies any history of heart disease. He tells me that he continues to have some lightheadedness at times. He has not had any presyncope, syncope, falls. He is vague reports of chest area discomfort. No clear anginal sounding symptom. He has shortness of breath with activity. No PND, orthopnea or edema. Lives on the 3rd floor and has to climb the stairs to his twice daily. He has history of schizophrenia and a care provider is with him at this visit. He currently smokes half a pack of cigarettes a day and has been smoking since age 20. Denies alcohol use. No illicit drug use. No known family history of heart disease. He has had significant weight loss over the last year and will need to go undergo a colonoscopy in the near future. He follows with hematology for normochromic, normocytic anemia. [facility] Medical History Diabetes Schizophrenia Skin lesions Intellectual disability Social History Household Members: None Housing: Apartment Do you presently have visiting nurse or other home services: No Alcohol intake: never Patient Tobacco Use Status: Current someday Tobacco user Tobacco use type: Cigarette e-Cigarette/Vaping Use: Currently Using Second Hand Smoke Exposure: Yes service: No Current occupational status: disabled Review of Systems Const All systems reviewed & are unremarkable except as noted in HPI and below ENT Reports dizziness Card Reports chest pain, Denies chest pain at rest, Denies chest pain with activity, Denies rapid heart rate, Denies pedal edema, Denies edema, Denies leg edema, Denies lightheadedness, Denies palpitations, Denies dyspnea, Reports dyspnea on exertion and Denies orthopnea Resp Denies cough, Denies dyspnea and Reports dyspnea on exertion GI Denies hematochezia and Denies change in stool character Musc Denies abnormal gait, Denies limited range of motion, Denies muscle cramps, Denies muscle weakness, Denies numbness, Denies radiating pain into limb, Denies stiffness and Denies tingling Neuro Denies abnormal gait, Reports dizziness, Denies numbness and Denies tingling Endo Denies palpitations Physical Exam Vital Signs: Last Vital Signs Pulse 98 10/19/23 14:47 BP 82/62 L 10/19/23 14:47 BMI result Body Mass Index 19.4 Const General: cooperative, healthy appearing, comfortable and no acute distress Orientation/consciousness: patient oriented x3 Neck Neck: Yes normal visual inspection and Yes no JVD Resp Effort & Inspection: normal respiratory effort Auscultation: clear to auscultation bilaterally, no crackles, no rales, no rhonchi and no wheezes Cardio Jugular venous distension: no JVD Rate: regular rate Rhythm: regular rhythm Heart sounds: S1 normal heart sound present, S2 normal heart sound present, no gallops, no murmurs and no rubs Skin General skin exam: no rashes or lesions noted Neuro General: patient oriented x3 Extrem General: Yes normal to inspection, No no pedal edema and No calf tenderness Psych Appearance: grossly normal Mental Status: mental status grossly normal Speech and movement: Normal speech and movement present Office Procedures EKG Details: Today, read by me, normal sinus rhythm, right axis deviation, rate 98, QTC 421 milliseconds [id number], Complete Assessment & Plan Assessment & Plan (1) Chest discomfort: Code(s): R07.89 - Other chest pain Category: Medical Plan: Vague reports of chest discomfort. He does have shortness of breath with exertion. EKG done today shows sinus rhythm with right axis deviation, rate 98. Cardiac risk factors of hypertension, diabetes, smoking. No known history of heart disease. Will evaluate for ischemia with exercise nuclear stress test. He states he will be able to walk on a treadmill. He does sign his own permits according to his care provider. Will check an echocardiogram to assess for any structural heart disease. Signs and symptoms of angina reviewed with him. Cardiology follow-up in 4-6 weeks, sooner if needed. (2) Shortness of breath: Code(s): R06.02 - Shortness of breath Category: Medical Plan: As above. Could be anginal equivalent. (3) Hypotension: Code(s): I95.9 - Hypotension, unspecified Category: Medical Plan: Patient has low blood pressure at this visit. He recently was in the ER with lightheadedness, and was found to have orthostatic hypotension. He does have a blood pressure drop with standing today as well. In talking with him it does not seem that he is drinking enough liquids recently. Has had significant weight loss over the last year and needs to increase his p.o. intake. He also is on Klonopin and Clozaril each of which can cause orthostatic hypotension. Will forward this note to his PCP. Reviewed my findings with him. Informed that he needs to increase fluid intake up to 64 oz daily. Use caution when going sitting to standing. If he becomes lightheaded with standing he is to sit or lay down. Avoid medications that can lower blood pressure. ED care if needed for worsening symptoms. (4) Preop cardiovascular exam: Code(s): Z01.810 - Encounter for preprocedural cardiovascular examination Category: Medical Plan: Preop for colonoscopy. Cardiac testing planned as above including echocardiogram and exercise nuclear stress test. He is hypotensive and I am hoping that increasing his fluid intake will help with this problem. Plan to update this note when test results are available. If colonoscopy is urgently needed for his weight loss then let this provider know. Plan Time spent on chart review, documentation, interview and assessment Orders: Orders CA lexiscan stress w nayla 10/19/23 I95.9 - Hypotension, unspecified, R06.02 - Shortness of breath, R07.89 - Other chest pain CA echo transthoracic complete 10/19/23 R06.02 - Shortness of breath, R07.89 - Other chest pain NM cardiolite stress test 10/19/23 R06.02 - Shortness of breath, R07.89 - Other chest pain Coding Level of Care Code New Pt Level 3 (20085) Diagnoses Chest discomfort R07.89 Shortness of breath R06.02 Hypotension I95.9 Preop cardiovascular exam Z01.810 CPT Codes EKG - CPT: 60939-[id number], Complete ([id number]) Time Spent (min) 28
[2023-10-19 14:47] VITALS: BP 82/62; PULSE 98; BMI 19.4
== END 2023-10-19 15:43 | disposition home or self-care (01) ==
PROVIDERS: PCP Internal Medicine Geriatric Medicine; Visit Provider Nurse Practitioner Family
DX: R07.89 Other chest pain (principal); R06.02 Shortness of breath; I95.9 Hypotension, unspecified; Z01.810 Encounter for preprocedural cardiovascular examination
CPT/HCPCS: 93010; 99203

== ENCOUNTER → 2023-10-19 14:29 | Outpatient (BNVA) | payer MEDICAID, SELFPAY | PROVIDERS: PCP Internal Medicine Geriatric Medicine; Visit Provider Nurse Practitioner Family | DX: Z01.810 Encounter for preprocedural cardiovascular examination (principal); R07.89 Other chest pain; R06.02 Shortness of breath; I95.9 Hypotension, unspecified | CPT/HCPCS: 93005; 99212 ==

== ENCOUNTER 2023-10-25 11:15 | Outpatient (AMB) | payer MEDICAID, SELFPAY ==
--- NOTE | 2023-10-25 11:31 | A.OFFVIS_ITS ---
Vital Signs 10/25/23 11:45 Height 5 ft 10 in Weight 140 lb 3.424 oz BMI 20.1 BP 96/68 Blood Pressure Location Lt brachial Position Sitting Pulse 118 H Pulse Source Pulse Oximeter Pulse Oximetry (%) 98 Oxygen Delivery Method Room Air Intake Visit Reasons: 2 month f/u Intake Note: Jesús presents in office today for 2 mos FUV. CC: pt reports that he did have his cardiology appt as directed. Pt was cleared for colo by provider. Pt has also been increasing his fluid intake and salt intake in order to combat his hypotension. Pt has not been drinking his nutrition shakes as directed however as he does not care for them. His cotton factor states that he has gained 2 lbs as of his last office visit. Grader Green Meat Required: No Allergies No Known Allergies Allergy (Mild, Verified 10/25/23 11:43) NONE HPI HPI 2 month f/u: Details: LAST VISIT Weight loss, unintentional Anemia Perirectal adhesions Plan Referral to Cardiology for shortness of breath and chest pressure and dietitian for unintentional weight loss. Patient is unable to focus on instructions of prepping. We will schedule colonoscopy today and patient will schedule appointment with supervisor coremaker to get cleared. Discussed with embroidery worker about getting patient protein shakes with 20-30 g of protein. We did discuss about patient has no patient's and does not like to drink large volumes of liquid. Will try Dulcolax tablets with magnesium citrate. Patient will return in 2 months to go over the prep again and to make sure that he is cleared for the procedure patient is agreeing to this plan. bull wheel worker is verbalizing understanding of instructions. She was given the opportunity to ask questions and all questions answered. ? Thank you for allowing me to participate in his care Orders Referrals Production Ski Repairer Nutrition Referral R63.4 Cardiology Referral Z01.810 Medications New bisacodyl (Dulcolax (bisacodyl)) take 4 tabs at noon the day before your colonoscopy 20 mg (4 x 5 mg) PO ONCE 4 tabs 0RF 1 day Z12.11 magnesium citrate 150 mL PO DAILY 296 mL 2RF constipation Z12.11 TODAY'S VISIT Patient is here today for follow-up. Patient is accompanied by embroidery worker. Patient reports that he has been feeling better. He gained 11 lb in the past 2 months. Patient reports that his mom bought him protein shakes, however he reports that he did not like them. Patient did not fruit picker machine operator ensure that was sent by me 2 weeks ago. Patient denies melena, hematochezia, unintentional weight loss or ribbon like stools. Patient denies any dyspepsia, dysphagia or odynophagia. Patient reports that his appetite has improved and he is eating better. Patient was seen by dietitian. Last week patient was seen by cardiology. Patient will be going for stress testing and ECHO. [facility] Medical History Diabetes Schizophrenia Skin lesions Intellectual disability Social History Household Members: None Housing: Apartment Do you presently have visiting nurse or other home services: No Alcohol intake: never Patient Tobacco Use Status: Current someday Tobacco user Tobacco use type: Cigarette e-Cigarette/Vaping Use: Currently Using Second Hand Smoke Exposure: Yes service: No Current occupational status: disabled Review of Systems Const Denies weight gain and Denies weight loss ENT Reports no additional complaints, Denies dysphagia and Denies odynophagia Card Reports no additional complaints Resp Reports no additional complaints GI Denies abdominal pain, Denies belching, Denies melena, Denies bloating, Denies change in bowel habits, Denies dysphagia, Denies excessive flatus, Denies dyspepsia, Denies heartburn, Denies diarrhea, Denies loose stools, Denies nausea, Denies odynophagia and Denies vomiting Reports no additional complaints Musc Reports no additional complaints Neuro Reports no additional complaints Psych Reports no additional complaints Endo Reports no additional complaints Physical Exam Vital Signs: Last Vital Signs Pulse 118 H 10/25/23 11:45 BP 96/68 10/25/23 11:45 Pulse Ox 98 10/25/23 11:45 Oxygen Delivery Method Room Air 10/25/23 11:45 BMI result Body Mass Index 20.1 Const General: no acute distress Nutritional Appearance: underweight Orientation/consciousness: oriented to person and oriented to place Resp Effort & Inspection: normal respiratory effort, able to speak in complete sentences, no tracheal deviation and symmetric chest movement Auscultation: clear to auscultation bilaterally Cardio Rate: regular rate GI Inspection: No distended Palpation (GI): Soft to palpation, not firm, nontender and No hepatosplenomegaly present Auscultation: normal bowel sounds Rectal Exam - Male: Yes other (Coccyx Adhesions) General: Yes no CVA tenderness Back/Spine/Pelvis Back: no CVA tenderness Skin General skin exam: elasticity normal, turgor normal and dry skin Neuro General: oriented to person and oriented to place Psych Appearance: grossly normal Assessment & Plan Assessment & Plan (1) Weight loss, unintentional: Code(s): R63.4 - Abnormal weight loss (2) Anemia: Code(s): D64.9 - Anemia, unspecified Qualifiers: Anemia type: unspecified type Qualified Code(s): D64.9 - Anemia, unspecified Plan Continue diet high in protein. Hi calorie meals. Continue follow-up with registered dietitian. Avoid dietary triggers and late night snacking. Increase fiber intake and fluid intake. Follow-up in 2 months, sooner on as needed basis. Both patient and his embroidery worker is agreeable to plan of care and verbalizes understanding of instructions. Medications: Refilled food supplemt, lactose-reduced (Ensure Plus High Protein) 1 ea PO TID 237 mL 12RF R63.4 - Abnormal weight loss, R63.6 - Underweight Coding Level of Care Code Est Pt Level 3 (90943) Diagnoses Weight loss, unintentional R63.4 Anemia, unspecified type D64.9 Anemia type: unspecified type Time Spent (min) 30 Comment 20 minutes spent with patient and additional 10 minutes spent reviewing his records.
[2023-10-25 11:45] VITALS: BP 96/68; PULSE 118; O2SAT 98; BMI 20.1
== END 2023-10-25 12:04 | disposition home or self-care (01) ==
PROVIDERS: PCP Internal Medicine Geriatric Medicine; Visit Provider Nurse Practitioner Family
DX: R63.4 Abnormal weight loss (principal); D64.9 Anemia, unspecified
CPT/HCPCS: 99213

== ENCOUNTER → 2023-10-25 11:15 | Outpatient (BNVA) | payer MEDICAID, SELFPAY | PROVIDERS: PCP Internal Medicine Geriatric Medicine; Visit Provider Nurse Practitioner Family | DX: R63.4 Abnormal weight loss (principal); D64.9 Anemia, unspecified | CPT/HCPCS: 99212 ==

== ENCOUNTER 2023-11-03 09:52 | Outpatient (AMB) | payer MEDICAID, SELFPAY ==
[2023-11-03 09:59] VITALS: BMI 19.9
--- NOTE | 2023-11-03 09:59 | MHC.AMNUTRGE ---
VS Expanded 11/03/23 09:59 Height 5 ft 10 in Weight 138 lb 7.205 oz BMI 19.9 Intake Visit Reasons: abnormal weightloss Allergies No Known Allergies Allergy (Mild, Verified 10/25/23 11:43) NONE Nutrition Presentation Details: Pt presents for MNT f/u for unintentional weight loss. Pt presents with staff from [facility] [place] [facility]. Pt reports having tried nutritional supplements and tried 6 of them but then developed stomach pain and does not want to have them anymore. Pt reports he can eat other things (sand , cereal) Pt reports in the morning he has coffee at the program whole milk and sugar, in the past he was having sandw or muffin with it but now he does not have an appetite Noted 4 lbs weight gain since last visit, 3 weeks ago. Per staff, Pt needs encouragement and with encouragement he is eating a little more but staff also reports noticing Pt reducing on his activity (walking less than before ) BS Monitoring Most Recent Diabetes Results: No Data to Display [facility] Medical History Diabetes Schizophrenia Skin lesions Intellectual disability Social History Household Members: None Housing: Apartment Do you presently have visiting nurse or other home services: No Alcohol intake: never Patient Tobacco Use Status: Current someday Tobacco user Tobacco use type: Cigarette e-Cigarette/Vaping Use: Currently Using Second Hand Smoke Exposure: Yes service: No Current occupational status: disabled Assessment & Plan Assessment & Plan (1) Abnormal weight loss: Code(s): R63.4 - Abnormal weight loss Category: Medical Plan: Recommend for PCP to consider appetite stimulant Patient Instructions: Have banana in the morning with your morning coffee with milk and sugar. Have soemthing addittional to have with coffee (sandwich, muffin, banana , crackers with cheese or ham Continue working on including protien in your meals and snack : cheese, eggs, chicken, cereal with milk , oatmeal Have one supplement every other day - Coding Level of Care Code Nutr Indiv Subseq (36491) Diagnoses Abnormal weight loss R63.4 Time Spent (min) 30
== END 2023-11-03 10:23 | disposition home or self-care (01) ==
PROVIDERS: PCP Internal Medicine Geriatric Medicine; Visit Provider Dietitian, Registered
DX: R63.4 Abnormal weight loss (principal)

== ENCOUNTER → 2023-11-03 09:52 | Outpatient (BNVA) | payer MEDICAID, SELFPAY | PROVIDERS: PCP Internal Medicine Geriatric Medicine; Visit Provider Dietitian, Registered | DX: R63.4 Abnormal weight loss (principal) | CPT/HCPCS: 97803 ==

== ENCOUNTER → 2023-11-16 10:12 | Outpatient (REF) | payer MEDICAID, SELFPAY ==
--- NOTE | 2023-11-16 10:16 | CA_ITS ---
Transthoracic Echocardiogram Patient (Last, First, Middle): Jesús Mi A Gender: Male Date of : 1965 Age: 58 Procedure Date: 11/16/2023 Procedure Type: Transthoracic Echocardiogram Location: OP Height: 180.34 cm Weight: 63.5 kg BSA: 1.81 m2 Heart Rate: bpm BP: 90 / 64 mmHg Knife Operator: TO Referring MD: Katie Hernandez NP-[employer] Program Director: Gilberto Serna MD Symptoms: R07.89 - Other chest pain Study Quality: Adequate ECG Rhythm: Sinus Conclusions: - 1. Normal LV ejection fraction 55-60% with normal filling pattern with reduced longitudinal strain 2. Normal cardiac valvular Doppler 3. No gross pericardial effusion Findings Left Ventricle Normal left ventricular size, thickness, and systolic function. The visually estimated ejection fraction is between 55-60%. Spectral Doppler is indicative of a normal filling pattern. Right Ventricle Normal right ventricular cavity size and systolic function. Atria Both atria are normal in size. There is no evidence of interatrial shunt. Aortic Valve Normal aortic valve structure and function. There is no aortic valve stenosis. There is no aortic valve regurgitation. Mitral Valve Normal mitral valve structure and function. There is trace mitral valve regurgitation. There is no mitral valve stenosis. Tricuspid Valve Likely normal tricuspid valve structure and function. Tricuspid regurgitation envelope is inadequate for calculation of right ventricular systolic pressure. Normal right atrial pressure. Great Vessels The pulmonary artery was not well visualized. There is mild dilatation of the ascending aorta measuring 3.70 cm. Venous The inferior vena cava is normal in size and collapses greater than 50% with inspiration. Pericardium/Pleural There is no evidence of pericardial effusion. Prior Study Comparison No prior study available for comparison. Measurements 2D Linear Measurements IVSd: 0.82 0.6-0.9/0.6-1.0 cm LVIDd: 4.25 3.9-5.3/4.2-5.9 cm LVIDd Index: 2.35 2.4-3.2/2.2-3.1 cm/m2 LVIDs: 2.79 2.0-3.6 cm LVPWd: 0.73 0.7-1.1 cm LA Diam: 2.40 2.7-3.8/3.0-4.0 cm LAIDs Index: 1.33 1.5-2.3 cm/m2 LV Mass: 123.82 67-162/88-224 g LV Mass Index: 68.41 43-95/49-115 g/m2 LVOT Diam: 2.20 3.0+(-)1.3 cm 2D Systolic Function EF 4C: 55.00 >55% EF 2C: 54.10 >55% EF BiP: 55.10 >55% Mitral Valve MV Pk E: 0.56 MV PK A: 0.53 MV Decel Time: 204.00 E/A: 1.00 E'Lateral: 9.14 E'Medial: 7.40 E/E' Med: 7.50 E/E' Lat: 6.10 PHT: 60.00 MVA PHT: 3.67 Decel Carlisle: 2.73 Aortic Valve AoV Pk Abelardo: 1.12 AoV Mn Abelardo: 0.78 AoV VTI: 0.22 AoV Pk Grad: 5.00 Aov Mn Grad: 3.00 LORENA Cont.VTI: 3.06 LVOT LVOT Pk Abelardo: 0.86 LVOT Mn Abelardo: 0.56 LVOT VTI: 0.17 LVOT Pk Grad: 3.00 LVOT Mn Grad: 1.00 LVOT Diam: 2.20 LVOT Area: 3.80 Diastolic Function MV Pk E: 0.56 MV Pk A: 0.53 E/A: 1.00 E'Medial: 7.40 E/E' Med: 7.50 E' Laterial: 9.14 E/E' Lat: 6.10 Right Ventricle TAPSE (mm): 21.60 TVS' Abelardo: 10.10 Tricuspid Valve RA Press: 3.00 Great Vessels Aorta Sinus of Valsalva: 3.66 2.0-3.5 cm Ao Asc: 3.70 2.1-3.4 cm Updated in Other Vendor System with Status of Final Gilberto Serna MD electronically signed on 11/17/2023 2:07:19 PM with status of Final
== END ==
LOC: HO.CARD 10:12
PROVIDERS: PCP Internal Medicine Geriatric Medicine; Visit Provider Nurse Practitioner Family
DX: R07.89 Other chest pain (principal); R06.02 Shortness of breath
CPT/HCPCS: 93306

== ENCOUNTER → 2023-11-16 10:16 | Outpatient (BNV) | payer MEDICAID, SELFPAY | PROVIDERS: PCP Internal Medicine Geriatric Medicine; Visit Provider Internal Medicine Cardiovascular Disease | DX: R07.89 Other chest pain (principal) | CPT/HCPCS: 93306; 93356 ==

== ENCOUNTER 2023-11-29 10:20 | Outpatient (REF) | payer MEDICAID, SELFPAY ==
[2023-11-29 10:41] LABS: MANUAL DIFF FLAG NO
[2023-11-29 11:03] LABS: Basophils Absolute Auto 0.1 X10*3/uL (0.0-0.2); Basophils Percent Auto 1.6 % (0-2); Hematocrit 40.5 % (42.0-52.0); Hemoglobin 12.9 g/dl (14.0-18.0); Imm Gran Abs Auto 0.01 X10*3/uL (0.00-0.03); Imm Gran Pct Auto 0.2 % (0.0-0.4); Lymphocytes Absolute Auto 2.3 X10*3/uL (1.2-4.9); Lymphocytes Percent Auto 42.4 % (20-40); Mean Corpuscular HGB Conc 31.9 g/dl (31.0-36.0); Mean Corpuscular Hemoglobin 31.2 pg (27.0-33.0); Mean Corpuscular Volume 98.1 fL (80.0-98.0); Mean Platelet Volume 10.7 fL (9.4-12.4); Monocytes Absolute Auto 0.3 X10*3/uL (0.1-1.2); Monocytes Percent Auto 5.5 % (2-11); Neutrophils Absolute Auto 2.8 x10*3/uL (2.0-8.3); Neutrophils Percent Auto 50.3 % (45-73); Platelet Count 199 X10*3/uL (160-400); Red Blood Count 4.13 X10*6/uL (4.60-5.80); Red Cell Distribution Width 13.9 % (11.0-16.0); White Blood Count 5.5 X10*3/uL (4.8-10.8)
== END 2023-11-29 10:21 | disposition home or self-care (01) ==
LOC: HO.LABR 10:20
PROVIDERS: PCP Internal Medicine Geriatric Medicine; Visit Provider Clinical Nurse Specialist Psychiatric/Mental Health, Adult
DX: Z79.899 Other long term (current) drug therapy (principal)
CPT/HCPCS: 36415; 85025

== ENCOUNTER → 2023-12-09 09:37 | Outpatient (REF) | payer MEDICAID, SELFPAY ==
--- NOTE | 2023-12-09 10:00 | CA_ITS ---
Acquisition Time: 2023-12-09 10:10:27 Total Exercise Time: 00:02:46 Test Indications: CP,SOB,HTN Medications: Protocol: MOD MEKHI Max HR: 112 BPM 68% of Pred: 164 BPM Max BP: 102/062 mmHG Max Work Load: 2.3 METS Exercise stress test exercise 2 min 46 sec of modified Mekhi protocol achieving 68% MPHR, with baseline a lot of chest pain , without arrhythmias, with normotensive response to exercise, with nondiagnoisitic EKGs. Test will be rescheduled due to patient having caffiene and unable to walk on treadmill. Referred By: Katie Hernandez Overread By: Emerita Del Valle
== END ==
LOC: HO.CARD 09:37
PROVIDERS: PCP Internal Medicine Geriatric Medicine; Visit Provider Nurse Practitioner Family
DX: R07.89 Other chest pain (principal); R06.02 Shortness of breath; I95.9 Hypotension, unspecified
CPT/HCPCS: 93017

== ENCOUNTER → 2023-12-09 10:00 | Outpatient (BNV) | payer MEDICAID, SELFPAY | PROVIDERS: PCP Internal Medicine Geriatric Medicine; Visit Provider Nurse Practitioner | DX: R07.9 Chest pain, unspecified (principal) | CPT/HCPCS: 93016; 93018 ==

== ENCOUNTER 2023-12-13 13:11 | Outpatient (AMB) | payer MEDICAID, SELFPAY ==
--- NOTE | 2023-12-13 13:13 | A.OFFVIS_ITS ---
Intake Visit Reasons: Excision of skin lesion sacrococcygeal area Intake Note: Office procedure: excision of skin lesion sacrococcygeal area. Street Railway Line Installer Required: No Accompanied by: Isara-Hazardous Waste Management Specialist Allergies No Known Allergies Allergy (Mild, Verified 12/13/23 13:14) NONE HPI HPI Excision of skin lesion sacrococcygeal area: Details: He is here for excision of 2 skin lesions from the sacrococcygeal area [facility] Medical History Diabetes Schizophrenia Skin lesions Intellectual disability Surgical History (Updated 12/13/23 @ 13:40 by COMFORT Dhillon) History of surgical removal of skin lesion (~12/13/23) Social History Household Members: None Housing: Apartment Do you presently have visiting nurse or other home services: No Alcohol intake: never Patient Tobacco Use Status: Current someday Tobacco user Tobacco use type: Cigarette e-Cigarette/Vaping Use: Currently Using Second Hand Smoke Exposure: Yes service: No Current occupational status: disabled Office Procedures Excision Details: He was in prone position. The sacrococcygeal area had 2 skin lesions, elevated, hyperkeratotic in appearance, more than 1 cm in diameter each. Total aggregate area was therefore be more than 1 cm I infiltrated each area with lidocaine 1%. I made an elliptical incision around each lesion with a blade 15. I excised the full-thickness of the skin along with the lesion. this to the full-thickness of the skin. Again, each lesion was 1 cm in diameter. Aggregate area was about over 2 cm. I closed both lesions with nylon 3-0 simple interrupted sutures. Band-Aids were applied. He tolerated procedure well. There were no immediate complications. Estimated blood loss was less than 3 cc. 36332-cjacf/arms/legs 2.1-3cm Procedure code (CPT) selection complete Assessment & Plan Assessment & Plan (1) Skin lesion of back: Code(s): L98.9 - Disorder of the skin and subcutaneous tissue, unspecified Plan: Excision of 2 skin lesions on the back with aggregate area of more than 2 cm in diameter was done under local anesthesia. He was instructed on good wound care. He can change dressings after 24 hours with Band-Aids We will see him in the office in about 2 weeks for removal of sutures. His health and social care teacher was with him. Coding Level of Care Code Procedure Only Diagnoses Skin lesion of back L98.9 CPT Codes Trunk/Arms/Legs - CPT: 31002-tvuru/arms/legs 2.1-3cm ([id number])
== END 2023-12-13 13:39 | disposition home or self-care (01) ==
PROVIDERS: PCP Internal Medicine Geriatric Medicine; Visit Provider Surgery
DX: L98.9 Disorder of the skin and subcutaneous tissue, unspecified (principal)
CPT/HCPCS: 11401; 11402

== ENCOUNTER 2023-12-13 13:11 | Outpatient (REF) | payer MEDICAID, SELFPAY | END 2023-12-13 13:12 | disposition home or self-care (01) | LOC: HO.LNP 13:11 | PROVIDERS: PCP Internal Medicine Geriatric Medicine; Visit Provider Surgery | DX: L98.9 Disorder of the skin and subcutaneous tissue, unspecified (principal) | CPT/HCPCS: 11401; 11402; 88304; 88305 ==

== ENCOUNTER 2023-12-15 09:49 | Outpatient (AMB) | payer MEDICAID, SELFPAY ==
--- NOTE | 2023-12-15 09:54 | A.OFFVIS_ITS ---
VS Expanded 12/15/23 09:55 12/22/23 12:05 Height 5 ft 10 in 5 ft 10 in Weight 142 lb 142 lb BMI 20.4 20.4 Intake Visit Reasons: abnormal weightloss/CONFIRMED Allergies No Known Allergies Allergy (Mild, Verified 12/13/23 13:14) NONE Nutrition Presentation Details: Pt presents for MNT for unintentional weight loss. Pt presents with staff from [facility] to this appt. Staff reports yesterday Pt was at [facility] and metformin was reduced to 500 mg once a day in view of blood glucose within normal limits Miralax was stopped Pt reports he has coffee in AM and has bananas which he will finish in one day (5-6 bananas Staff reports Pt has bought food (canned meals, bread, avocado, gouda cheese, cereal , milk ) and per Pt he will eat these foods mostly at night Has homemade meals (rice/aguila/chicken or potato salad/chicken or rice soup/fritter/chicken (by mother) a couple of times in the week, Pt reports finishing the meal Likes lasagna, buys fruit/milk smoothies Choosing corn cereals with banana with whole milk canned spaghetti Has nicotine patches Pt has no dentures, he does not like the dentures BS Monitoring Most Recent Diabetes Results: No Data to Display Assessment Assessment details: Pt gradually gaining weight by increasing food intake with encouragement from [facility] staff. Pt has gained about 9 lbs since 09/2023 will continue to reinforce including nutrient dense foods , working on prevention of weight loss. VFB-Kvskgaj-Jn.Jeor Equation Height: 5 ft 10 in Weight: 142 lb Resting Metabolic Rate: 1484.19 Calculated Activity Level: Sedentary Calories Needed to Maintain Weight: 1781.03 [facility] Medical History Diabetes Schizophrenia Skin lesions Intellectual disability Surgical History History of surgical removal of skin lesion (~12/13/23) Social History Household Members: None Housing: Apartment Do you presently have visiting nurse or other home services: No Alcohol intake: never Patient Tobacco Use Status: Current someday Tobacco user Tobacco use type: Cigarette e-Cigarette/Vaping Use: Currently Using Second Hand Smoke Exposure: Yes service: No Current occupational status: disabled Assessment & Plan Assessment & Plan (1) Abnormal weight loss: Comment: Pt gradually gaining weight , bmi at 20 on 11/2023 from 18 in 09/2023 Code(s): R63.4 - Abnormal weight loss Category: Medical Plan: Continue reinforcing nutrient dense foods (protein/dairy/omega 3 fatty acids/fiber rich foods) Pt gradually gaining weight via dietary intake , has gained about 9 lbs since 09/2023, bmi at 20.4 today 11/2023 Slowly will introduce concept of adding vegetables inthe diet - currently resistant Patient Instructions: Try various types of cereals with whole milk (high protein special k, raisin bran cereal , add bananas to your cereal) Choose sandwiches for lunch as a quick meal or snack ( tuna sand, egg salad sand, chicken/turkey sand Coding Level of Care Code Nutr Indiv Subseq (05482) Diagnoses Abnormal weight loss R63.4 Time Spent (min) 30
[2023-12-15 09:55] VITALS: BMI 20.4
[2023-12-22 12:05] VITALS: BMI 20.4
== END 2023-12-15 10:21 | disposition home or self-care (01) ==
PROVIDERS: PCP Internal Medicine Geriatric Medicine; Visit Provider Dietitian, Registered
DX: R63.4 Abnormal weight loss (principal)

== ENCOUNTER → 2023-12-15 09:49 | Outpatient (BNVA) | payer MEDICAID, SELFPAY | PROVIDERS: PCP Internal Medicine Geriatric Medicine; Visit Provider Dietitian, Registered | DX: R63.4 Abnormal weight loss (principal) | CPT/HCPCS: 97803 ==

== ENCOUNTER 2023-12-27 10:09 | Outpatient (AMB) | payer MEDICAID, SELFPAY ==
--- NOTE | 2023-12-27 10:17 | A.OFFVIS_ITS ---
Vital Signs 12/27/23 10:23 Height 5 ft 10 in Weight 146 lb BMI 20.9 BP 79/55 L Position Right Lateral Pulse 94 Intake Visit Reasons: Weight loss, colonoscopy screening Allergies No Known Allergies Allergy (Mild, Verified 12/13/23 13:14) NONE HPI HPI Weight loss, colonoscopy screening: Details: LAST VISIT Weight loss, unintentional Anemia Plan Continue diet high in protein. Hi calorie meals. Continue follow-up with registered dietitian. Avoid dietary triggers and late night snacking. Increase fiber intake and fluid intake. Follow-up in 2 months, sooner on as needed basis. Both patient and his cue worker is agreeable to plan of care and verbalizes understanding of instructions. Medications Refilled food supplemt, lactose-reduced (Ensure Plus High Protein) 1 ea PO TID 237 mL 12RF R63.4, R63.6 TODAY'S VISIT Patient is here today for follow-up and to discuss the prep. Patient was unable to do the treadmill and this stress test was stopped. Patient will need to be scheduled for another stress post before being cleared for colonoscopy. Will send the prep and message to surgical scheduled to get him booked. Patient denies any issues with anesthesia in the past. Currently on Eliquis. Denies any dyspepsia, dysphagia or odynophagia. Reports that he is moving his bowels without issues. Patient denies nausea or vomiting. Patient gained 20 lb since August. Has regular appointments with complaint analyst. Patient does drink additional milk shakes daily. [facility] Medical History Diabetes Schizophrenia Skin lesions Intellectual disability Surgical History History of surgical removal of skin lesion (~12/13/23) Social History Household Members: None Housing: Apartment Do you presently have visiting nurse or other home services: No Alcohol intake: never Patient Tobacco Use Status: Current someday Tobacco user Tobacco use type: Cigarette e-Cigarette/Vaping Use: Currently Using Second Hand Smoke Exposure: Yes service: No Current occupational status: disabled Review of Systems Const Denies weight gain and Denies weight loss ENT Reports no additional complaints, Denies dysphagia and Denies odynophagia Card Reports no additional complaints Resp Reports no additional complaints GI Denies abdominal pain, Denies belching, Denies melena, Denies bloating, Denies change in bowel habits, Denies dysphagia, Denies excessive flatus, Denies dyspepsia, Denies heartburn, Denies diarrhea, Denies loose stools, Denies nausea, Denies odynophagia and Denies vomiting Reports no additional complaints Musc Reports no additional complaints Neuro Reports no additional complaints Psych Reports no additional complaints Endo Reports no additional complaints Physical Exam Vital Signs: Last Vital Signs Pulse 94 12/27/23 10:23 BP 79/55 L 12/27/23 10:23 BMI result Body Mass Index 20.9 Const General: no acute distress Nutritional Appearance: underweight Orientation/consciousness: oriented to person and oriented to place Resp Effort & Inspection: normal respiratory effort, able to speak in complete sentences, no tracheal deviation and symmetric chest movement Auscultation: clear to auscultation bilaterally Cardio Rate: regular rate GI Inspection: No distended Palpation (GI): Soft to palpation, not firm, nontender and No hepatosplenomegaly present Auscultation: normal bowel sounds Rectal Exam - Male: Yes other (Coccyx Adhesions) General: Yes no CVA tenderness Back/Spine/Pelvis Back: no CVA tenderness Skin General skin exam: elasticity normal, turgor normal and dry skin Neuro General: oriented to person and oriented to place Psych Appearance: grossly normal Assessment & Plan Assessment & Plan (1) Screen for colon cancer: Code(s): Z12.11 - Encounter for screening for malignant neoplasm of colon Plan What to expect before during and after procedure discussed with patient and the patient case coordinator. Patient will follow-up with us after the procedure. Denies any ill effects from anesthesia in the past. No history of sleep apnea. Patient is on Eliquis. Cardiac clearance pending. Patient will still need to go for stress test. Patient will follow-up in the office after the procedure, sooner on as needed basis. Both patient and patient case coordinator are agreeable to plan of care and verbalizes understanding of instructions. They were given the opportunity to ask questions and all questions answered. Thank you for allowing me to participate in his care Medications: New bisacodyl (Dulcolax (bisacodyl)) take 4 tabs at noon the day before your colonoscopy 20 mg (4 x 5 mg) PO ONCE 1 day 4 tabs 0RF Z12.11 - Encounter for screening for malignant neoplasm of colon polyethylene glycol 3350 (Miralax) As directed by gastroenterology department at [facility] 238 grams PO ONCE 238 grams 0RF Z12.11 - Encounter for screening for malignant neoplasm of colon Coding Level of Care Code Est Pt Level 3 (21244) Diagnoses Screen for colon cancer Z12.11 Time Spent (min) 30 Comment 20 minutes spent with patient and additional 10 minutes spent reviewing his records
[2023-12-27 10:23] VITALS: BP 79/55; PULSE 94; BMI 20.9
== END 2023-12-27 10:47 | disposition home or self-care (01) ==
PROVIDERS: PCP Internal Medicine Geriatric Medicine; Visit Provider Nurse Practitioner Family
DX: Z12.11 Encounter for screening for malignant neoplasm of colon (principal); Z01.818 Encounter for other preprocedural examination
CPT/HCPCS: 99213

== ENCOUNTER → 2023-12-27 10:09 | Outpatient (BNVA) | payer MEDICAID, SELFPAY | PROVIDERS: PCP Internal Medicine Geriatric Medicine; Visit Provider Nurse Practitioner Family | DX: Z01.818 Encounter for other preprocedural examination (principal); Z79.01 Long term (current) use of anticoagulants | CPT/HCPCS: 99212 ==

== ENCOUNTER 2023-12-29 12:50 | Outpatient (AMB) | payer MEDICAID, SELFPAY ==
[2023-12-29 12:57] VITALS: BMI 20.9
--- NOTE | 2023-12-29 12:57 | A.OFFVIS_ITS ---
Vital Signs 12/29/23 12:57 Height 5 ft 10 in Weight 146 lb BMI 20.9 Intake Visit Reasons: stitches removal Intake Note: This patient presents for a post-op follow-up assessment status post excision skin lesion of back. Pt c/o; reports pain surgical site. Utilities Manager Required: No Accompanied by: Self / Same As Patient Allergies No Known Allergies Allergy (Mild, Verified 12/29/23 13:04) NONE HPI HPI stitches removal: Details: He underwent excision of lesions from the sacrococcygeal area under local anesthesia last 12/15/2023. He tolerated procedure well He currently denies significant complaints except for itching around the area. He does state that the stitches are uncomfortable. [facility] Medical History Diabetes Schizophrenia Skin lesions Intellectual disability Surgical History History of surgical removal of skin lesion (~12/13/23) Social History Household Members: None Housing: Apartment Do you presently have visiting nurse or other home services: No Alcohol intake: never Patient Tobacco Use Status: Current someday Tobacco user Tobacco use type: Cigarette e-Cigarette/Vaping Use: Currently Using Second Hand Smoke Exposure: Yes service: No Current occupational status: disabled Review of Systems Const Denies chills and Denies fever(s) Card Denies chest pain, Denies dyspnea and Denies dyspnea on exertion Resp Denies cough, Denies dyspnea and Denies dyspnea on exertion GI Denies hematochezia and Denies change in bowel habits Denies hematuria and Denies difficulty urinating Musc Denies back pain and Denies limited range of motion Neuro Denies focal weakness and Denies convulsions Psych Denies depression and Denies mood swings Physical Exam Vital Signs: BMI result Body Mass Index 20.9 Const General: comfortable and no acute distress Back/Spine/Pelvis Other: Excision site on the sacrococcygeal area are both well healed, not infected Assessment & Plan Assessment & Plan (1) Skin lesions: Code(s): L98.9 - Disorder of the skin and subcutaneous tissue, unspecified Category: Medical Plan: Status post excision of 2 lesions from the sacrococcygeal area. Both of these show cutaneous horns. I removed all his sutures. The wound edges remained well apposed. He can follow up on a p.r.n. basis. Coding Level of Care Code Global (89352) Diagnoses Skin lesions L98.9
== END 2023-12-29 13:27 | disposition home or self-care (01) ==
PROVIDERS: PCP Internal Medicine Geriatric Medicine; Visit Provider Surgery
DX: L98.9 Disorder of the skin and subcutaneous tissue, unspecified (principal)
CPT/HCPCS: 99024

== ENCOUNTER → 2023-12-29 12:50 | Outpatient (BNVA) | payer MEDICAID, SELFPAY | PROVIDERS: PCP Internal Medicine Geriatric Medicine; Visit Provider Surgery | DX: L98.9 Disorder of the skin and subcutaneous tissue, unspecified (principal) | CPT/HCPCS: 99212 ==

== ENCOUNTER 2024-01-21 10:13 | Outpatient (REF) | payer MEDICAID, SELFPAY ==
[2024-01-21 10:34] LABS: MANUAL DIFF FLAG NO
[2024-01-21 10:53] LABS: Basophils Absolute Auto 0.1 X10*3/uL (0.0-0.2); Basophils Percent Auto 1.5 % (0-2); Hematocrit 37.4 % (42.0-52.0); Hemoglobin 12.1 g/dl (14.0-18.0); Imm Gran Abs Auto 0.02 X10*3/uL (0.00-0.03); Imm Gran Pct Auto 0.4 % (0.0-0.4); Lymphocytes Absolute Auto 2.2 X10*3/uL (1.2-4.9); Lymphocytes Percent Auto 46.9 % (20-40); Mean Corpuscular HGB Conc 32.4 g/dl (31.0-36.0); Mean Corpuscular Hemoglobin 31.1 pg (27.0-33.0); Mean Corpuscular Volume 96.1 fL (80.0-98.0); Mean Platelet Volume 10.7 fL (9.4-12.4); Monocytes Absolute Auto 0.3 X10*3/uL (0.1-1.2); Monocytes Percent Auto 6.6 % (2-11); Neutrophils Absolute Auto 2.1 x10*3/uL (2.0-8.3); Neutrophils Percent Auto 44.6 % (45-73); Platelet Count 175 X10*3/uL (160-400); Red Blood Count 3.89 X10*6/uL (4.60-5.80); Red Cell Distribution Width 13.6 % (11.0-16.0); White Blood Count 4.7 X10*3/uL (4.8-10.8)
== END 2024-01-21 10:14 | disposition home or self-care (01) ==
LOC: HO.LABR 10:13
PROVIDERS: PCP Internal Medicine Geriatric Medicine; Visit Provider Clinical Nurse Specialist Psychiatric/Mental Health, Adult
DX: Z79.899 Other long term (current) drug therapy (principal)
CPT/HCPCS: 36415; 85025

== ENCOUNTER → 2024-01-25 09:31 | Outpatient (REF) | payer MEDICAID, SELFPAY ==
--- NOTE | ~2024-01-25 | NM_ITS ---
Lexiscan Myocardial perfusion study Indication: Chest pain Technique: The patient was brought in for a Lexiscan perfusion study on 01/25/2024 and was injected 0.4 mg of Lexiscan intravenously. Within a minute of this injection 25 mCi of sestamibi was given intravenously. Images were obtained using the SPECT gamma camera interlaced with the gating device. Images were obtained in supine position. Resting perfusion study was performed on 01/26/2024. Patient was administered 25 mCi of sestamibi intravenously at rest. Images were then obtained in supine position. Total DLP 89 mGy-cm. Images were processed with the software and compared side to side in short axis, horizontal long axis and vertical long axis views. Findings: Raw aquisition reviewed. The stress perfusion study showed no significant perfusion moderately. Both uncontrasted CT attenuation corrected images were reviewed. The gated study shows normal LV systolic function with calculated LVEF of 61%. LV cavity is normal in size. The gated study shows normal wall thickening and contraction of segments. Resting study shows no significant perfusion abnormality. Gating at rest reveals normal wall motion with visually normal ejection fraction. Calculated values do not see accurate. The findings are consistent with no clear reversible or fixed perfusion defects. NM/NM cardiolite stress test Impression: 1. Myocardial perfusion imaging study shows likely normal myocardial perfusion. 2. Gated LVEF is 61% during stress. Visually normal during rest. EKG component of the test reported separately. Electronically signed by: Manan Ferrari MD 01/27/2024 09:49 AM EDT
--- NOTE | 2024-01-25 09:35 | CA_ITS ---
Acquisition Time: 2024-01-25 10:36:35 Total Exercise Time: 00:02:00 Test Indications: CHEST PAIN Medications: Protocol: LEXISCAN Max HR: 107 BPM 65% of Pred: 164 BPM Max BP: 100/066 mmHG Max Work Load: 1.0 METS Pharmacological stress test with Lexiscan injection, while sitting and kicking his legs, with mild sob and vague report of chest discomfort, without arrythmia, with low BP throught test with no significant change following injection, with nondiagnostic EKG for ischemia.In recovery he was treated with Aminophylline 75mg IVP to reverse Lexiscan. Nuclear images pending. Test reviewed with Dr Ferrari. Referred By: Emerita Del Valle Overread By: GIULIANO LORD
== END ==
LOC: HO.CARD 09:31
PROVIDERS: PCP Internal Medicine Geriatric Medicine; Visit Provider Nurse Practitioner Family
DX: R07.89 Other chest pain (principal)
CPT/HCPCS: 78452; 93017; A9500; J0280; J2785

== ENCOUNTER → 2024-01-25 09:35 | Outpatient (BNV) | payer MEDICAID, SELFPAY | PROVIDERS: PCP Internal Medicine Geriatric Medicine; Visit Provider Nurse Practitioner Family | DX: R07.9 Chest pain, unspecified (principal) | CPT/HCPCS: 78452; 93016; 93018 ==

== ENCOUNTER 2024-02-29 11:18 | Outpatient (REF) | payer MEDICAID, SELFPAY ==
[2024-02-29 11:33] LABS: MANUAL DIFF FLAG NO
[2024-02-29 12:22] LABS: Basophils Absolute Auto 0.1 X10*3/uL (0.0-0.2); Basophils Percent Auto 1.2 % (0-2); Hematocrit 40.5 % (42.0-52.0); Hemoglobin 13.1 g/dl (14.0-18.0); Imm Gran Abs Auto 0.01 X10*3/uL (0.00-0.03); Imm Gran Pct Auto 0.2 % (0.0-0.4); Lymphocytes Absolute Auto 2.2 X10*3/uL (1.2-4.9); Lymphocytes Percent Auto 45.7 % (20-40); Mean Corpuscular HGB Conc 32.3 g/dl (31.0-36.0); Mean Corpuscular Hemoglobin 31.2 pg (27.0-33.0); Mean Corpuscular Volume 96.4 fL (80.0-98.0); Mean Platelet Volume 11.3 fL (9.4-12.4); Monocytes Absolute Auto 0.4 X10*3/uL (0.1-1.2); Monocytes Percent Auto 7.7 % (2-11); Neutrophils Absolute Auto 2.2 x10*3/uL (2.0-8.3); Neutrophils Percent Auto 45.2 % (45-73); Platelet Count 178 X10*3/uL (160-400); White Blood Count 4.8 X10*3/uL (4.8-10.8)
== END 2024-02-29 11:19 | disposition home or self-care (01) ==
LOC: HO.LABR 11:18
PROVIDERS: PCP Internal Medicine Geriatric Medicine; Visit Provider Psychiatry & Neurology Psychiatry
DX: Z79.899 Other long term (current) drug therapy (principal)
CPT/HCPCS: 36415; 85025

== ENCOUNTER 2024-04-07 10:36 | Outpatient (REF) | payer MEDICAID, SELFPAY ==
[2024-04-07 11:04] LABS: MANUAL DIFF FLAG NO
[2024-04-07 11:36] LABS: Basophils Absolute Auto 0.1 X10*3/uL (0.0-0.2); Basophils Percent Auto 1.4 % (0-2); Hematocrit 38.9 % (42.0-52.0); Hemoglobin 12.7 g/dl (14.0-18.0); Imm Gran Abs Auto 0.01 X10*3/uL (0.00-0.03); Imm Gran Pct Auto 0.2 % (0.0-0.4); Lymphocytes Percent Auto 41.4 % (20-40); Mean Corpuscular HGB Conc 32.6 g/dl (31.0-36.0); Mean Corpuscular Hemoglobin 31.2 pg (27.0-33.0); Mean Corpuscular Volume 95.6 fL (80.0-98.0); Mean Platelet Volume 10.9 fL (9.4-12.4); Monocytes Absolute Auto 0.3 X10*3/uL (0.1-1.2); Monocytes Percent Auto 6.9 % (2-11); Neutrophils Absolute Auto 2.5 x10*3/uL (2.0-8.3); Neutrophils Percent Auto 50.1 % (45-73); Platelet Count 162 X10*3/uL (160-400); Red Blood Count 4.07 X10*6/uL (4.60-5.80); White Blood Count 4.9 X10*3/uL (4.8-10.8)
== END 2024-04-07 10:37 | disposition home or self-care (01) ==
LOC: HO.LABR 10:36
PROVIDERS: Psychiatry & Neurology Psychiatry
DX: Z79.899 Other long term (current) drug therapy (principal)
CPT/HCPCS: 36415; 85025

== ENCOUNTER 2024-05-26 10:30 | Outpatient (REF) | payer MEDICAID, SELFPAY ==
[2024-05-26 10:44] LABS: MANUAL DIFF FLAG NO
[2024-05-26 11:18] LABS: Basophils Absolute Auto 0.1 X10*3/uL (0.0-0.2); Basophils Percent Auto 1.4 % (0-2); Hemoglobin 12.6 g/dl (14.0-18.0); Imm Gran Abs Auto 0.01 X10*3/uL (0.00-0.03); Imm Gran Pct Auto 0.2 % (0.0-0.4); Lymphocytes Absolute Auto 1.9 X10*3/uL (1.2-4.9); Lymphocytes Percent Auto 43.2 % (20-40); Mean Corpuscular HGB Conc 32.3 g/dl (31.0-36.0); Mean Corpuscular Hemoglobin 30.7 pg (27.0-33.0); Mean Corpuscular Volume 95.1 fL (80.0-98.0); Monocytes Absolute Auto 0.3 X10*3/uL (0.1-1.2); Monocytes Percent Auto 6.6 % (2-11); Neutrophils Absolute Auto 2.1 x10*3/uL (2.0-8.3); Neutrophils Percent Auto 48.6 % (45-73); Platelet Count 185 X10*3/uL (160-400); Red Cell Distribution Width 13.2 % (11.0-16.0); White Blood Count 4.4 X10*3/uL (4.8-10.8)
== END 2024-05-26 10:31 | disposition home or self-care (01) ==
LOC: HO.LABR 10:30
PROVIDERS: PCP Internal Medicine Geriatric Medicine; Visit Provider Psychiatry & Neurology Psychiatry
DX: Z79.899 Other long term (current) drug therapy (principal)
CPT/HCPCS: 36415; 85025

== ENCOUNTER 2024-06-28 11:18 | Outpatient (REF) | payer MEDICAID, SELFPAY ==
[2024-06-28 11:38] LABS: MANUAL DIFF FLAG NO
[2024-06-28 11:52] LABS: Basophils Absolute Auto 0.1 X10*3/uL (0.0-0.2); Basophils Percent Auto 1.2 % (0-2); Hematocrit 40.7 % (42.0-52.0); Imm Gran Abs Auto 0.01 X10*3/uL (0.00-0.03); Imm Gran Pct Auto 0.2 % (0.0-0.4); Lymphocytes Absolute Auto 2.2 X10*3/uL (1.2-4.9); Lymphocytes Percent Auto 33.2 % (20-40); Mean Corpuscular HGB Conc 31.9 g/dl (31.0-36.0); Mean Corpuscular Hemoglobin 30.1 pg (27.0-33.0); Mean Corpuscular Volume 94.2 fL (80.0-98.0); Mean Platelet Volume 11.4 fL (9.4-12.4); Monocytes Absolute Auto 0.4 X10*3/uL (0.1-1.2); Monocytes Percent Auto 6.2 % (2-11); Neutrophils Absolute Auto 3.9 x10*3/uL (2.0-8.3); Neutrophils Percent Auto 59.2 % (45-73); Platelet Count 156 X10*3/uL (160-400); Red Blood Count 4.32 X10*6/uL (4.60-5.80); Red Cell Distribution Width 13.1 % (11.0-16.0); White Blood Count 6.5 X10*3/uL (4.8-10.8)
== END 2024-06-28 11:19 | disposition home or self-care (01) ==
LOC: HO.LABR 11:18
PROVIDERS: PCP Internal Medicine Geriatric Medicine; Visit Provider Psychiatry & Neurology Psychiatry
DX: Z79.899 Other long term (current) drug therapy (principal)
CPT/HCPCS: 36415; 85025

== ENCOUNTER 2024-07-11 10:21 | Outpatient (REF) | payer MEDICAID, SELFPAY ==
--- OUTSIDE RECORDS SUMMARY | 2024-07-11 11:20 | XMS_ITS | Clinical Summary ---
Author Organization [facility] Address [address] [place] [address] Phone Care Team Providers Care Nuclear Radiation Engineer Name Role Phone Name, Lucien REAL Primary Care Provider [phone] Allergies No known active allergies Medications ammonium lactate (LAC-HYDRIN) 12 % lotion Apply to soles of feet daily. At night wear socks to bed 06/15/2023 Active Encounters Date Type Department Care Team Description 06/06/2024 11:00 AM EST Office Visit Orthopedic Surgery [place] [id number] [address] Giacomo Salter DPM Controlled type 2 diabetes with neuropathy (CMS/HCC) (Primary Dx); Arthritis of both feet; Metatarsalgia of left foot; Hammertoes of both feet; Dermatophytosis, nail from Last 3 Months Social History Tobacco Use Types Packs/Day Years Used Date Smoking Tobacco: Never Assessed Sex and Gender Information Value Date Recorded Sex Assigned at Not on file Legal Sex Male 2:17 AM EST Gender Identity Not on file Sexual Orientation Not on file Last Filed Vital Signs Vital Sign Reading Time Taken Comments Blood Pressure - - Pulse - - Temperature - - Respiratory Rate - - Oxygen Saturation - - Inhaled Oxygen Concentration - - Weight 73.9 kg (163 lb) 02/07/2024 10:00 AM EDT Height 170.2 cm (5' 7 ) 02/07/2024 10:00 AM EDT Body Mass Index 25.53 02/07/2024 10:00 AM EDT Plan of Treatment Upcoming Encounters Date Type Department Care Team ([facility] st Contact Info) Description 09/04/2024 11:00 AM EDT Office Visit Orthopedic Surgery [facility] [address] [place] [id number] Giacomo Salter, DPVictoria 175 [facility] [address] [place] [address] Health Maintenance Due Date Last Done Comments Diabetes: Annual Foot Exam 1977 Diabetes: Annual Retina Eye Exam 1977 Hepatitis A Vaccines (1 of 2 - Risk 2-dose series) 1986 Hepatitis B Vaccines (1 of 3 - 19+ 3-dose series) 1986 Zoster Vaccines (1 of 2) 2017 Colorectal Cancer Screening: Colonoscopy 12/21/2023 Social Influencers of Health Screening 12/21/2023 Diabetes: Annual Urine Albumin-Creatinine Ratio (uACR) 06/06/2024 Diabetes: Annual GFR (Glomerular Filtration Rate) 08/18/2024 08/19/2023 Diabetes: Blood Sugar Control Test (HGBA1C) 09/12/2024 03/14/2024, 08/03/2023 Depression Screening 12/13/2024 12/14/2023 Cholesterol Screening (Lipid Panel) 03/14/2026 03/14/2021 DTaP,Tdap,and Td Vaccines (3 - Td or Tdap) 12/12/2031 12/11/2021, 06/23/2016 Pneumococcal Vaccine: 50+ Years Completed 04/29/2023, 07/05/2017 Pneumococcal Vaccine: Pediatrics (0 to 5 Years) and At-Risk Patients (6 to 64 Years) Completed 04/29/2023, 07/05/2017 HIV Screening Completed 08/11/2023, 08/11/2023 Hepatitis C Screening Completed 08/11/2023 COVID-19 Vaccine Completed 03/14/2024, , 11/04/2020 Influenza Vaccine Completed 03/14/2024, , 02/17/2021, Additional history exists HIB Vaccines Aged Out No longer eligi ble based on patient's age to complete this topic HPV Vaccines Aged Out No longer eligi ble based on patient's age to complete this topic IPV Vaccines Aged Out No longer eligi ble based on patient's age to complete this topic MMR Vaccines Aged Out No longer eligi ble based on patient's age to complete this topic Meningococcal ACWY Vaccine Aged Out N o longer eligible based on patient's age to complete this topic Meningococcal B Vacine Aged Out No lo nger eligible based on patient's age to complete this topic RSV Immunization Patients Under 20 months Aged Out No longer eligible based on patient's age to complete this topic Varicella Vaccines Aged Out No longer eligible based on patient's age to complete this topic Procedures Procedure Name Priority Date/Time Associated Diagnosis Comments ANNUAL BMP BLOOD TEST Routine 08/19/2023 HEPATITIS C SCREENING Routine 08/11/2023 HIV SCREENING Routine 08/11/2023 HEMOGLOBIN A1C Routine 08/03/2023 LIPID PANEL Routine 03/14/2021 from Last 3 Months or Most Recently Relevant to Health Maintenance Results * Annual BMP Blood Test (08/19/2023) Pathologist [facility] Annual BMP Blood Test Abstracted [facility] Provider HEALTH MAINTENANCE Final Result * HIV Screening (08/11/2023) [facility] HIV Screening Abstracted Result [facility] Provider HEALTH MAINTENANCE Final Result * Hepatitis C Screening (08/11/2023) [facility] Hepatitis C Screening Abstracted [facility] Provider HEALTH MAINTENANCE Final Result * Hemoglobin A1c (08/03/2023) [facility] Hemoglobin A1C 0.0 % Comment:No interpretation Blood Venous blood specimen / Unknown Result [facility] Provider LAB BLOOD ORDERABLES Carrie l Result * Lipid panel (03/14/2021) [facility] LDL/HDL Ratio 0 Comment:No interpretation Triglycerides 0 mg/dL Comment:No interpretation Cholesterol 0 mg/dL Comment:No interpretation HDL 0 mg/dL Comment:No interpretation LDL Cholesterol 0 mg/dL Comment:No interpretation Blood Venous blood specimen / Unknown us Historical Provider LAB BLOOD ORDERABLES Carrie black Result from Last 3 Months or Most Recently Relevant to Health Maintenance Insurance MEDICAID - [place] Care Teams Nuclear Radiation Engineer Relationship Specialty Start Date End Date Name, MD Lucien [address] [place], [place] PCP - General 05/05/23
[2024-07-15 11:38] LABS: Clozapine (Clozaril) 292 mcg/L; Norclozapine 106 mcg/L (25-400)
== END 2024-07-11 10:22 | disposition home or self-care (01) ==
LOC: HO.LAB 10:21
PROVIDERS: PCP Internal Medicine Geriatric Medicine
DX: Z79.899 Other long term (current) drug therapy (principal)
CPT/HCPCS: 36415; 80159

== ENCOUNTER 2024-09-05 10:55 | Outpatient (REF) | payer MEDICAID, SELFPAY ==
[2024-09-05 11:08] LABS: MANUAL DIFF FLAG NO
[2024-09-05 11:26] LABS: Basophils Percent Auto 0.7 % (0-2); Hemoglobin 12.2 g/dl (14.0-18.0); Imm Gran Abs Auto 0.01 X10*3/uL (0.00-0.03); Imm Gran Pct Auto 0.2 % (0.0-0.4); Lymphocytes Absolute Auto 2.4 X10*3/uL (1.2-4.9); Lymphocytes Percent Auto 42.9 % (20-40); Mean Corpuscular HGB Conc 32.1 g/dl (31.0-36.0); Mean Corpuscular Hemoglobin 29.9 pg (27.0-33.0); Mean Corpuscular Volume 93.1 fL (80.0-98.0); Mean Platelet Volume 11.1 fL (9.4-12.4); Monocytes Absolute Auto 0.3 X10*3/uL (0.1-1.2); Monocytes Percent Auto 5.6 % (2-11); Neutrophils Absolute Auto 2.8 x10*3/uL (2.0-8.3); Neutrophils Percent Auto 50.6 % (45-73); Platelet Count 150 X10*3/uL (160-400); Red Blood Count 4.08 X10*6/uL (4.60-5.80); Red Cell Distribution Width 13.5 % (11.0-16.0); White Blood Count 5.6 X10*3/uL (4.8-10.8)
--- OUTSIDE RECORDS SUMMARY | 2024-09-05 13:19 | XMS_ITS | Encounter Summary ---
Author Organization [employer] Address [address] [facility] 7t [place] [address] Care Team Providers Care Market Sales Manager Name Role Phone Name, Lucien REAL Primary Care Provider [phone] Encounter Details Date Type Department Care Team (Late st Contact Info) Description 09/05/2024 Orders Only GENERIC EXTERNAL DATA DEPARTMENT Provider, Generic External Data Social History Tobacco Use Types Packs/Day Years Used Date Smoking Tobacco: Every Day Cigarettes 0.5 34 Passive Smoke Exposure: Current Smokeless Tobacco: Never Alcohol Use Standard Drinks/Week Comments Not Currently 0 (1 standard drink = 0.6 oz pur e alcohol) Depression Answer Date Recorded Patient Health Questionnaire-9 Score 0 12/14/2023 Patient Health Questionnaire-9 Score 0 12/14/2023 Last PHQ-9: Questionnaire Data Not on file 0 12/14/2023 Housing Stability Answer Date Recorded What is your housing situation today? I have marcelo avila 12/14/[address] you li ve. Do you have problems with any of the following? None of the above 12/14/2023 Food Insecurity Answer Date Recorded Within the past 12 months, y ou worried that your food would run out before you got money to buy more: Never True 12/14/2023 Within the past 12 months,th e food you bought just didn't last and you didn't have enough money to get more: Never True Transportation Answer Date Recorded In the past 12 months, has l ack of transportation kept you from medical appts, meetings, work or from getting things needed for daily living? No 12/14/2023 Utilities Answer Date Recorded In the past 12 months, has t he electric, gas, oil or water company threatened to shut off services in your home? No 12/14/2023 Depression Answer Date Recorded Patient Health Questionnaire-2 Score 0 12/14/2023 Internet Access Answer Date Recorded Internet Access Q1 No 01/21/2024 Internet Access Q2 I do not want or need it 12/24 Sex and Gender Information Value Date Recorded Sex Assigned at Male 03/23/2022 10:15 AM EDT Legal Sex Male 10:15 AM EDT Gender Identity Male 03/23/2022 10:15 AM EDT Sexual Orientation Choose not to disclose 2021 10:15 AM EDT documented as of this encounter Plan of Treatment Not on file documented as of this encounter Procedures Procedure Name Priority Date/Time Associated Diagnosis Comments CBC WITH AUTO DIFFERENTIAL Routine 09/05/2024 11:06 AM EDT documented in this encounter Results * (ABNORMAL) CBC auto differential (09/05/2024 11:06 AM EDT) White Blood Count 5.6 4.8 - 10.8 X10*3/uL [facility] Red Blood Count 4.08(L) 4.60 - 5.80 X10*6/uL [facility] Hemoglobin 12.2(L) 14.0 - 18.0 g/dl [facility] Hematocrit 38.0(L) 42.0 - 52.0 % [facility] Mean Corpuscular Volume 93.1 80.0 - 98.0 fL [facility] Mean Corpuscular Hemoglobin 29.9 27.0 - 33.0 pg [facility] Mean Corpuscular HGB Conc 32.1 31.0 - 36.0 g/dl [facility] Red Cell Distribution Width 13.5 11.0 - 16.0 % [facility] Platelet Count 150(L) 160 - 400 X10*3/uL [facility] Mean Platelet Volume 11.1 9.4 - 12.4 fL [facility] Neutrophils Percent Auto 50.6 45 - 73 % [facility] Imm Gran Pct Auto 0.2 0.0 - 0.4 % [facility] Lymphocytes Percent Auto 42.9(H) 20 - 40 % [facility] Monocytes Percent Auto 5.6 2 - 11 % [facility] Eosinophils Percent Auto 0.0 0 - 4 % [facility] Basophils Percent Auto 0.7 0 - 2 % [facility] NRBC Pct Auto 0.0 0.0 - 0.2 /100WBC [facility] Neutrophils Absolute Auto 2.8 2.0 - 8.3 x10*3/uL [facility] Imm Gran Abs Auto 0.01 0.00 - 0.03 X10*3/uL [facility] Lymphocytes Absolute Auto 2.4 1.2 - 4.9 X10*3/uL [facility] Monocytes Absolute Auto 0.3 0.1 - 1.2 X10*3/uL [facility] Eosinophils Absolute Auto 0.0 0.0 - 0.4 X10*3/uL [facility] Basophils Absolute Auto 0.0 0.0 - 0.2 X10*3/uL [facility] NRBC Abs Auto 0.000 0.0 - 0.012 X10*3/uL [facility] 09/05/2024 11:0 6 AM EDT 09/05/2024 11:06 AM EDT us Generic External Data Provider LAB BLOOD ORDERAB LES Final Result Performing Organization Address City/State/[facility] Co de Phone Number [facility] [address] [place] [phone] documented in this encounter Visit Diagnoses Not on filedocumented in this encounter Additional Health Concerns Assessment Noted Time PHQ-9 Depression Total Score: 0 12/14/19 24 2:55 PM EDT documented as of this encounter Care Teams Market Sales Manager Relationship Specialty Start Date End Date Name, MD Lucien [address] [place] [address] PCP - General Family Medicine 08/07/15 documented as of this encounter
--- OUTSIDE RECORDS SUMMARY | 2024-09-05 13:19 | XMS_ITS | Clinical Summary ---
Author Organization [address] [facility] Address 175 [place] [address] Phone Care Team Providers Care Paid Search Marketing Analyst Name Role Phone Name, Lucien REAL Primary Care Provider [phone] Allergies No known active allergies Medications ammonium lactate (LAC-HYDRIN) 12 % lotion Apply to soles of feet daily. At night wear socks to bed 06/15/2023 Active Encounters Date Type Department Care Team Description 09/04/2024 11:00 AM EDT Office Visit Orthopedic Surgery [facility] [address] [phone] Giacomo Salter DPM Controlled type 2 diabetes with neuropathy (CMS/HCC V24, CMS/HCC V28) (Primary Dx); Arthritis of both feet; Metatarsalgia [...] - - Weight 73.9 kg (163 lb) 09/04/2024 11:07 AM EDT Height 170.2 cm (5' 7.01 ) 09/04/2024 11:07 AM E DT Body Mass Index 25.52 09/04/2024 11:07 AM EDT Plan of Treatment Upcoming Encounters Date Type Department Care Team ([facility] st Contact Info) Description 12/04/2024 10:45 AM EDT Office Visit Orthopedic Surgery - [place] 250 175 [facility] 250 [place] [phone] Giacomo Salter, DPVictoria 175 [facility] 250 [place] [address] Health Maintenance Due Date Last Done Comments Diabetes: Annual Foot Exam 1977 Diabetes: Annual Retina Eye Exam 1977 Hepatitis B Vaccines (1 of 3 - 19+ 3-dose series) 1986 Zoster Vaccines (1 of 2) 2017 Colorectal Cancer Screening: Colonoscopy 12/21/2023 Social Influencers of Health Screening 12/21/2023 Diabetes: Annual Urine Albumin-Creatinine Ratio (uACR) 06/06/2024 Diabetes: Annual GFR (Glomerular Filtration Rate) 08/18/2024 08/19/2023 Depression Screening 12/13/2024 12/14/2023 Diabetes: Blood Sugar Control Test (HGBA1C) 01/27/2025 07/27/2024, 03/14/2024, 08/03/2023 Cholesterol Screening (Lipid Panel) 03/14/2026 03/14/2021 DTaP,Tdap,and [...] on patient's age to complete this topic Hepatitis A Vaccines Aged Out No long er eligible based on patient's age to complete this topic IPV Vaccines Aged Out No longer eligi ble based on patient's age to complete this topic MMR Vaccines Aged Out No longer eligi ble based on patient's age to complete this topic Meningococcal ACWY Vaccine Aged Out N o longer eligible based on patient's age to complete this topic Meningococcal B Vaccine Aged Out No l onger eligible based on patient's age to complete [...] * Annual BMP Blood Test (08/19/2023) Pathologist [facility] Annual BMP Blood Test Abstracted Result [facility] Provider HEALTH MAINTENANCE Final Result * HIV Screening (08/11/2023) [facility] HIV Screening Abstracted [facility] Provider HEALTH MAINTENANCE Final Result * Hepatitis C Screening (08/11/2023) [facility] Hepatitis C Screening Abstracted [facility] Provider HEALTH MAINTENANCE Final Result * Hemoglobin A1c (08/03/2023) [facility] Hemoglobin A1C 0.0 % Comment:No interpretation Blood Venous blood specimen / Unknown Result [facility] Provider LAB BLOOD ORDERABLES Carrie l Result * Lipid panel (03/14/2021) [facility] LDL/HDL Ratio 0 Comment:No interpretation Triglycerides 0 mg/dL Comment:No interpretation Cholesterol 0 mg/dL Comment:No interpretation HDL 0 mg/dL Comment:No interpretation LDL Cholesterol 0 mg/dL Comment:No interpretation Blood Venous blood specimen / Unknown Historical Provider LAB BLOOD ORDERABLES Carrie black Result from Last 3 Months or Most Recently Relevant to Health Maintenance Insurance MEDICAID - [place] Care Teams Paid Search Marketing Analyst Relationship Specialty Start Date End Date Name, MD Lucien [address] [place], [place] PCP - General 05/05/23
--- OUTSIDE RECORDS SUMMARY | 2024-09-05 13:19 | XMS_ITS | Encounter Summary ---
Author Organization [facility] Address [address] [place] [phone] Care Team Providers Care Multiple Punch Press Operator Name Role Phone Name, Lucien REAL Primary Care Provider [phone] Reason for Visit * Reason Comments DM Foot Care FU B/L FOOT CALLUSES Encounter Details Date Type Department Care Team (Late st Contact Info) Description 09/04/2024 11:00 AM EDT Office Visit Orthopedic Surgery - [facility] [address] [phone] Giacomo Salter DPM [address] [phone] Controlled type 2 diabetes with neuropathy (CMS/HCC V24, CMS/HCC V28) (Primary Dx); Arthritis of both feet; Metatarsalgia of left foot; Hammertoes of both feet; Dermatophytosis, nail Social History Tobacco Use Types Packs/Day Years Used Date Smoking Tobacco: Never Assessed Sex and Gender Information Value Date Recorded Sex Assigned at Not on file Legal Sex Male 2:17 AM EST Gender Identity Not on file Sexual Orientation Not on file documented as of this encounter Last Filed Vital Signs Vital Sign Reading Time Taken Comments Blood Pressure - - Pulse - - Temperature - - Respiratory Rate - - Oxygen Saturation - - Inhaled Oxygen Concentration - - Weight 73.9 kg (163 lb) 09/04/2024 11:07 AM EDT Height 170.2 cm (5' 7.01 ) 09/04/2024 11:07 AM E DT Body Mass Index 25.52 09/04/2024 11:07 AM EDT documented in this encounter Progress Notes * Giacomo Salter DPM - 09/04/2024 11:00 AM EDT Referring MD: Flakito Last PCP visit: 05/22/2024 IDENTIFIER: @TITLE@ Shmuel is a 59 y.o. year old male who presents for consultation. CC: Bilateral foot pain HPI: 59-year-old diabetic male returns to office for chief complaint of bilateral foot pain. Patient notes that his nails continue to be thickened and misshapened causing rubbing in close toed shoes. Patient notes he has a feeling of ingrowing toenail to the medial lateral border of quite a few of his lesser digits. Patient relates that he gets some tingling numbness within his feet from time to time.Patient is also concerned with a callus to the plantar aspect of the lateral foot. Patient notes his sugar today was unchecked Patient does not recall his most recent A1c ROS: GENERAL: Pt denies nausea, fever, vomiting, chills, or shortness of breath. Pt in NAD. CARDIOLOGY: pt denies chest pain, palpitations LUNGS: pt denies shortness of breath MUSCULOSKELETAL: See HPI, otherwise no joint pain or swelling, back pain, or muscle pain. SKIN: see HPI, otherwise no lesions, rash or itching NEURO: No persistent headache, weakness or numbness The remainder of the review of systems is noncontributory PAST MEDICAL HISTORY: There is no problem list on file for this patient. SOCIAL HISTORY: Social History Tobacco Use Smoking status: Not on file Smokeless tobacco: Not on file Substance Use Topics Alcohol use: Not on file ACTIVE MEDICATIONS: Outpatient Medications Marked as Taking for the 09/04/24 encounter (Office Visit) with Giacomo Salter DPM Medication Sig Dispense Refill ammonium lactate (LAC-HYDRIN) 12 % lotion Apply to soles of feet daily. At night wear socks to bed ALLERGIES: @ALL@ PHYSICAL EXAM: Height 1.702 m (67.01 ), weight 73.9 kg (163 lb). PODIATRIC EXAMINATION: GENERAL: Patient appears well nourished, with NAD. VASCULAR: Dorsalis pedis pulses are 2/4 bilaterally and Posterior tibial pulses are 0/4 bilaterally. Capillary filling time within normal limits the digits. No pallor on elevation or rubor on dependency. Positive hair growth. Few varicosities. Denies rest pain or claudication pain. NEUROLOGICAL: Sharp/dull sensation diminished, protective sensation diminished on [place]. Multipleperipheral neuropathies bilaterally. ORTHOPEDIC: Good muscle strength 5/5 of all flexors and extensors. Dorsi flexion of ankle ,10 degrees, plantar flexion WNL. No muscle atrophy. Many arthritic changes to the midfoot bilaterally with dorsal exostoses. Rigidly contracted hammertoes 2 through 5 bilaterally. Continued pain on the submetatarsal region 3 4 and 5 bilaterally left greater than right. DERMATOLOGICAL:.Callus formations to the plantar aspect of the feet bilaterally. Normal skin temperature, normal skin turgor. Nails are elongated dystrophic discolored x 10 with subungual debris. BIOMECHANICS: STJ ROM wnl, MTJ ROM wnl, 1st MPJ ROM wnl. IMPRESSION: 1. Controlled type 2 diabetes with neuropathy (CMS/HCC V24, CMS/HCC V28) 2. Arthritis of both feet 3. Metatarsalgia of left foot 4. Hammertoes of both feet 5. Dermatophytosis, nail PLAN: Pt was seen and examined, history reviewed. Patient was encouraged to start checking his sugar as this can help determine risk for nonhealing wounds and infections in the future Patient was educated on the arthritic changes of the midfoot as well as allergic contractures of digits. Patient encouraged to use a topical anti-inflammatory as well as proper shoe gear to limit thesymptoms associated with arthritic changes Patient understands that with the increased pressure to the plantar aspect of the left foot he should be using a reverse dancers pad. Patient was shown and educated on the reverse dancers pad during his visit Nail debridement performed to nails 1-5 bilateral as nails were described to be causing pain and difficulty for walking while in shoegear at their previous length. They were debrided in thickness andlength, with no incident. Clinical evidence of mycosis is documented which required active treatment. Patient expressed immediate relief. Patient is to RTC in 9 weeks Has ammonium lactate in his possession and was instructed to be more consistent with using a daily Giacomo Salter DPM documented in this encounter Plan of Treatment Upcoming Encounters Date Type Department Care Team (Late st Contact Info) Description 12/04/2024 10:45 AM EDT Office Visit Orthopedic Surgery - [facility] 250 175 [facility] 250 [place] [phone] Giacomo Salter, DPVictoria 175 [facility] 250 [place] [address] documented as of this encounter Visit Diagnoses Diagnosis Controlled type 2 diabetes with neuropathy ([facility] V24, [facility] V28)- Primary Type II or unspecified type diabetes mellitus with neurological manifestations, not stated as uncontrolled Arthritis of both feet Metatarsalgia of left foot Hammertoes of both feet Dermatophytosis, nail Dermatophytosis of nail documented in this encounter Care Teams Multiple Punch Press Operator Relationship Specialty Start Date End Date Name, MD Lucien 4 [place], [place] PCP - General 05/05/23 documented as of this encounter
--- OUTSIDE RECORDS SUMMARY | 2024-09-05 13:19 | XMS_ITS | Encounter Summary ---
Author Organization [employer] Address [address] [facility] 7t [place] [address] Care Team Providers Care Corn Lab Technician Name Role Phone Name, Lucien REAL Primary Care Provider [phone] Reason for Visit * Reason Onset Date Comments ER Follow-up 03/15/2023 Encounter Details Date Type Department Care Team ([facility] Contact Info) Description 03/15/2023 Telephone [facility] MEDICINE 230 [place], [place] [phone] Name, MD Lucien 230 [place] [address] ER Follow-up Social History Tobacco Use Types Packs/Day Years Used Date Smoking Tobacco: Every Day Cigarettes 0.5 34 Passive Smoke Exposure: Current Smokeless Tobacco: Never Alcohol Use Standard Drinks/Week Comments Not Currently 0 (1 standard drink = 0.6 oz pur e alcohol) Depression Answer Date Recorded Patient Health Questionnaire-9 Score 4 08/27/2022 Housing Stability Answer Date Recorded What is your housing situation today? I have marcelo avila 03/12/[address] you li ve. Do you have problems with any of the following? None of the above 03/12/2023 Food Insecurity Answer Date Recorded Within the past 12 months, y ou worried that your food would run out before you got money to buy more: Never True 03/12/2023 Within the past 12 months,th e food you bought just didn't last and you didn't have enough money to get more: Never True Transportation Answer Date Recorded In the past 12 months, has l ack of transportation kept you from medical appts, meetings, work or from getting things needed for daily living? No 03/12/2023 Utilities Answer Date Recorded In the past 12 months, has t he electric, gas, oil or water company threatened to shut off services in your home? No 03/12/2023 Depression Answer Date Recorded Patient Health Questionnaire-2 Score 2 08/27/2022 Sex and Gender Information Value Date Recorded Sex Assigned at Male 03/23/2022 10:15 AM EDT Legal Sex Male 10:15 AM EDT Gender Identity Male 03/23/2022 10:15 AM EDT Sexual Orientation Choose not to disclose 2021 10:15 AM EDT documented as of this encounter Miscellaneous Notes * Telephone Encounter - Denis Rees RN - 03/16/2023 10:36 AM EDT T/C x 1 am to pt. On [phone] for below message, No answer. LVM to call back on [phone]. * Telephone Encounter - Marilyn Cabral - 03/15/2023 1:59 PM EDT Tc from [facility] with [facility] calling to report pt ED visit on 03/13/2023 at [facility]. Seen for ankle sprain. Ha advised will forward to team nurse for follow up. Please call Ha for appt [phone] documented in this encounter Plan of Treatment Not on file documented as of this encounter Visit Diagnoses Not on filedocumented in this encounter Additional Health Concerns Assessment Noted Time PHQ-9 Depression Total Score: 4 08/28/19 23 3:18 PM EDT documented as of this encounter Care Teams Corn Lab Technician Relationship Specialty Start Date End Date Name, MD Lucien [address] [place] [address] PCP - General Family Medicine 08/07/15 documented as of this encounter
--- OUTSIDE RECORDS SUMMARY | 2024-09-05 13:19 | XMS_ITS | Encounter Summary ---
Author Organization [employer] Address [address] [facility] [address] [place] [address] Care Team Providers Care Ceiling Insulation Blower Name Role Phone Name, Lucien REAL Primary Care Provider [phone] Encounter Details Date Type Department Care Team (Late st Contact Info) Description 07/11/2024 Telephone [facility] MEDICINE 230 [place], [place] [phone] Name, MD Lucien 230 [place], [place] [phone] Social History Tobacco Use Types Packs/Day Years [...] documented as of this encounter Care Teams Ceiling Insulation Blower Relationship Specialty Start Date End Date Name, MD Lucien [address] [place] [address] PCP - General Family Medicine 08/07/15 documented as of this encounter
--- OUTSIDE RECORDS SUMMARY | 2024-09-05 13:19 | XMS_ITS | Encounter Summary ---
Author Organization [employer] Address [address] [facility] 7t [place] [address] Care Team Providers Care Naphthalene Operator Name Role Phone Name, Lucien REAL Primary Care Provider [phone] Reason for Visit * Reason Onset Date Comments Med Refill 06/11/2023 Encounter Details Date Type Department Care Team ([facility] st Contact Info) Description 06/11/2023 Telephone [facility] MEDICINE 230 [place], [place] [phone] Name, MD Lucien [address] [place] [address] Med Refill Social History Tobacco Use Types Packs/Day Years [...] encounter Miscellaneous Notes * Telephone Encounter - Teresa Carlton LPN - 06/11/2023 10:26 AM EST Medication was sent to [facility][id number] today. * Telephone Encounter - Marilyn Cabral - 06/11/2023 10:22 AM EST TC from pt requesting medication refill. Medications needing refill : empagliflozin (Jardiance) 10 MG ( To be sent to: [facility]/pharmacy #[id number] - [address] documented in this encounter Plan of Treatment Not on file documented as of this encounter Visit Diagnoses Not on filedocumented in this encounter Additional Health Concerns Assessment Noted Time PHQ-9 Depression Total Score: 4 08/28/19 23 3:18 PM EDT documented as of this encounter Care Teams Naphthalene Operator Relationship Specialty Start Date End Date Name, MD Lucien [address] [place] [address] PCP - General Family Medicine 08/07/15 documented as of this encounter
--- OUTSIDE RECORDS SUMMARY | 2024-09-05 13:19 | XMS_ITS | Encounter Summary ---
Author Organization [employer] Address [address] [facility] 7t [place] [address] Care Team Providers Care Janitorial Services Supervisor Name Role Phone Name, Lucien REAL Primary Care Provider [phone] Reason for Visit * Reason Comments Med Refill Encounter Details Date Type Department Care Team ([facility] st Contact Info) Description 03/22/2023 Refill [facility] MEDICINE 230 [place], [place] [phone] Name, MD Lucien 230 [place] [address] High cholesterol; Asthma, unspecified asthma severity, unspecified whether complicated, unspecified whether persistent; Heartburn Social History Tobacco Use Types Packs/Day Years [...] as of this encounter Visit Diagnoses Diagnosis High cholesterol Pure hypercholesterolemia Asthma, unspecified asthma severity, unspecified whether complicated, unspecified whether persistent Heartburn documented in this encounter Additional Health Concerns Assessment Noted Time PHQ-9 Depression Total Score: 4 08/28/19 23 3:18 PM EDT documented as of this encounter Care Teams Janitorial Services Supervisor Relationship Specialty Start Date End Date Name, MD Lucien [address] [place] [address] PCP - General Family Medicine 08/07/15 documented as of this encounter
--- OUTSIDE RECORDS SUMMARY | 2024-09-05 13:19 | XMS_ITS | Encounter Summary ---
Author Organization [employer] Address [address] [facility] 7t [place] [address] Care Team Providers Care Mortgage Consultant Name Role Phone Name, Lucien REAL Primary Care Provider [phone] Reason for Visit * Reason Onset Date Comments FYI 11/22/2023 Encounter Details Date Type Department Care Team ([facility] st Contact Info) Description 11/22/2023 Telephone [facility] MEDICINE 230 [place], [place] [phone] Name, MD Lucien [address] [place], [place] [phone] FYI Social History Tobacco Use Types Packs/Day Years [...] Telephone Encounter - Denis Rees RN - 11/22/2023 3:51 PM EDT IRISI T/C to teresa for below message to asked if pt. Would like another flavour, Teresa states they try another flavour also but pt. Denies. * Telephone Encounter - Lauren Madrid - 11/22/2023 3:41 PM EDT Tc from teresa with [facility] calling to advise provider they received the chocolate ensures but pt is refusing. Will fax DC form. documented in this encounter Plan of Treatment Not on file documented as of this encounter Visit Diagnoses Not on filedocumented in this encounter Additional Health Concerns Assessment Noted Time PHQ-9 Depression Total Score: 4 08/28/19 23 3:18 PM EDT documented as of this encounter Care Teams Mortgage Consultant Relationship Specialty Start Date End Date Name, MD Lucien [address] [place] [address] PCP - General Family Medicine 08/07/15 documented as of this encounter
--- OUTSIDE RECORDS SUMMARY | 2024-09-05 13:19 | XMS_ITS | Encounter Summary ---
Author Organization [employer] Address [address] [facility] 7t [place] [address] Care Team Providers Care Bed And Breakfast Operator Name Role Phone Name, Lucien REAL Primary Care Provider [phone] Reason for Visit * Reason Onset Date Comments triage 08/13/2022 Encounter Details Date Type Department Care Team ([facility] st Contact Info) Description 08/13/2022 Telephone [facility] [address] [place], [place] [phone] Name, MD Lucien [address] [place], [place] [phone] triage Social History Tobacco Use Types Packs/Day Years Used Date Smoking Tobacco: Never Assessed Sex and Gender Information Value Date Recorded Sex Assigned at Male 03/23/2022 10:15 AM EDT Legal Sex Male 10:15 AM EDT Gender Identity Male 03/23/2022 10:15 AM EDT Sexual Orientation Choose not to disclose 2021 10:15 AM EDT documented as of this encounter Miscellaneous Notes * Telephone Encounter - Evangelina Vera RN - 08/13/2022 11:57 AM EDT Triage call unable to reach Pt, phone isn't working. transportation worker Yanni is contacted, apt is made with [facility] 08/27 @ 330pm for request for referral to orthopedic. Protocol Used: Knee Pain (Adult) Protocol-Based Disposition: See in Office or Video Visit within 2 Weeks Video visit not offered Positive Triage Question: * Knee pain is a chronic symptom (recurrent or ongoing AND lasting > 4 weeks) * All higher-acuity triage questions were negative Care Advice Discussed: * Reassurance and Education - Knee Pain * Pain Medicines * Pain Medicines - Extra Notes and Warnings * Reasons To Call Back - Moderate pain (e.g., limping) lasts more than 3 days - Mild pain lasts more than 7 days - Signs of infection occur (e.g., spreading redness, warmth, fever) - You become worse * Telephone Encounter - Mitchell Henriquez - 08/13/2022 11:07 AM EDT Symptom: Knee Pain - Not From Injury Outcome: Schedule an urgent appointment (within 1 hour) or talk to a nurse or provider soon Reason: Trouble walking The caller accepted this outcome documented in this encounter Plan of Treatment Not on file documented as of this encounter Visit Diagnoses Not on filedocumented in this encounter Care Teams Bed And Breakfast Operator Relationship Specialty Start Date End Date Name, MD Lucien [address] [place] [phone] PCP - General Family Medicine 08/07/15 documented as of this encounter
--- OUTSIDE RECORDS SUMMARY | 2024-09-05 13:19 | XMS_ITS | Clinical Summary ---
Author Organization [employer] Address [address] [facility] 7t [place] [address] Care Team Providers Care Director Operating Room Name Role Phone Name, Lucien REAL Primary Care Provider [phone] Allergies No known active allergies Medications carbamide peroxide (Debrox) 6.5 % otic solution Administer 5 drops into affected ear(s) 2 times daily. For 1 week 1 Active clonazePAM (KlonoPIN) 1 MG tablet Take 1 mg by mouth 2 times daily. 3 Active cloZAPine (Clozaril) 100 MG tablet TAKE TWO (2) TABLETS BY MOUTH EVERY MORNING AND FIVE (5) TABLETS AT BEDTIME 3 Active docusate sodium (Colace) 100 MG capsule Take 1 capsule by mouth if needed each day. 3 Active nicotine polacrilex (Commit) 4 MG lozenge Take 1 tablet by mouth every 2 (two) hours. 1 Active nicotine (Nicoderm, Step 3) 7 MG/24HR patchIndications: Cigarette nicotine dependence without complication PLACE 1 PATCH ON THE SKIN 1 TIME EACH DAY AT THE SAME TIME. 28 patch 3 Active albuterol 108 (90 Base) MCG/ACT inhalerIndication s:Moderate persistent asthma without complication Inhale 2 puffs every 6 (six) hours if needed for wheezing. 18 g 11 4 01/26/20 25 Active Acetaminophen Extra Strength 500 MG tabletIndications :Back strain, initial encounter TAKE 1 TABLET BY MOUTH EVERY 6 HOURS NEEDED FOR PAIN 30 tablet 2 4 Active metFORMIN (Glucophage) 500 MG tablet Take 1 tablet (500 mg) by mouth with breakfast and with evening meal. 180 tablet 3 4 03/14/20 25 Active atorvastatin (Lipitor) 20 MG tabletIndications :High cholesterol TAKE 1 TABLET BY MOUTH EVERY DAY 90 tablet 1 4 Active montelukast (Singulair) 10 MG tabletIndications :Asthma, unspecified asthma severity, unspecified whether complicated, unspecified whether persistent TAKE 1 TABLET BY MOUTH EVERY DAY IN THE EVENING 90 tablet 1 4 Active omeprazole (PriLOSEC) [address] capsuleIndication s:Heartburn TAKE 1 CAPSULE BY MOUTH EVERY DAY 90 capsule 1 4 Active apixaban (Eliquis) 5 MG tablet TAKE 1 TABLET BY MOUTH TWICE A DAY 60 tablet 3 5 Active Active Problems Problem Noted Date Diagnosed Date Anticoagulated 07/27/2024 Atherosclerosis of abdominal aorta 07/13/2023 Assessment & Plan (07/13/2023 7:26 PM EST): Finiding on 07/17 ct, continue statin Cigarette nicotine dependence without complicati on 09/28/2022 Assessment & Plan (07/13/2023 7:27 PM EST): Has patches, reviewed appropriate usage Acute deep vein thrombosis ( DVT) of femoral vein of right lower extremity 09/28/2022 Overview (05/09/2024): Unexplained DVT, normal PSA, negative CT angiogram of the abdomen/pelvis/chest at time of diagnosis in [facility] on August 2022. Colonoscopy still pending as of 03/14/2024. He follows at [facility] hematology and is on Eliquis Chest pain 04/07/2017 Diabetes mellitus 11/02/2013 Assessment & Plan (07/13/2023 7:29 PM EST): Denies lows, glucometer reveals random sugars in 150s range, disease case manager denies lows Continue current regimen Schizophrenia 04/11/2013 Assessment & Plan (07/13/2023 7:27 PM EST): Endorses auditory hallucinations but feels safe, in close care with psychiatry and [facility] rn program Resolved Problems Problem Noted Date Diagnosed Date Resolved Date Anemia 08/13/2023 07/27/2024 Unintentional weight loss 07/13/2023 Assessment & Plan (07/13/2023 11:42 AM EST): Concerning for malignancy. Upcoming GI appointment 08/08 Chest x-ray and labs ordered, pt unable to report history of symptoms due to psychiatric illness. Low threshold for chest ct pending x-ray results Foot pain, bilateral 01/30/2023 024 Assessment & Plan (01/30/2023 5:18 PM EDT): -Feet: examined sole and dorsum of both feet, w no ulcers, no erythema, no breaks, no discharge. Noted thick, long toenails and small callus on dorsum of great L toe (1st metatarsal). -Explained to pt today that I cannot cut his toenail or fix his callus here in [facility] and advise that he f up w chief electrician. Per caregiver pt has apt w chief electrician in 2 wk, Dr. Rolando Jimenez on 02/11/2023 in [place]. -Despite these explanations, pt got very upset and left the examining room. -I advised pt to examine his feet daily and use creams to keep them hydrated, and to return if there is a break on skin or signs of infection. Impacted cerumen 08/27/2022 03/14/2024 Smoker 11/02/2013 09/28/2022 Neck pain 07/11/2013 03/14/2024 Encounters Date Type Department Care Team Description 09/05/2024 Orders Only GENERIC EXTERNAL DATA DEPARTMENT Provider, Generic External Data 08/04/2024 Population Health Risk [facility] Department [address] [phone] Provider, Population Health Generic 07/27/2024 11:15 AM EST Office Visit [facility] [address] [place] [phone] Name, MD Lucien Type 2 diabetes mellitus without complication, without long-term current use of insulin ([facility]) (Primary Dx); On statin therapy; Anticoagulated 07/27/2024 Travel 07/13/[address] [facility] [address] [place] [address] NameLucien MD 07/11/[address] [facility] [address] [place] [phone] Lucien Morales MD Call Back Request 07/11/[address] [facility] [address] [place] [address] Lucien Morales MD 06/22/[address] [address] Orin Hameed RN 06/22/[address] [address] Lucien Morales MD FYI 06/13/[address] [phone] Lucien Morales MD Medication Question from Last 3 Months Immunizations Name Administration Dates Next Due Influenza Injectable Quadriv alant Preservative Free IIV4 MDCK 03/21/2018 Influenza injectable quadriv alent IIV4 with preservative 04/07/2017 Influenza injectable quadriv alent preservative free 04/29/2023,02/17/2021,03/14/2019,06/23 Influenza, Split (incl. lewis fied surface antigen) 04/06/2013 Influenza, seasonal, injecta ble, preservative free 03/14/2024 Pfizer Covid-19 Vaccine 12+ 03/14/2024 Pneumococcal Conjugate PCV 20 04/29/2023 Pneumococcal Polysaccharide PPSV23 07/05/2017 Rabies - IM Fibroblast Culture 12/11/2021 Tdap 12/11/2021,06/23/2016 Social History Tobacco Use Types Packs/Day Years Used Date Smoking Tobacco: Every Day Cigarettes 0.5 34 Passive Smoke Exposure: Current Smokeless Tobacco: Never Tobacco Cessation:Ready to Q uit: Not Asked; Counseling Given: Not Answered Alcohol Use Standard Drinks/Week Comments Not Currently 0 (1 standard drink = 0.6 oz pur e alcohol) Depression Answer Date Recorded Patient Health Questionnaire-9 Score 0 12/14/2023 Patient Health Questionnaire-9 Score 0 12/14/2023 Last PHQ-9: Questionnaire Data Not on file 0 12/14/2023 Housing Stability Answer Date Recorded What is your housing situation today? I have marcelo sing 12/14/[address] you li [...] not to disclose 2021 10:15 AM EDT Last Filed Vital Signs Vital Sign Reading Time Taken Comments Blood Pressure 126/84 07/27/2024 11:14 AM EST Pulse 105 07/27/2024 11:14 AM EST Temperature 37.2 ??C (98.9 ??F) 07/27/2024 11:[address] Respiratory Rate 26 07/27/2024 11:14 AM EST Oxygen Saturation 98% 07/27/2024 11:14 AM EST Inhaled Oxygen Concentration - - Weight 72.1 kg (159 lb) 07/27/2024 11:14 AM EST Height 177.8 cm (5' 10 ) 07/27/2024 11:14 AM EST Body Mass Index 22.81 07/27/2024 11:14 AM EST Plan of Treatment Health Maintenance Due Date Last Done Comments CT Colonography 1967 Colonoscopy 1967 Colorectal Cancer Screening 1967 FIT DNA/Cologuard 1967 FIT 1967 FOBT 1967 Sigmoidoscopy 1967 Diabetes: Urine Protein Screening 1986 Hepatitis B Vaccines (1 of 3 - 19+ 3-dose series) 1986 Zoster Vaccines (1 of 2) 2017 Lipid Panel 03/14/2022 03/14/2021 Diabetes: Foot Exam 07/13/2024 07/13/2023, 07/13/2023, 07/13/2023, Additional history exists Diabetes: Hemoglobin A1C 10/27/2024 025, 03/14/2024, 08/03/2023, Additional history exists Alcohol/Substance Use Screening 12/13/2024 12/14/2023 Depression Screening 12/13/2024 12/14/2023, 12/14/19 24 SDOH Screening 12/13/2024 12/14/2023 Eye Exam 06/14/2025 06/14/2023 Tobacco Screening 07/27/2025 07/27/2024 DTaP/Tdap/Td Vaccines (3 - Td or Tdap) 12/12/2031 12/11/2021, 06/23/2016 RSV Patients and Patients Aged 60 years or older (1 - 1-dose 75+ series) 2042 Pneumococcal Vaccine: 50+ Years Completed 04/29/2023, 07/05/2017 HIV Screening Completed 08/11/2023, 08/03/2023 Hepatitis C Screening Completed 08/11/2023, 024 COVID-19 Vaccine Completed 03/14/2024, , 11/04/2020 Influenza [...] patient's age to complete this topic Meningococcal Vaccine Aged Out No libertad liana eligible based on patient's age to complete this topic RSV under 20 months Aged Out No longe r eligible based on patient's age to complete this topic Rotavirus Vaccines Aged Out No longer eligible based on patient's age to complete this topic Procedures Procedure Name Priority Date/Time Associated Diagnosis Comments CBC WITH AUTO DIFFERENTIAL Routine 09/05/2024 11:06 AM EDT POCT GLYCATED HEMOGLOBIN, TOTAL Routine 07/27/2024 11:16 AM EST Type 2 diabetes mellitus without complication, without long-term current use of insulin (CMS/HCC) POCT GLUCOSE Routine 07/27/2024 11:16 AM EST Type 2 diabetes mellitus without complication, without long-term current use of insulin (CMS/HCC) HEPATITIS C ANTIBODY Routine 08/11/2023 10:35 AM EDT Unintentional weight loss HIV 1/2 ANTIGEN/ANTIBODY, FOURTH GENERATION W/RFL Routine 08/11/2023 10:35 AM EDT Unintentional weight loss ZZZ HISTORICAL LIPID PANEL Routine 03/14/2021 9:49 AM EDT from Last 3 Months or Most Recently Relevant to Health Maintenance Results * (ABNORMAL) CBC auto differential (09/05/2024 11:06 AM EDT) White Blood Count 5.6 4.8 - 10.8 X10*3/uL [facility] Red Blood Count 4.08(L) 4.60 - 5.80 X10*6/uL [facility] Hemoglobin 12.2(L) 14.0 - 18.0 g/dl [facility] Hematocrit 38.0(L) 42.0 - 52.0 % [facility] Mean Corpuscular Volume 93.1 80.0 - 98.0 fL [facility] Mean Corpuscular Hemoglobin 29.9 27.0 - 33.0 pg [facility] Mean Corpuscular HGB Conc 32.1 31.0 - 36.0 g/dl [facility] Red Cell Distribution Width 13.5 11.0 - 16.0 % [facility] Platelet Count 150(L) 160 - 400 X10*3/uL [facility] Mean Platelet Volume 11.1 9.4 - 12.4 fL [facility] Neutrophils Percent Auto 50.6 45 - 73 % [facility] Imm Gran Pct Auto 0.2 0.0 - 0.4 % [facility] Lymphocytes Percent Auto 42.9(H) 20 - 40 % [facility] Monocytes Percent Auto 5.6 2 - 11 % [facility] Eosinophils Percent Auto 0.0 0 - 4 % [facility] Basophils Percent Auto 0.7 0 - 2 % [facility] NRBC Pct Auto 0.0 0.0 - 0.2 /100WBC [facility] Neutrophils Absolute Auto 2.8 2.0 - 8.3 x10*3/uL [facility] Imm Gran Abs Auto 0.01 0.00 - 0.03 X10*3/uL [facility] Lymphocytes Absolute Auto 2.4 1.2 - 4.9 X10*3/uL [facility] Monocytes Absolute Auto 0.3 0.1 - 1.2 X10*3/uL [facility] Eosinophils Absolute Auto 0.0 0.0 - 0.4 X10*3/uL [facility] Basophils Absolute Auto 0.0 0.0 - 0.2 X10*3/uL [facility] NRBC Abs Auto 0.000 0.0 - 0.012 X10*3/uL [facility] 09/05/2024 11:0 6 AM EDT 09/05/2024 11:06 AM EDT us Generic External Data Provider LAB BLOOD ORDERAB LES Final Result [facility] [address] [place] [address] [phone] * (ABNORMAL) POCT HGB A1C (07/27/2024 11:16 AM EST) Hemoglobin A1C 7.1(A) 4.0 - 6.0 % QC Media Lot # [id number] Lot# Expiration Date [id number] Blood 07/27/2024 11:1 6 AM EST us Lucien Morales MD POINT OF CARE TEST ENTER/EDIT OR DERABLES Final Result * (ABNORMAL) POCT Glucose (07/27/2024 11:16 AM EST) [facility] Glucose Blood, POC 339(A) 60 - 200 mg/dL QC Media Lot # [id number] Lot# Expiration Date [id number] Blood Capillary blood specimen / Unknown 07/27/2024 11:16 AM EST Result [facility] us Lucien Morales MD POINT OF CARE TEST ENTER/EDIT OR DERABLES Final Result * Hepatitis C Ab (08/11/2023 10:35 AM EDT) [facility] Hepatitis C Antibody Nonreactive Nonreactive [facility] Comment:Antibodies to HCV no t detected; does not exclude early acuteHCV infection. Blood Venous blood specimen / Unknown 08/11/2023 10:35 AM EDT 08/11/2023 10:36 AM EDT Rosi Navarro NP LAB BLOOD ORDERABLES Final Resul t [facility] [address] [place] [phone] * HIV-1/2 Antigen and Antibodies, Fourth Generation, with Reflexes (08/11/2023 10:35 AM EDT) [facility] HIV AB/AG Nonreactive Nonreactive [facility] Comment:HIV-1 p24 Ag and/or HIV-1/HIV-2 Ab not detected.A test result that is nonreactive does not exclude thepossibility of exposure to or infection with HIV-1 and/orHIV-2. Nonreactive results in this assay for individualswith prior exposure to HIV-1 and/or HIV-2 may be due toantigen and antibody levels that are below the limit ofdetection of this assay.The [employer] HIV Ag/Ab Combo assay result andsupplemental assay results should be interpreted inconjunction with the patient's clinical presentation,history and other laboratory results. If the results areinconsistent with clinical evidence, additional testing issuggested to confirm the result. Blood Venous blood specimen / Unknown 08/11/2023 10:35 AM EDT 08/11/2023 10:36 AM EDT us Rosi Navarro ARTIST REPRESENTATIVE LAB BLOOD ORDERABLES Final Resul t [facility] [address] [place] [phone] * (ABNORMAL) LIPID PANEL (03/14/2021 9:49 AM EDT) Cholesterol 103 mg/dL [facility] Comment: Desirable Cholesterol: ?less than 200 mg/dL Borderline High Cholesterol: ??200-239 mg/dL High Cholesterol: ? greater than 239 mg/dL HDL Cholesterol 32 mg/dL [facility] Comment: Desirable HDL: ??greater than 40 mg/dL ?? Note: This HDL assay may give artificially ? low results in patients with liver disease. LDL Cholesterol Calculated 37 mg/dl [facility] Comment: Desirable LDL: ? less than 100 mg/dL Near Optimal/Above Optimal LDL: ??110-129 mg/dL Borderline High LDL: ? 130-159 mg/dL High LDL: ?160-189 mg/dL Very High LDL: ? greater than or equal to ?190 mg/dL Triglycerides 171 mg/dL [facility] Comment: Desirable Triglyceride: ? less than 150 mg/dL Borderline High Triglyceride ??150-199 mg/dL High Triglyceride: ?200-499 mg/dL Very High Triglyceride: ? greater than or equal to ? 5OO mg/dL Alanine Aminotransferase 25 0 - 40 U/L [facility] Albumin Level 3.9 3.5 - 5.0 g/dL [facility] Alkaline Phosphatase 103 39 - 117 U/L [facility] Anion Gap 11(L) 12 - 20 [facility] Aspartate Amino Transferase 25 5 - 37 U/L [facility] Bilirubin Total 0.6 0.0 - 1.0 mg/dL [facility] Blood Urea Nitrogen 10 9 - 16 mg/dL [facility] Calcium 8.9 8.4 - 10.2 mg/dL [facility] Carbon Dioxide 27 22 - 29 mmol/L [facility] Chloride 106 96 - 108 mmol/L [facility] Creatinine, Serum 0.81 0.5 - 1.4 mg/dL [facility] Estimated Glomerular Filt Rate >60 [facility] Comment: NOTE: ??For -Argent[place] individuals, multiply the result ?by 1.210. ?? Chronic Kidney Disease: ??Estimated GFR < 60 mL/min/1.73m2 Severe Kidney Disease: ??Estimated GFR < 15 mL/min/1.73m2 Glucose Random 161(H) 60 - 115 mg/dL [facility] Potassium 4.2 3.3 - 5.1 mmol/L [facility] Sodium 140 135 - 145 mmol/L [facility] Total Protein 6.3(L) 6.5 - 8.0 g/dL [facility] 03/14/2021 9:49 AM EDT us Lucien Name HISTORICAL/NON ORDERABLE LABS Fi nal Result [facility] [address] [place] [phone], from Last 3 Months or Most Recently Relevant to Health Maintenance Insurance [facility] C3 Advance Directives Documents on File Type Date Recorded Patient Cabinet Worker Expl anation Power of Protein Specialist 09/09/2023 Power of A ttorney Care Teams Director Operating Room Relationship Specialty Start Date End Date Name, MD Lucien [address] [place] [address] PCP - General Family Medicine 08/07/15
== END 2024-09-05 10:56 | disposition home or self-care (01) ==
LOC: HO.LABR 10:55
PROVIDERS: PCP Internal Medicine Geriatric Medicine; Visit Provider Psychiatry & Neurology Psychiatry
DX: Z79.899 Other long term (current) drug therapy (principal)
CPT/HCPCS: 36415; 85025

== ENCOUNTER 2024-11-17 09:45 | Outpatient (REF) | payer MEDICAID, SELFPAY ==
[2024-11-17 09:58] LABS: MANUAL DIFF FLAG NO
--- OUTSIDE RECORDS SUMMARY | 2024-11-17 10:16 | XMS_ITS | Encounter Summary ---
Author Organization [employer] Address 75 [facility] 7t [place] [address] Care Team Providers Care Scalp Treatment Specialist Name Role Phone Name, Lucien REAL Primary Care Provider [phone] Reason for Visit * Reason Comments Med Refill Encounter Details Date Type Department Care Team ([facility] st Contact Info) Description 03/22/2023 Refill [facility] [address] [place], [place] [phone] Name, MD Lucien [address] [place] [address] High cholesterol; Asthma, unspecified asthma severity, unspecified [...] as of this encounter Plan of Treatment Upcoming Encounters Date Type Department Care Team (Late st Contact Info) Description 12/27/2024 10:00 AM EDT Office Visit [facility] [address] [place] [phone] NameLucien MD [address] [place] [phone] documented as of this encounter Visit Diagnoses Diagnosis High cholesterol Pure hypercholesterolemia Asthma, unspecified asthma severity, unspecified whether complicated, unspecified whether persistent Heartburn documented in this encounter Additional Health Concerns Assessment Noted Time PHQ-9 Depression Total Score: 4 08/28/19 23 3:18 PM EDT documented as of this encounter Care Teams Scalp Treatment Specialist Relationship Specialty Start Date End Date NameLucien MD [address] [place] [phone] PCP - General Family Medicine 08/07/15 documented as of this encounter
[2024-11-17 10:41] LABS: Basophils Absolute Auto 0.1 X10*3/uL (0.0-0.2); Basophils Percent Auto 1.5 % (0-2); Hemoglobin 13.4 g/dl (14.0-18.0); Imm Gran Abs Auto 0.02 X10*3/uL (0.00-0.03); Imm Gran Pct Auto 0.4 % (0.0-0.4); Lymphocytes Percent Auto 37.1 % (20-40); Mean Corpuscular HGB Conc 33.5 g/dl (31.0-36.0); Mean Corpuscular Hemoglobin 30.7 pg (27.0-33.0); Mean Corpuscular Volume 91.5 fL (80.0-98.0); Mean Platelet Volume 11.4 fL (9.4-12.4); Monocytes Absolute Auto 0.4 X10*3/uL (0.1-1.2); Monocytes Percent Auto 7.8 % (2-11); Neutrophils Absolute Auto 2.9 x10*3/uL (2.0-8.3); Neutrophils Percent Auto 53.2 % (45-73); Platelet Count 193 X10*3/uL (160-400); Red Blood Count 4.37 X10*6/uL (4.60-5.80); Red Cell Distribution Width 13.4 % (11.0-16.0); White Blood Count 5.4 X10*3/uL (4.8-10.8)
== END 2024-11-17 09:46 | disposition home or self-care (01) ==
LOC: HO.LABR 09:45
PROVIDERS: Visit Provider Psychiatry & Neurology Psychiatry
DX: Z79.899 Other long term (current) drug therapy (principal)
CPT/HCPCS: 36415; 85025

== ENCOUNTER 2024-12-27 11:10 | Outpatient (REF) | payer MEDICAID, SELFPAY ==
[2024-12-27 11:25] LABS: MANUAL DIFF FLAG NO
[2024-12-27 11:44] LABS: Hematocrit 38.4 % (42.0-52.0); Hemoglobin 12.9 g/dl (14.0-18.0); Imm Gran Abs Auto 0.01 X10*3/uL (0.00-0.03); Imm Gran Pct Auto 0.2 % (0.0-0.4); Lymphocytes Absolute Auto 2.1 X10*3/uL (1.2-4.9); Mean Corpuscular HGB Conc 33.6 g/dl (31.0-36.0); Mean Corpuscular Hemoglobin 30.8 pg (27.0-33.0); Mean Corpuscular Volume 91.6 fL (80.0-98.0); NRBC Abs Auto 0.000 X10*3/uL (0.0-0.012); NRBC Pct Auto 0.0 /100WBC (0.0-0.2); Platelet Count 143 X10*3/uL (160-400); Red Blood Count 4.19 X10*6/uL (4.60-5.80); White Blood Count 4.3 X10*3/uL (4.8-10.8)
--- OUTSIDE RECORDS SUMMARY | 2024-12-27 11:59 | XMS_ITS | Encounter Summary ---
Author Organization [employer] Address [address] [facility] 7t [place] [address] Care Team Providers Care Executive Team Leader Name Role Phone Name, Lucien REAL Primary Care Provider [phone] Reason for Visit * Reason Comments Med Refill Encounter Details Date Type Department Care Team ([facility] st Contact Info) Description 03/22/2023 Refill [facility] [address] [place], [place] [phone] Name, MD Lucien [address] [place] [address] High cholesterol; Asthma, unspecified asthma severity, unspecified [...] Care Team (Late st Contact Info) Description 03/22/2025 11:15 AM EDT Office Visit [facility] [address] [place] [phone] NameLucien MD [address] [place] [phone] documented as of this encounter Visit Diagnoses Diagnosis High cholesterol Pure hypercholesterolemia Asthma, unspecified asthma severity, unspecified whether complicated, unspecified whether persistent Heartburn documented in this encounter Additional Health Concerns Assessment Noted Time PHQ-9 Depression Total Score: 4 08/28/19 23 3:18 PM EDT documented as of this encounter Care Teams Executive Team Leader Relationship Specialty Start Date End Date NameLucien MD [address] [place] [phone] PCP - General Family Medicine 08/07/15 documented as of this encounter
--- OUTSIDE RECORDS SUMMARY | 2024-12-27 11:59 | XMS_ITS | Clinical Summary ---
Author Organization 175 [facility] Address [address] [place] [address] Phone Care Team Providers Care First Beater Name Role Phone Unavailable Primary Care Provider Unavailabl e Allergies No known active allergies Medications ammonium lactate (LAC-HYDRIN) 12 % lotion Apply to soles of feet daily. At night wear socks to bed 06/15/2023 Active Encounters Date Type Department Care Team Description 12/04/2024 10:45 AM EDT Office Visit Orthopedic Surgery [facility] [address] [phone] Giacomo Salter DPM Controlled type [...] Upcoming Encounters Date Type Department Care Team ([facility] st Contact Info) Description 01/15/2025 10:45 AM EDT Office Visit Orthopedic Surgery [facility] [address] [place] [phone] Giacomo Salter, DPM 175 [facility] [address] [place] [address] Health Maintenance Due Date Last Done Comments Diabetes: Annual Foot Exam 1977 Diabetes: Annual Retina Eye Exam 1977 Hepatitis B Vaccines (1 of 3 - 19+ 3-dose series) 1986 Zoster Vaccines (1 of 2) 2017 Colorectal Cancer Screening: Colonoscopy 12/21/2023 Social Influencers of Health Screening 12/21/2023 Depression Screening 05/24/2024 Diabetes: Annual Urine Albumin-Creatinine Ratio (uACR) 06/06/2024 Diabetes: Annual GFR (Glomerular Filtration Rate) 08/18/2024 08/19/2023 Influenza Vaccine (#1) 2025 , 04/29/2023, 02/17/2021, Additional history exists Diabetes: Blood Sugar Control Test (HGBA1C) 01/27/2025 07/27/2024, 03/14/2024, 08/03/2023 Cholesterol Screening (Lipid Panel) 03/14/2026 03/14/2021 DTaP,Tdap,and Td Vaccines (3 - Td or Tdap) 12/12/2031 12/11/2021, 06/23/2016 Pneumococcal Vaccine: 50+ Years Completed 04/29/2023, 07/05/2017 HIV Screening Completed 08/11/2023, 08/11/2023 Hepatitis C Screening Completed 08/11/2023 COVID-19 Vaccine Completed 03/14/2024, , 11/04/2020 HIB Vaccines Aged Out No longer eligi [...] * Annual BMP Blood Test (08/19/2023) Pathologist [facility] Annual BMP Blood Test Abstracted Result [facility] Provider HEALTH MAINTENANCE Final Result * HIV Screening (08/11/2023) [facility] HIV Screening Abstracted Result [facility] Provider HEALTH MAINTENANCE Final Result * Hepatitis C Screening (08/11/2023) [facility] Hepatitis C Screening Abstracted [facility] Provider HEALTH MAINTENANCE Final Result * Hemoglobin A1c (08/03/2023) [facility] Hemoglobin A1C 0.0 % Comment:No interpretation Blood Venous blood specimen / Unknown Result [facility] Provider LAB BLOOD ORDERABLES Carrie l Result * Lipid panel (03/14/2021) [facility] LDL/HDL Ratio 0 Comment:No interpretation Triglycerides 0 mg/dL Comment:No interpretation Cholesterol 0 mg/dL Comment:No interpretation HDL 0 mg/dL Comment:No interpretation LDL Cholesterol 0 mg/dL Comment:No interpretation Blood Venous blood specimen / Unknown us Historical Provider LAB BLOOD ORDERABLES Carrie l Result from Last 3 Months or Most Recently Relevant to Health Maintenance Insurance MEDICAID - [place]
[2024-12-27 12:39] LABS: Prostate Specific Antigen 0.50 ng/mL (<0.05-4.0)
== END 2024-12-27 11:11 | disposition home or self-care (01) ==
LOC: HO.LAB 11:10
PROVIDERS: Absent Provider Psychiatry & Neurology Psychiatry; PCP Internal Medicine Geriatric Medicine; Visit Provider Internal Medicine Geriatric Medicine
DX: Z12.5 Encounter for screening for malignant neoplasm of prostate (principal); Z79.899 Other long term (current) drug therapy
CPT/HCPCS: 36415; 84153; 85025

== ENCOUNTER 2025-02-15 10:29 | Outpatient (REF) | payer MEDICAID, SELFPAY ==
[2025-02-15 10:46] LABS: MANUAL DIFF FLAG NO
[2025-02-15 11:21] LABS: Hematocrit 39.4 % (42.0-52.0); Hemoglobin 12.8 g/dl (14.0-18.0); Imm Gran Abs Auto 0.01 X10*3/uL (0.00-0.03); Imm Gran Pct Auto 0.2 % (0.0-0.4); Lymphocytes Absolute Auto 2.3 X10*3/uL (1.2-4.9); Mean Corpuscular HGB Conc 32.5 g/dl (31.0-36.0); Mean Corpuscular Hemoglobin 30.6 pg (27.0-33.0); Mean Corpuscular Volume 94.3 fL (80.0-98.0); NRBC Abs Auto 0.000 X10*3/uL (0.0-0.012); NRBC Pct Auto 0.0 /100WBC (0.0-0.2); Platelet Count 169 X10*3/uL (160-400); Red Blood Count 4.18 X10*6/uL (4.60-5.80); White Blood Count 4.8 X10*3/uL (4.8-10.8)
== END 2025-02-15 10:30 | disposition home or self-care (01) ==
LOC: HO.LABR 10:29
PROVIDERS: PCP Internal Medicine Geriatric Medicine; Visit Provider Psychiatry & Neurology Psychiatry
DX: Z79.899 Other long term (current) drug therapy (principal)
CPT/HCPCS: 36415; 85025

== ENCOUNTER 2025-03-14 10:14 | Outpatient (REF) | payer MEDICAID, SELFPAY ==
[2025-03-14 10:36] LABS: MANUAL DIFF FLAG NO
[2025-03-14 11:13] LABS: Hematocrit 40.6 % (42.0-52.0); Hemoglobin 13.1 g/dl (14.0-18.0); Imm Gran Abs Auto 0.01 X10*3/uL (0.00-0.03); Imm Gran Pct Auto 0.2 % (0.0-0.4); Lymphocytes Absolute Auto 1.8 X10*3/uL (1.2-4.9); Mean Corpuscular HGB Conc 32.3 g/dl (31.0-36.0); Mean Corpuscular Hemoglobin 30.8 pg (27.0-33.0); Mean Corpuscular Volume 95.3 fL (80.0-98.0); NRBC Abs Auto 0.000 X10*3/uL (0.0-0.012); NRBC Pct Auto 0.0 /100WBC (0.0-0.2); Platelet Count 151 X10*3/uL (160-400); Red Blood Count 4.26 X10*6/uL (4.60-5.80); White Blood Count 6.0 X10*3/uL (4.8-10.8)
--- OUTSIDE RECORDS SUMMARY | 2025-03-14 12:47 | XMS_ITS | Clinical Summary ---
Author Organization 175 [facility] Address [address] [place] [address] Phone Care Team Providers Care Global Commodity Manager Name Role Phone Unavailable Primary Care Provider Unavailabl e Allergies No known active allergies Medications ammonium lactate (LAC-HYDRIN) 12 % lotion Apply to soles of feet daily. At night wear socks to bed 06/15/2023 Active Encounters Date Type Department Care Team Description 02/21/2025 10:30 AM EDT Office Visit Orthopedic Surgery [facility] [address] [phone] Giacomo Salter DPM Controlled type [...] Upcoming Encounters Date Type Department Care Team ([facility] st Contact Info) Description 04/25/2025 10:30 AM EST Office Visit Orthopedic Surgery [facility] [address] [place] [phone] Giacomo Salter, DPVictoria 175 [facility] [address] [place] [address] Health Maintenance Due Date Last Done Comments Colorectal Cancer Screening: Colonoscopy 1967 Diabetes: Annual Foot Exam 1977 Diabetes: Annual Retina Eye Exam 1977 Hepatitis B Vaccines (1 of 3 - 19+ 3-dose series) 1986 RSV Immunization Adult Patients (1 - Risk 50-74 years 1-dose series) 2017 Zoster Vaccines (1 of 2) 2017 Social Influencers of Health Screening 12/21/2023 Depression Screening 05/24/2024 Diabetes: Annual Urine Albumin-Creatinine Ratio (uACR) 06/06/2024 Diabetes: Annual GFR (Glomerular Filtration Rate) 08/18/2024 08/19/2023 Influenza Vaccine (#1) 2025 , 04/29/2023, 02/17/2021, Additional history exists Diabetes: Blood Sugar Control Test (HGBA1C) 06/29/2025 12/27/2024, 07/27/2024, 03/14/2024, Additional history exists Cholesterol Screening (Lipid Panel) 03/14/2026 03/14/2021 DTaP,Tdap,and [...] * Annual BMP Blood Test (08/19/2023) Pathologist [facility] Annual BMP Blood Test Abstracted [facility] Provider HEALTH MAINTENANCE Final Result * HIV Screening (08/11/2023) [facility] HIV Screening Abstracted Result [facility] Provider HEALTH MAINTENANCE Final Result * Hepatitis C Screening (08/11/2023) Pathologist [facility] Hepatitis C Screening Abstracted [facility] Provider HEALTH MAINTENANCE Final Result * Hemoglobin A1c (08/03/2023) [facility] Hemoglobin A1C 0.0 % Comment:No interpretation Blood Venous blood specimen / Unknown [facility] Provider LAB BLOOD ORDERABLES Carrie l Result * Lipid panel (03/14/2021) [facility] LDL/HDL Ratio 0 Comment:No interpretation Triglycerides [...]
== END 2025-03-14 10:15 | disposition home or self-care (01) ==
LOC: HO.LABR 10:14
PROVIDERS: PCP Internal Medicine Geriatric Medicine; Visit Provider Psychiatry & Neurology Psychiatry
DX: Z79.899 Other long term (current) drug therapy (principal)
CPT/HCPCS: 36415; 85025

== ENCOUNTER 2025-04-17 11:18 | Outpatient (REF) | payer MEDICAID, SELFPAY ==
[2025-04-17 11:25] LABS: MANUAL DIFF FLAG NO
[2025-04-17 11:41] LABS: Hematocrit 40.1 % (42.0-52.0); Hemoglobin 13.1 g/dl (14.0-18.0); Imm Gran Abs Auto 0.02 X10*3/uL (0.00-0.03); Imm Gran Pct Auto 0.4 % (0.0-0.4); Lymphocytes Absolute Auto 2.2 X10*3/uL (1.2-4.9); Mean Corpuscular HGB Conc 32.7 g/dl (31.0-36.0); Mean Corpuscular Hemoglobin 31.1 pg (27.0-33.0); Mean Corpuscular Volume 95.2 fL (80.0-98.0); NRBC Abs Auto 0.000 X10*3/uL (0.0-0.012); NRBC Pct Auto 0.0 /100WBC (0.0-0.2); Platelet Count 146 X10*3/uL (160-400); Red Blood Count 4.21 X10*6/uL (4.60-5.80); White Blood Count 5.2 X10*3/uL (4.8-10.8)
--- OUTSIDE RECORDS SUMMARY | 2025-04-17 15:00 | XMS_ITS | Encounter Summary ---
Author Organization [employer] Address [address] [place] [address] Care Team Providers Care Shredder Tender Peat Name Role Phone Name, Lucien REAL Primary Care Provider [phone] Reason for Visit * Reason Onset Date Comments Med Refill 06/11/2023 Encounter Details Date Type Department Care Team ([facility] st Contact Info) Description 06/11/2023 Telephone [facility] MEDICINE [address] [place], [place] [phone] Name, MD Lucien [address] [place], [place] [id number] Med Refill Social History Tobacco Use Types [...] 10:26 AM EST Medication was sent to [facility] #[id number] today. * Telephone Encounter - Marilyn Cabral - 06/11/2023 10:22 AM EST TC from pt requesting medication refill. Medications needing refill : empagliflozin (Jardiance) 10 MG ( To be sent to: [facility]/pharmacy #[id number] - [address] documented in this encounter Plan of Treatment Not on file documented as of this encounter Visit Diagnoses Not on filedocumented in this encounter Additional Health Concerns Assessment Noted Time PHQ-9 Depression Total Score: 4 08/28/19 23 3:18 PM EDT documented as of this encounter Care Teams Shredder Tender Peat Relationship Specialty Start Date End Date Name, MD Lucien [address] [place] [address] PCP - General Family Medicine 08/07/15 documented as of this encounter
--- OUTSIDE RECORDS SUMMARY | 2025-04-17 15:00 | XMS_ITS | Encounter Summary ---
Author Organization [employer] Address [address] [place] [address] Care Team Providers Care Location Man Name Role Phone Name, Lucien REAL Primary Care Provider [phone] Encounter Details Date Type Department Care Team (Late st Contact Info) Description 07/11/2024 Telephone [facility] MEDICINE [address] [place], [place] [phone] Name, MD Lucien [address] [place] [address] Social History Tobacco Use Types Packs/Day Years [...] documented as of this encounter Care Teams Location Man Relationship Specialty Start Date End Date Name, MD Lucien [address] [place] [address] PCP - General Family Medicine 08/07/15 documented as of this encounter
--- OUTSIDE RECORDS SUMMARY | 2025-04-17 15:00 | XMS_ITS | Clinical Summary ---
Author Organization 175 [facility] Address [address] [place] [address] Phone Care Team Providers Care Cuff Turner Name Role Phone Unavailable Primary Care Provider Unavailabl e Allergies No known active allergies Medications ammonium lactate (LAC-HYDRIN) 12 % lotion Apply to soles of feet daily. At night wear socks to bed 06/15/2023 Active Encounters Date Type Department Care Team Description 02/21/2025 10:30 AM EDT Office Visit Orthopedic Surgery [facility] [address] [phone] Giacomo Salter DPM Controlled type [...] Upcoming Encounters Date Type Department Care Team ([facility] st Contact Info) Description 04/25/2025 10:30 AM EST Office Visit Orthopedic Surgery [facility] [address] [place] [phone] Giacomo Salter, DPVictoria 175 [facility] [address] [place] [address] Health Maintenance Due Date Last Done Comments [...] Annual GFR (Glomerular Filtration Rate) 08/18/2024 08/19/2023 COVID-19 Vaccine ( season) 2025 03/14/2024, 05/19/2021, 11/04/2020 Influenza Vaccine (#1) 2025 , 04/29/2023, 02/17/2021, Additional history exists Diabetes: Blood Sugar Control Test (HGBA1C) 06/29/2025 12/27/2024, 07/27/2024, 03/14/2024, Additional history exists Cholesterol Screening (Lipid Panel) 03/14/2026 03/14/2021 DTaP,Tdap,and Td Vaccines (3 - Td or Tdap) 12/12/2031 12/11/2021, 06/23/2016 Pneumococcal Vaccine: 50+ Years Completed 04/29/2023, 07/05/2017 HIV Screening Completed 08/11/2023, 08/11/2023 Hepatitis C Screening Completed 08/11/2023 HIB Vaccines Aged Out No longer eligi [...] BMP Blood Test (08/19/2023) Pathologist [facility] Annual BMP Blood Test Abstracted [facility] Provider HEALTH MAINTENANCE Final Result * HIV Screening (08/11/2023) [facility] HIV Screening Abstracted [facility] Provider HEALTH MAINTENANCE Final Result * Hepatitis C Screening (08/11/2023) [facility] Hepatitis C Screening Abstracted [facility] Provider HEALTH MAINTENANCE Final Result * Hemoglobin A1c (08/03/2023) [facility] Hemoglobin A1C 0.0 % Comment:No interpretation Blood Venous blood specimen / Unknown Result [facility] Provider LAB BLOOD ORDERABLES Carrie l Result * Lipid panel (03/14/2021) [facility] LDL/HDL Ratio 0 Comment:No interpretation Triglycerides 0 mg/dL Comment:No interpretation Cholesterol 0 mg/dL Comment:No interpretation HDL 0 mg/dL Comment:No interpretation LDL Cholesterol 0 mg/dL Comment:No interpretation Blood Venous blood specimen / Unknown Historical Provider LAB BLOOD ORDERABLES Carrie l Result from Last 3 Months or Most Recently Relevant to Health Maintenance Insurance [place] - [place]
--- OUTSIDE RECORDS SUMMARY | 2025-04-17 15:00 | XMS_ITS | Clinical Summary ---
Author Organization [employer] Address [address] [facility] 7t [place] [address] Care Team Providers Care Refinery Operator Alkylation Name Role Phone Name, Lucien REAL Primary Care Provider [phone] Allergies No known active allergies Medications carbamide peroxide (Debrox) 6.5 % otic solution Administer 5 drops into affected ear(s) 2 times daily. For 1 week 12/26/19 21 Active clonazePAM (KlonoPIN) 1 MG tablet Take 1 mg by mouth 2 times daily. 07/30/19 23 Active cloZAPine (Clozaril) 100 MG tablet TAKE TWO (2) TABLETS BY MOUTH EVERY MORNING AND FIVE (5) TABLETS AT BEDTIME 08/12/19 23 Active docusate sodium (Colace) 100 MG capsule Take 1 capsule by mouth if needed each day. 09/01/19 23 Active nicotine polacrilex (Commit) 4 MG lozenge Take 1 tablet by mouth every 2 (two) hours. 12/26/19 21 Active nicotine (Nicoderm, Step 3) 7 MG/24HR patchIndications :Cigarette nicotine dependence without complication PLACE 1 PATCH ON THE SKIN 1 TIME EACH DAY AT THE SAME TIME. 28 patch 03/23/20 23 Active albuterol 108 (90 Base) MCG/ACT inhalerIndicatio ns:Moderate persistent asthma without complication Inhale 2 puffs every 6 (six) hours if needed for wheezing. 18 g 11 01/26/20 24 Active Acetaminophen Extra Strength 500 MG tabletIndication s:Back strain, initial encounter TAKE 1 TABLET BY MOUTH EVERY 6 HOURS NEEDED FOR PAIN 30 tablet 2 02/07/20 24 Active benztropine (Cogentin) 0.5 MG tablet Take 0.5 mg by mouth at bedtime. 01/12/20 25 Active Eliquis 5 MG tablet TAKE 1 TABLET BY MOUTH TWICE A DAY 60 tablet 3 03/06/20 25 Active metFORMIN (Glucophage) 500 MG tablet TAKE 1 TABLET (500 MG) BY MOUTH WITH BREAKFAST AND WITH EVENING MEAL 180 tablet 3 04/10/20 25 026 Active montelukast (Singulair) 10 MG tabletIndication s:Asthma, unspecified asthma severity, unspecified whether complicated, unspecified whether persistent TAKE 1 TABLET BY MOUTH EVERY DAY IN THE EVENING 90 tablet 1 04/10/20 25 Active omeprazole (PriLOSEC) [address] capsuleIndicatio ns:Heartburn TAKE 1 CAPSULE BY MOUTH EVERY DAY 90 capsule 1 04/10/20 25 Active atorvastatin (Lipitor) 20 MG tabletIndication s:High cholesterol TAKE 1 TABLET BY MOUTH EVERY DAY 90 tablet 1 04/10/20 25 Active metFORMIN (Glucophage) 500 MG tablet Take 1 tablet (500 mg) by mouth with breakfast and with evening meal. 180 tablet 3 03/14/20 24 025 Discontinued atorvastatin (Lipitor) 20 MG tabletIndication s:High cholesterol TAKE 1 TABLET BY MOUTH EVERY DAY 90 tablet 1 10/11/19 25 025 Discontinued omeprazole (PriLOSEC) [address] capsuleIndicatio ns:Heartburn TAKE 1 CAPSULE BY MOUTH EVERY DAY 90 capsule 1 10/11/19 25 025 Discontinued montelukast (Singulair) 10 MG tabletIndication s:Asthma, unspecified asthma severity, unspecified whether complicated, unspecified whether persistent TAKE 1 TABLET BY MOUTH EVERY DAY IN THE EVENING 90 tablet 1 10/11/19 25 025 Discontinued Active Problems Problem Noted Date Diagnosed Date Constipation 01/16/2025 Anticoagulated 07/27/2024 Atherosclerosis of abdominal aorta 07/13/2023 [...] the abdomen/pelvis/chest at time of diagnosis in [facility] on August 2022. Colonoscopy still pending as of 03/14/2024. He follows at [facility] hematology and is on Eliquis Chest pain 04/07/2017 Diabetes mellitus 11/02/2013 Assessment & Plan (07/13/2023 7:29 PM EST): Denies lows, glucometer reveals random sugars in 150s range, egg caser denies lows Continue current regimen Schizophrenia 04/11/2013 Assessment & Plan (07/13/2023 7:27 PM EST): Endorses auditory hallucinations but feels safe, in close care with psychiatry and [facility] rn program Resolved Problems Problem Noted [...] toenail or fix his callus here in [facility] and advise that he f up w analyst food and beverage. Per caregiver pt has apt w analyst food and beverage in 2 wk, Dr. Rolando Jimenez on 02/11/2023 in [place]. -Despite these explanations, pt got very upset and left the examining room. -I advised pt to examine his feet daily and use creams to keep them hydrated, and to return if there is a break on skin or signs of infection. Impacted cerumen 08/27/2022 03/14/2024 Smoker 11/02/2013 09/28/2022 Neck pain 07/11/2013 03/14/2024 Encounters Date Type Department Care Team Description 04/09/2025 Refill [facility] [address] [place] [address] Lucien Morales MD Asthma, unspecified asthma severity, unspecified whether complicated, unspecified whether persistent; Heartburn; High cholesterol 03/22/2025 11:15 AM EDT Office Visit [facility] [address] [place] [address] Lucien Morales MD Type 2 diabetes mellitus without complication, without long-term current use of insulin (HCC) (Primary Dx); Schizophrenia, unspecified type (HCC); History of DVT of lower extremity; Encounter for immunization; Encounter for vaccination 03/22/2025 Travel 03/21/2025 Telephone [facility] [address] [place] [address] Lucien Morales MD Chart Prep 03/05/2025 Refill [facility] [address] [place] [address] Lucien Morales MD 02/15/2025 Orders Only GENERIC EXTERNAL DATA DEPARTMENT Provider, Generic External Data 01/16/2025 10:15 AM EDT Office Visit [address] [address] [place], [place] Constipation, unspecified constipation type (Primary Dx) 01/16/2025 Travel 01/15/[address] [address] Lucien Morales MD Nurse Triage from Last 3 Months Immunizations Immunization Administration Dates Next Due Influenza Injectable Quadriv alant Preservative Free IIV4 MDCK 03/21/2018 Influenza injectable quadriv alent IIV4 with preservative 04/07/2017 Influenza injectable quadriv alent preservative free 04/29/2023,02/17/2021,03/14/2019,06/23 Influenza, Split (incl. lewis fied surface antigen) 04/06/2013 Influenza, seasonal, injecta ble, preservative free 03/22/2025,03/14/2024 Pfizer Covid-19 Vaccine 12+ 03/22/2025, Pneumococcal Conjugate PCV 20 04/29/2023 Pneumococcal Polysaccharide [...] Answer Date Recorded Patient Health Questionnaire-9 Score 3 12/27/2024 Patient Health Questionnaire-9 Score 3 12/27/2024 Last PHQ-9: Questionnaire Data Not on file 0 12/27/2024 Housing Stability Answer Date Recorded What is your housing situation today? I have marcelo avila 12/27/[address] you li ve. Do you have problems with any of the following? None of the above 12/27/2024 Food Insecurity Answer Date Recorded Within the past 12 months, y ou worried that your food would run out before you got money to buy more: Sometimes True 2024 Within the past 12 months,th e food you bought just didn't last and you didn't have enough money to get more: Sometimes True 12/27/2024 Transportation Answer Date Recorded In the past 12 months, has l ack of transportation kept you from medical appts, meetings, work or from getting things needed for daily living? No 12/27/2024 Utilities Answer Date Recorded In the past 12 months, has t he electric, gas, oil or water company threatened to shut off services in your home? No 12/27/2024 Depression Answer Date Recorded Patient Health Questionnaire-2 Score 0 12/27/2024 Internet Access Answer Date Recorded Internet Access Q1 Yes 12/27/2024 Internet Access Q2 Not on file 12/27/2024 Sex and Gender Information Value Date Recorded Sex Assigned at Male 03/23/2022 10:15 AM EDT Legal Sex Male 10:15 AM EDT Gender Identity Male 03/23/2022 10:15 AM EDT Sexual Orientation Choose not to disclose 2021 10:15 AM EDT Last Filed Vital Signs Vital Sign Reading Time Taken Comments Blood Pressure 106/74 03/22/2025 11:11 AM EDT Pulse 106 03/22/2025 11:11 AM EDT Temperature 37 C (98.6 F) 03/22/2025 11:11 AM EDT Respiratory Rate 18 03/22/2025 11:11 AM EDT Oxygen Saturation 97% 03/22/2025 11:11 AM EDT Inhaled Oxygen Concentration - - Weight 67.9 kg (149 lb 9.6 oz) 03/22/2025 11:11 AM EDT Height 177.8 cm (5' 10 ) 03/22/2025 11:11 AM EDT Body Mass Index 21.47 03/22/2025 11:11 AM EDT Plan of Treatment Health Maintenance Due Date Last Done Comments CT Colonography 1967 Colonoscopy 1967 Colorectal Cancer Screening 1967 FIT DNA/Cologuard 1967 FIT 1967 FOBT 1967 Sigmoidoscopy 1967 Diabetes: Urine Protein Screening 1986 Hepatitis B Vaccines (1 of 3 - 19+ 3-dose series) 1986 RSV Patients and Patients Aged 60 years or older (1 - Risk 50-74 years 1-dose series) 2017 Zoster Vaccines (1 of 2) 2017 Lipid Panel 03/14/2022 03/14/2021 Eye Exam 06/14/2025 06/14/2023 Diabetes: Hemoglobin A1C 06/29/2025 025, 07/27/2024, 03/14/2024, Additional history exists Depression Screening 12/27/2025 12/27/2024, 12/28/19 Diabetes: Foot Exam 12/27/2025 12/27/2024, 12/27/2024, 12/27/2024, Additional history exists Disability Screening 12/27/2025 12/27/2024 SDOH Screening 12/27/2025 12/27/2024 Alcohol/Substance Use Screening 03/22/2026 03/22/2025 Tobacco Screening 03/22/2026 03/22/2025 DTaP/Tdap/Td Vaccines (3 - Td or Tdap) 12/12/2031 12/11/2021, 06/23/2016 Pneumococcal Vaccine: 50+ Years Completed 04/29/2023, 07/05/2017 HIV Screening Completed 08/11/2023, 08/03/2023 Hepatitis C Screening Completed 08/11/2023, 024 COVID-19 Vaccine Completed 03/22/2025, , 05/19/2021, Additional history exists Influenza Vaccine Completed 03/22/2025, , 04/29/2023, Additional history exists HIB Vaccines Aged Out [...] Diagnosis Comments CBC WITH AUTO DIFFERENTIAL Routine 02/15/2025 10:46 AM EDT POCT GLYCATED HEMOGLOBIN, TOTAL Routine 12/27/2024 10:26 AM EDT Type 2 diabetes mellitus without complication, without long-term current use of insulin ([facility]) HEPATITIS C ANTIBODY Routine 08/11/2023 10:35 AM EDT Unintentional weight loss HIV 1/2 ANTIGEN/ANTIBODY, FOURTH GENERATION W/RFL Routine 08/11/2023 10:35 AM EDT Unintentional weight loss ZZZ HISTORICAL LIPID PANEL Routine 03/14/2021 9:49 AM EDT from Last 3 Months or Most Recently Relevant to Health Maintenance Results * (ABNORMAL) CBC auto differential (02/15/2025 10:46 AM EDT) White Blood Count 4.8 4.8 - 10.8 X10*3/uL [facility] Red Blood Count 4.18(L) 4.60 - 5.80 X10*6/uL [facility] Hemoglobin 12.8(L) 14.0 - 18.0 g/dl [facility] Hematocrit 39.4(L) 42.0 - 52.0 % [facility] Mean Corpuscular Volume 94.3 80.0 - 98.0 fL [facility] Mean Corpuscular Hemoglobin 30.6 27.0 - 33.0 pg [facility] Mean Corpuscular HGB Conc 32.5 31.0 - 36.0 g/dl [facility] Red Cell Distribution Width 14.2 11.0 - 16.0 % [facility] Platelet Count 169 160 - 400 X10*3/uL [facility] Mean Platelet Volume 11.4 9.4 - 12.4 fL [facility] Neutrophils Percent Auto 40.6(L) 45 - 73 % [facility] Imm Gran Pct Auto 0.2 0.0 - 0.4 % [facility] Lymphocytes Percent Auto 48.7(H) 20 - 40 % [facility] Monocytes Percent Auto 8.8 2 - 11 % [facility] Eosinophils Percent Auto 0.0 0 - 4 % [facility] Basophils Percent Auto 1.7 0 - 2 % [facility] NRBC Pct Auto 0.0 0.0 - 0.2 /100WBC [facility] Neutrophils Absolute Auto 1.9(L) 2.0 - 8.3 x10*3/uL [facility] Imm Gran Abs Auto 0.01 0.00 - 0.03 X10*3/uL [facility] Lymphocytes Absolute Auto 2.3 1.2 - 4.9 X10*3/uL [facility] Monocytes Absolute Auto 0.4 0.1 - 1.2 X10*3/uL [facility] Eosinophils Absolute Auto 0.0 0.0 - 0.4 X10*3/uL [facility] Basophils Absolute Auto 0.1 0.0 - 0.2 X10*3/uL [facility] NRBC Abs Auto 0.000 0.0 - 0.012 X10*3/uL [facility] 02/15/2025 10:4 6 AM EDT 02/15/2025 10:46 AM EDT us Generic External Data Provider LAB BLOOD ORDERAB LES Final Result Performing Organization Address [facility]/ZIP Co de Phone Number [facility] [address] [place] [phone] * (ABNORMAL) POCT HGB A1C (12/27/2024 10:26 AM EDT) [facility] Hemoglobin A1C 6.4(A) 4.0 - 5.7 % QC Media Lot # [id number] Lot# Expiration Date Blood 12/27/2024 10:2 6 AM EDT Lucien Morales MD POINT OF CARE TEST ENTER/EDIT OR DERABLES Final Result * Hepatitis C Ab (08/11/2023 10:35 AM EDT) [facility] Hepatitis C Antibody Nonreactive Nonreactive [facility] Comment:Antibodies to HCV no t detected; does not exclude early acuteHCV infection. Blood Venous blood specimen / Unknown 08/11/2023 10:35 AM EDT 08/11/2023 10:36 AM EDT Rosi Navarro NP LAB BLOOD ORDERABLES Final Resul t Performing Organization Address [facility]/ZIP Co de Phone Number [facility] [address] [place] [phone] * HIV-1/2 Antigen and Antibodies, Fourth Generation, with Reflexes (08/11/2023 10:35 AM EDT) HIV AB/AG Nonreactive Nonreactive [facility] Comment:HIV-1 p24 Ag and/or HIV-1/HIV-2 Ab not detected.A test result that is nonreactive does not exclude thepossibility of exposure to or infection with HIV-1 and/orHIV-2. Nonreactive results in this assay for individualswith prior exposure to HIV-1 and/or HIV-2 may be due toantigen and antibody levels that are below the limit ofdetection of this assay.The RealD HIV Ag/Ab Combo assay result andsupplemental assay results should be interpreted inconjunction with the patient's clinical presentation,history and other laboratory results. If the results areinconsistent with clinical evidence, additional testing issuggested to confirm the result. Blood Venous blood specimen / Unknown 08/11/2023 10:35 AM EDT 08/11/2023 10:36 AM EDT us Rosi Navarro NP LAB BLOOD ORDERABLES Final Resul t [facility] [address] [place] [phone] * (ABNORMAL) LIPID PANEL (03/14/2021 9:49 AM EDT) Cholesterol 103 mg/dL [facility] Comment: Desirable Cholesterol: less than 200 mg/dL Borderline High Cholesterol: 200-239 mg/dL High Cholesterol: greater than 239 mg/dL HDL Cholesterol 32 mg/dL [facility] Comment: Desirable HDL: greater than 40 mg/dL Note: This HDL assay may give artificially low results in patients with liver disease. LDL Cholesterol Calculated 37 mg/dl [facility] Comment: Desirable LDL: less than 100 mg/dL Near Optimal/Above Optimal LDL: 110-129 mg/dL Borderline High LDL: 130-159 mg/dL High LDL: 160-189 mg/dL Very High LDL: greater than or equal to 190 mg/dL Triglycerides 171 mg/dL [facility] Comment: Desirable Triglyceride: less than 150 mg/dL Borderline High Triglyceride 150-199 mg/dL High Triglyceride: 200-499 mg/dL Very High Triglyceride: greater than or equal to 5OO mg/dL Alanine Aminotransferase 25 0 - [...] Rate >60 [facility] Comment: NOTE: For -[place] individuals, multiply the result by 1.210. Chronic Kidney Disease: Estimated GFR < 60 mL/min/1.73m2 Severe Kidney Disease: Estimated GFR < 15 mL/min/1.73m2 Glucose Random 161(H) 60 - 115 mg/dL [facility] Potassium 4.2 3.3 - 5.1 mmol/L [facility] Sodium 140 135 - 145 mmol/L [facility] Total Protein 6.3(L) 6.5 - 8.0 g/dL [facility] 03/14/2021 9:49 AM EDT us Lucien Name HISTORICAL/NON ORDERABLE LABS Fi nal Result [facility] [address] from Last 3 Months or Most Recently Relevant to Health Maintenance [facility] Advance Directives Documents on File Type Date Recorded Patient Hydrologic Modeler Expl anation Power of Archives Specialist 09/09/2023 Power of A ttorney Care Teams Refinery Operator Alkylation Relationship Specialty Start Date End Date Name, MD Lucien [address] [place] [address] PCP - General Family Medicine 08/07/15
--- OUTSIDE RECORDS SUMMARY | 2025-04-17 15:00 | XMS_ITS | Encounter Summary ---
Author Organization [employer] Address [address] [facility] 7t [place] [address] Care Team Providers Care Production Mechanic Tin Cans Name Role Phone Name, Lucien REAL Primary Care Provider [phone] Reason for Visit * Reason Onset Date Comments triage 08/13/2022 Encounter Details Date Type Department Care Team ([facility] st Contact Info) Description 08/13/2022 Telephone [facility] [address] [place], [place] [phone] Name, MD Lucien [address] [place] [address] triage Social History Tobacco Use Types Packs/Day [...] unable to reach Pt, phone isn't working. gas systems worker Yanni is contacted, apt is made with CNONOR Malin 08/27 @ 330pm for request for referral [...] on filedocumented in this encounter Care Teams Production Mechanic Tin Cans Relationship Specialty Start Date End Date Name, MD Lucien [address] [place] [address] PCP - General Family Medicine 08/07/15 documented as of this encounter
--- OUTSIDE RECORDS SUMMARY | 2025-04-17 15:00 | XMS_ITS | Encounter Summary ---
Author Organization [employer] Address 75 [facility] 7t [place] [address] Care Team Providers Care Glue Maker Name Role Phone Name, Lucien REAL Primary Care Provider [phone] Reason for Visit * Reason Comments Med Refill Encounter Details Date Type Department Care Team ([facility] st Contact Info) Description 03/22/2023 Refill [facility] [address] [place], [place] [phone] Name, MD Lucien [address] [place] [address] High cholesterol; Asthma, unspecified asthma severity, unspecified [...] documented as of this encounter Care Teams Glue Maker Relationship Specialty Start Date End Date Name, MD Lucien [address] [place] [address] PCP - General Family Medicine 08/07/15 documented as of this encounter
--- OUTSIDE RECORDS SUMMARY | 2025-04-17 15:00 | XMS_ITS | Encounter Summary ---
Author Organization [employer] Address 75 [facility] 7t [place] [address] Care Team Providers Care Television Newscast Director Name Role Phone Name, Lucien REAL Primary Care Provider [phone] Reason for Visit * Reason Onset Date Comments ER Follow-up 03/15/2023 Encounter Details Date Type Department Care Team ([facility] Contact Info) Description 03/15/2023 Telephone [facility] [address] [place], [place] [phone] Name, MD Lucien [address] [place] [address] ER Follow-up Social History Tobacco Use Types [...] T/C x 1 am to pt. On [phone] for below message, No answer. LVM to call back on [phone]. * Telephone Encounter - Marilyn Cabral - 03/15/2023 1:59 PM EDT Tc from [facility] with [facility] Miya calling to report pt ED visit on 03/13/2023 at [facility]. Seen for ankle sprain. Ha advised will forward to team nurse for follow up. Please call Ha for appt [phone] documented in this encounter Plan of Treatment Not on file documented as of this encounter Visit Diagnoses Not on filedocumented in this encounter Additional Health Concerns Assessment Noted Time PHQ-9 Depression Total Score: 4 08/28/19 23 3:18 PM EDT documented as of this encounter Care Teams Television Newscast Director Relationship Specialty Start Date End Date Name, MD Lucien [address] [place] [address] PCP - General Family Medicine 08/07/15 documented as of this encounter
--- OUTSIDE RECORDS SUMMARY | 2025-04-17 15:00 | XMS_ITS | Encounter Summary ---
Author Organization [employer] Address [address] [facility] 7t [place] [address] Care Team Providers Care Half Section Ironer Name Role Phone Name, Lucien REAL Primary Care Provider [phone] Reason for Visit * Reason Onset Date Comments FYI 11/22/2023 Encounter Details Date Type Department Care Team ([facility] st Contact Info) Description 11/22/2023 Telephone [facility] [address] [place], [place] [phone] Name, MD Lucien [address] [place], [place] [phone] FYI Social History Tobacco Use Types Packs/Day [...] documented as of this encounter Care Teams Half Section Ironer Relationship Specialty Start Date End Date Name, MD Lucien [address] [place] [address] PCP - General Family Medicine 08/07/15 documented as of this encounter
== END 2025-04-17 11:19 | disposition home or self-care (01) ==
LOC: HO.LABR 11:18
PROVIDERS: PCP Internal Medicine Geriatric Medicine
DX: Z79.899 Other long term (current) drug therapy (principal)
CPT/HCPCS: 36415; 85025

== ENCOUNTER 2025-05-22 09:48 | Outpatient (REF) | payer MEDICAID, SELFPAY ==
[2025-05-22 10:17] LABS: MANUAL DIFF FLAG NO
[2025-05-22 10:54] LABS: Hematocrit 40.2 % (42.0-52.0); Hemoglobin 12.9 g/dl (14.0-18.0); Imm Gran Abs Auto 0.01 X10*3/uL (0.00-0.03); Imm Gran Pct Auto 0.2 % (0.0-0.4); Lymphocytes Absolute Auto 2.1 X10*3/uL (1.2-4.9); Mean Corpuscular HGB Conc 32.1 g/dl (31.0-36.0); Mean Corpuscular Hemoglobin 30.9 pg (27.0-33.0); Mean Corpuscular Volume 96.2 fL (80.0-98.0); NRBC Abs Auto 0.000 X10*3/uL (0.0-0.012); NRBC Pct Auto 0.0 /100WBC (0.0-0.2); Platelet Count 164 X10*3/uL (160-400); Red Blood Count 4.18 X10*6/uL (4.60-5.80); White Blood Count 4.3 X10*3/uL (4.8-10.8)
--- OUTSIDE RECORDS SUMMARY | 2025-05-22 12:43 | XMS_ITS | Encounter Summary ---
Author Organization [employer] Address 75 [facility] 7t [place] [address] Care Team Providers Care Basic Sciences Professor Name Role Phone Name, Lucien REAL Primary Care Provider [phone] Reason for Visit * Reason Onset Date Comments FYI 11/22/2023 Encounter Details Date Type Department Care Team ([facility] st Contact Info) Description 11/22/2023 Telephone [facility] [address] [place], [place] [phone] Name, MD Lucien [address] [place], [place] [phone] FYI Social History Tobacco Use Types Packs/Day [...] documented as of this encounter Care Teams Basic Sciences Professor Relationship Specialty Start Date End Date Name, MD Lucien [address] [place] [address] PCP - General Family Medicine 08/07/15 documented as of this encounter
--- OUTSIDE RECORDS SUMMARY | 2025-05-22 12:43 | XMS_ITS | Encounter Summary ---
Author Organization [employer] Address [address] [facility] [address] [place] [address] Care Team Providers Care Senior Grant Writer Name Role Phone Name, Lucien REAL Primary Care Provider Encounter Details Date Type Department Care Team (Late st Contact Info) Description 07/11/2024 Telephone [facility] [address] [place], [place] [phone] Name, MD Lucien [address] [place] [address] Social History Tobacco Use Types Packs/Day Years [...] documented as of this encounter Care Teams Senior Grant Writer Relationship Specialty Start Date End Date Name, MD Lucien [address] [place] [address] PCP - General Family Medicine 08/07/15 documented as of this encounter
--- OUTSIDE RECORDS SUMMARY | 2025-05-22 12:43 | XMS_ITS | Encounter Summary ---
Author Organization [employer] Address 75 [facility] [address]t [place] [address] Care Team Providers Care Assistant Produce Manager Name Role Phone Name, Lucien REAL Primary Care Provider [phone] Reason for Visit * Reason Onset Date Comments Med Refill 06/11/2023 Encounter Details Date Type Department Care Team ([facility] st Contact Info) Description 06/11/2023 Telephone [facility] [address] [place], [place] [phone] Name, MD Lucien [address] [place], [place] [phone] Med Refill Social History Tobacco Use Types [...] 10:26 AM EST Medication was sent to [facility] #[id number] today. * Telephone Encounter - Marilyn Cabral - 06/11/2023 10:22 AM EST TC from pt requesting medication refill. Medications needing refill : empagliflozin (Jardiance) 10 MG ( To be sent to: [facility]/pharmacy #[id number] - [address] documented in this encounter Plan of Treatment Not on file documented as of this encounter Visit Diagnoses Not on filedocumented in this encounter Additional Health Concerns Assessment Noted Time PHQ-9 Depression Total Score: 4 08/28/19 23 3:18 PM EDT documented as of this encounter Care Teams Assistant Produce Manager Relationship Specialty Start Date End Date Name, MD Lucien [address] [place] [address] PCP - General Family Medicine 08/07/15 documented as of this encounter
--- OUTSIDE RECORDS SUMMARY | 2025-05-22 12:43 | XMS_ITS | Encounter Summary ---
Author Organization [employer] Address 75 [facility] 7t [place] [address] Care Team Providers Care Battery Wrecker Operator Name Role Phone Name, Lucien REAL Primary Care Provider [phone] Reason for Visit * Reason Comments Med Refill Encounter Details Date Type Department Care Team ([facility] st Contact Info) Description 03/22/2023 Refill [facility] [address] [place], [place] [phone] Name, MD Lucien [address] [place] [address] High cholesterol; Asthma, unspecified asthma severity, unspecified [...] documented as of this encounter Care Teams Battery Wrecker Operator Relationship Specialty Start Date End Date Name, MD Lucien [address] [place] [phone] PCP - General Family Medicine 08/07/15 documented as of this encounter
--- OUTSIDE RECORDS SUMMARY | 2025-05-22 12:43 | XMS_ITS | Clinical Summary ---
Author Organization [email or web address] Address [address] [facility] [address] [place] [address] Care Team Providers Care Experimental Mechanic [employer] Name Role Phone Name, Lucien REAL Primary Care Provider [phone] Allergies No known active allergies Medications carbamide [...] SAME TIME. 28 patch 03/23/20 23 Active Acetaminophen Extra Strength 500 MG tabletIndication [...] DAY 90 tablet 1 04/10/20 25 Active Ventolin HFA 108 (90 Base) MCG/ACT inhalerIndicatio ns:Moderate persistent asthma without complication INHALE 2 PUFFS EVERY 6 HOURS IF NEEDED FOR WHEEZING. 18 g 11 05/10/20 25 Active albuterol 108 (90 Base) MCG/ACT inhalerIndicatio ns:Moderate persistent asthma without complication Inhale 2 puffs every 6 (six) hours if needed for wheezing. 18 g 11 01/26/20 24 025 Discontinued Active Problems Problem Noted Date [...] the abdomen/pelvis/chest at time of diagnosis in [facility] on August 2022. Colonoscopy still pending as of 03/14/2024. He follows at [facility] hematology and is on Eliquis Chest pain 04/07/2017 Diabetes mellitus 11/02/2013 Assessment & Plan (07/13/2023 7:29 PM EST): Zeenat lowfilemon, glucometer reveals random sugars in 150s range, pillowcase folder denies lows Continue current regimen Schizophrenia 04/11/2013 Assessment & Plan (07/13/2023 7:27 PM EST): Endorses auditory hallucinations but feels safe, in close care with psychiatry and [facility] rn program Resolved Problems Problem Noted [...] toenail or fix his callus here in [facility] and advise that he f up w platen press feeder. Per caregiver pt has apt w platen press feeder in 2 wk, Dr. Rolando Jimenez on 02/11/2023 in [place]. -Despite these explanations, pt got very upset and left the examining room. -I advised pt to examine his feet daily and use creams to keep them hydrated, and to return if there is a break on skin or signs of infection. Impacted cerumen 08/27/2022 03/14/2024 Smoker 11/02/2013 09/28/2022 Neck pain 07/11/2013 03/14/2024 Encounters Date Type Department Care Team Description 05/09/2025 Refill [facility] CHC MED & PEDS [address] [place], [place] [phone] Name, MD Lucien Moderate persistent asthma without complication 04/09/2025 Refill [facility] MEDICINE [address] [place] [address] Lucien Morales MD Asthma, unspecified asthma severity, unspecified whether complicated, unspecified whether persistent; Heartburn; High cholesterol 03/22/2025 11:15 AM EDT Office Visit [facility] MEDICINE [address] [place] [address] Lucien Morales MD Type 2 diabetes mellitus without complication, without long-term current use of insulin (HCC) (Primary Dx); Schizophrenia, unspecified type (HCC); History of DVT of lower extremity; Encounter for immunization; Encounter for vaccination 03/22/2025 Travel 03/21/2025 Telephone [facility] CHC MED & PEDS [address], [place] [phone] Lucien Morales MD Chart Prep 03/05/2025 Refill [facility] MEDICINE [address] [place] [address] Lucien Morales MD from Last 3 Months Immunizations Immunization Administration [...] history exists Depression Screening 12/27/2025 12/27/2024, 12/28/19 25 Diabetes: Foot Exam 12/27/2025 12/27/2024, 12/27/2024, 12/27/2024, [...] Procedure Name Priority Date/Time Associated Diagnosis Comments POCT GLYCATED HEMOGLOBIN, TOTAL Routine 12/27/2024 10:26 AM EDT Type 2 diabetes mellitus without complication, without long-term current use of insulin ([facility]) HEPATITIS C ANTIBODY Routine 08/11/2023 10:35 AM EDT Unintentional weight loss HIV 1/2 ANTIGEN/ANTIBODY, FOURTH GENERATION W/RFL Routine 08/11/2023 10:35 AM EDT Unintentional weight loss ZZZ HISTORICAL LIPID PANEL Routine 03/14/2021 9:49 AM EDT from Last 3 Months or Most Recently Relevant to Health Maintenance Results * (ABNORMAL) POCT HGB A1C (12/27/2024 10:26 AM EDT) Hemoglobin A1C 6.4(A) 4.0 - 5.7 % QC Media Lot # [id number] Lot# Expiration Date Blood 12/27/2024 10:2 6 AM EDT us Lucien Name POINT OF CARE TEST ENTER/EDIT OR DERABLES Final Result * Hepatitis C Ab (08/11/2023 10:35 AM EDT) Hepatitis C Antibody Nonreactive Nonreactive [facility] Comment:Antibodies to HCV no t detected; does not exclude early acuteHCV infection. Blood Venous blood specimen / Unknown 08/11/2023 10:35 AM EDT 08/11/2023 10:36 AM EDT us Rosi Navarro NP LAB BLOOD ORDERABLES Final Resul t Performing Organization Address City/[facility]/ZIP Co de Phone Number [facility] [address] [place] [phone] * HIV-1/2 Antigen and Antibodies, Fourth Generation, with Reflexes (08/11/2023 10:35 AM EDT) HIV AB/AG Nonreactive Nonreactive [facility] Comment:HIV-1 p24 Ag and/or HIV-1/HIV-2 Ab not detected.A test result that is nonreactive does not exclude thepossibility of exposure to or infection with HIV-1 and/orHIV-2. Nonreactive results in this assay for individualswith prior exposure to HIV-1 and/or HIV-2 may be due toantigen and antibody levels that are below the limit ofdetection of this assay.The [facility] HIV Ag/Ab Combo assay result andsupplemental assay results should be interpreted inconjunction with the patient's clinical presentation,history and other laboratory results. If the results areinconsistent with clinical evidence, additional testing issuggested to confirm the result. Blood Venous blood specimen / Unknown 08/11/2023 10:35 AM EDT 08/11/2023 10:36 AM EDT us Rosi Navarro NP LAB BLOOD ORDERABLES Final Resul t Performing Organization Address City/[facility] Co de Phone Number [facility] [address] [place] [phone] * (ABNORMAL) LIPID PANEL (03/14/2021 9:49 [...] to 190 mg/dL Triglycerides 171 mg/dL [facility] Comment: Desirable Triglyceride: less than [...] >60 [facility] Comment: NOTE: For -Sudanese individuals, multiply the result by 1.210. Chronic [...] Name HISTORICAL/NON ORDERABLE LABS Fi nal Result [facility] [address] from Last 3 Months or Most Recently Relevant to Health Maintenance Insurance [facility] C3 Advance Directives Documents on File Type Date Recorded Patient Education Coordinator Expl anation Power of Enrichment Director 09/09/2023 Power of A ttorney Care Teams Experimental Mechanic [employer] Relationship Specialty Start Date End Date Name, MD Lucien [address] [place] [address] PCP - General Family Medicine 08/07/15
--- OUTSIDE RECORDS SUMMARY | 2025-05-22 12:43 | XMS_ITS | Encounter Summary ---
Author Organization [employer] Address [address] [facility] [address] [place] [address] Care Team Providers Care Editor Department Name Role Phone Name, Lucien REAL Primary Care Provider [phone] Reason for Visit * Reason Onset Date Comments triage 08/13/2022 Encounter Details Date Type Department Care Team ([facility] st Contact Info) Description 08/13/2022 Telephone [facility] MEDICINE [address] [place], [place] [phone] Name, MD Lucien [address] [place] [address] triage Social History Tobacco Use Types Packs/Day [...] unable to reach Pt, phone isn't working. aboriginal education worker coordinator Yanni is contacted, apt is made with CONNOR Manter 08/27 @ 330pm for request for referral [...] on filedocumented in this encounter Care Teams Editor Department Relationship Specialty Start Date End Date Name, MD Lucien [address] [place] [phone] PCP - General Family Medicine 08/07/15 documented as of this encounter
--- OUTSIDE RECORDS SUMMARY | 2025-05-22 12:43 | XMS_ITS | Encounter Summary ---
Author Organization [employer] Address [address] [facility] [address] [place] [address] Care Team Providers Care Institution Librarian Name Role Phone Name, Lucien REAL Primary Care Provider [phone] Reason for Visit * Reason Onset Date Comments ER Follow-up 03/15/2023 Encounter Details Date Type Department Care Team ([facility] Contact Info) Description 03/15/2023 Telephone [facility] MEDICINE [address] [place], [place] [phone] Name, MD Lucien [address] [place] [address] ER Follow-up Social History Tobacco Use Types [...] T/C x 1 am to pt. On [phone] for below message, No answer. LVM to call back on [phone]. * Telephone Encounter - Marilyn Cabral - 03/15/2023 1:59 PM EDT Tc from [facility] with [facility] Miya calling to report pt ED visit on 03/13/2023 at [facility] [place]. Seen for ankle sprain. [facility] advised will forward to team nurse for follow up. Please call [facility] for appt [phone] documented in this encounter Plan of Treatment Not on file documented as of this encounter Visit Diagnoses Not on filedocumented in this encounter Additional Health Concerns Assessment Noted Time PHQ-9 Depression Total Score: 4 08/28/19 23 3:18 PM EDT documented as of this encounter Care Teams Institution Librarian Relationship Specialty Start Date End Date Name, MD Lucien [address] [place] [address] PCP - General Family Medicine 08/07/15 documented as of this encounter
--- OUTSIDE RECORDS SUMMARY | 2025-05-22 12:43 | XMS_ITS | Clinical Summary ---
Author Organization [address] [facility] Address [address] [place] [address] Phone Care Team Providers Care Hospice Educator Name Role Phone Unavailable Primary Care Provider Unavailabl e Allergies No known active allergies Medications ammonium lactate (LAC-HYDRIN) 12 % lotion Apply to soles of feet daily. At night wear socks to bed 06/15/2023 Active Encounters Date Type Department Care Team Description 02/21/2025 10:30 AM EDT Office Visit Orthopedic Surgery [facility] [address] [phone] Giacomo Salter DPM Controlled type [...] Upcoming Encounters Date Type Department Care Team ([facility] st Contact Info) Description 05/30/2025 2:15 PM EST Office Visit Orthopedic Surgery [facility] [address] [place] [phone] Giacomo Salter, DPVictoria [address] [facility] [address] [place] [address] Health Maintenance Due Date Last Done Comments [...] Annual BMP Blood Test (08/19/2023) Pathologist [facility] Annual BMP Blood Test Abstracted [facility] Provider HEALTH MAINTENANCE Final Result * HIV Screening (08/11/2023) [facility] HIV Screening Abstracted [facility] Provider HEALTH MAINTENANCE Final Result * Hepatitis C Screening (08/11/2023) [facility] Hepatitis C Screening Abstracted [facility] Provider HEALTH MAINTENANCE Final Result * Hemoglobin A1c (08/03/2023) [facility] Hemoglobin A1C 0.0 % Comment:No interpretation Blood Venous blood specimen / Unknown Result [facility] Provider LAB BLOOD ORDERABLES Carrie l Result * Lipid panel (03/14/2021) [facility] LDL/HDL Ratio 0 Comment:No interpretation Triglycerides 0 mg/dL Comment:No interpretation Cholesterol 0 mg/dL Comment:No interpretation HDL 0 mg/dL Comment:No interpretation LDL Cholesterol 0 mg/dL Comment:No interpretation Blood Venous blood specimen / Unknown Historical Provider LAB BLOOD ORDERABLES Carrie l Result from Last 3 Months or Most Recently Relevant to Health Maintenance Insurance [place]
== END 2025-05-22 09:49 | disposition home or self-care (01) ==
LOC: HO.LABR 09:48
PROVIDERS: PCP Internal Medicine Geriatric Medicine
DX: Z79.899 Other long term (current) drug therapy (principal)
CPT/HCPCS: 36415; 85025